=== PATIENT | male | born 1940 | race Hispanic/Latino ===

== ENCOUNTER 2017-07-29 10:58 | Outpatient (CLI) | payer MEDICARE, MEDICAID ==
--- NOTE | 2017-07-29 12:54 | SJPRAD ---
PA AND LATERAL CHEST: History: COPD. FINDINGS: The heart size is enlarged. There are post op sternotomy changes. Right sided Mediport catheter is p resent. Surgical clips in the left hilar region with scarring and volume loss changes of the left duane ng are again noted and appear stable. IMPRESSION: Stable chest. POS: [facility]
== END 2017-07-29 10:59 | disposition home or self-care (01) ==
LOC: MWLC RAD 10:58
PROVIDERS: ATTEND Family Medicine
DX: J44.9 Chronic obstructive pulmonary disease, unspecified (principal)

== ENCOUNTER 2018-01-05 07:22 | Emergency (ER) | payer MEDICARE, MEDICAID ==
[2018-01-05 08:18] LABS: #Eosinphils 0.3 thou/uL (0.0-0.7); #Lymphocytes 1.6 thou/uL (1.20-3.40); #Neutrophils 9.7 thou/uL (1.40-6.50); %Basophils 0.1 % (0.0-1.0); %Eosinophils 2.1 % (0.0-10.0); %Monocytes 7.6 % (0.0-10.0); %Neutrophils 77.2 % (42.0-75.0); Hemoglobin 11.9 g/dL (14.0-18.0); Mean Corpuscular HGB CONC 31.2 g/dL (32.0-36.0); Mean Corpuscular Hemoglobin 28.7 pg (27.0-31.0); Mean Corpuscular Volume 91.9 fl (80.0-94.0); Platelet Count 275 thou/uL (130-400); RBC Distribution Width 14.3 % (11.5-14.5); Red Blood Cell (RBC) Count 4.16 mill/uL (4.70-6.10); White Blood Cell (WBC) Count 12.6 thou/uL (4.8-10.8)
[2018-01-05 08:21] LABS: Bilirubin Negative (Negative); Blood, Urine Large (Negative); Clarity TURBID (Clear); Glucose, Urine (Dipstick) Negative (Negative); Leukocyte Large (Negative); Nitrite Negative (Negative); Protein, Urine (Dipstick) 300 mg/dL (Neg-Trace); Specific Gravity, Urine 1.017 (1.002-1.036)
[2018-01-05 08:23] LABS: Bacteria/HPF 4+ HPF (None Seen)
[2018-01-05 08:29] LABS: Pathc Cast-AUWi Flag 201.41 (0-2.49)
[2018-01-05 08:38] LABS: ALT (SGPT) 11 U/L (8-55); AST (SGOT) 16 U/L (5-34); Albumin 2.9 g/dL (3.4-4.8); Alkaline Phosphatase 100 U/L (40-150); Anion Gap 13 mmol/L (10-20); BUN (Urea Nitrogen) 17 mg/dL (8.4-25.7); Bilirubin, Total 0.3 mg/dL (0.2-1.2); Calc. Creatinine Clearance 0 mL/min (70-130); Calcium 8.5 mg/dL (7.8-10.44); Carbon Dioxide 25 mmol/L (23-31); Chloride 99 mmol/L (98-107); Estimated GFR-MDRD 28; Globulin 4.8 g/dL (2.4-3.5); Glucose 123 mg/dL (83-110); Potassium 3.7 mmol/L (3.5-5.1); Protein, Total 7.7 g/dL (5.8-8.1); Sodium 133 mmol/L (136-145)
[2018-01-05 08:43] LABS: Amphetamine Not Detected (NotDetected); Barbiturates Screen Not Detected (NotDetected); Benzodiazepine Screen Not Detected (NotDetected); Cocaine Metabolite Screen Not Detected (NotDetected); Medtox Reader # READER 1; Methadone Not Detected (NotDetected); Methamphetamine Not Detected (NotDetected); Opiate Screen Not Detected (NotDetected); Phencyclidine (PCP) Not Detected (NotDetected); THC/Cannabinoid Screen Not Detected (NotDetected); Tricyclic Screen Not Detected (NotDetected)
[2018-01-05 08:44] LABS: Medtox Control Line Valid? VALID (VALID); Oxycodone Screen Not Detected (NotDetected)
[2018-01-05 08:46] LABS: Hyaline Casts/LPF 0-3 HYALINE CAST LPF (0-3 Hyaline); Yeast-All Forms None Seen HPF (None Seen)
[2018-01-05 08:47] LABS: Manual Microscopic Reviewed? No Path Casts Seen; Renal Epithelial 0-3 HPF (0-3); Transitional Epithelial 0-3 HPF (0-3)
--- NOTE | 2018-01-05 09:03 | RAD ---
PORTABLE CHEST: Date: 01/05/18 Time: 0822 hours HISTORY: Dyspnea. FINDINGS/IMPRESSION: Comparison made with exam of 07/29/17. Changes of median sternotomy are again seen. Right-sided Port-A-Cath remains in place. Surgical clips in the left hilar region and scarring and volume loss in the left lung are again noted. No lobar con solidation, pneumothoraces, or large effusions are seen. POS: [facility]
[2018-01-05 09:07] LABS: CKMB 3.7 ng/mL (0-6.6); Troponin I 0.014 ng/mL (< 0.028)
[2018-01-05] MEDS ORDERED: traMADol HCl 50 MG TAB ONE (09:51)
== END 2018-01-05 10:41 | disposition home or self-care (01) ==
LOC: ERS 07:22
DX: E11.649 Type 2 diabetes mellitus with hypoglycemia without coma (principal); E86.0 Dehydration; E78.5 Hyperlipidemia, unspecified; I10 Essential (primary) hypertension; Z79.899 Other long term (current) drug therapy
CPT/HCPCS: 36415; 36416; 71045; 80053; 80306; 81003; 81015; 82553; 83880; 84484; 85025; 87077; 87086; 87186; 93005; 96374; J0696

== ENCOUNTER 2018-01-07 22:47 | Emergency (ER) | payer MEDICARE, OTHER ==
[2018-01-07 23:25] LABS: #Basophils 0.1 thou/uL (0.0-0.2); #Eosinphils 0.5 thou/uL (0.0-0.7); #Monocytes 0.6 thou/uL (0.11-0.59); %Basophils 0.8 % (0.0-1.0); %Eosinophils 4.8 % (0.0-10.0); %Lymphocytes 19.8 % (21.0-51.0); %Monocytes 5.9 % (0.0-10.0); %Neutrophils 68.6 % (42.0-75.0); Mean Corpuscular Hemoglobin 29.6 pg (27.0-31.0); Mean Corpuscular Volume 89.6 fl (80.0-94.0); Platelet Count 274 thou/uL (130-400); RBC Distribution Width 13.9 % (11.5-14.5); Red Blood Cell (RBC) Count 4.07 mill/uL (4.70-6.10); White Blood Cell (WBC) Count 10.2 thou/uL (4.8-10.8)
[2018-01-07 23:43] LABS: ALT (SGPT) 20 U/L (8-55); AST (SGOT) 41 U/L (5-34); Alkaline Phosphatase 103 U/L (40-150); Anion Gap 14 mmol/L (10-20); BUN (Urea Nitrogen) 17 mg/dL (8.4-25.7); Bilirubin, Total 0.2 mg/dL (0.2-1.2); Calc. Creatinine Clearance 0 mL/min (70-130); Calcium 8.8 mg/dL (7.8-10.44); Carbon Dioxide 26 mmol/L (23-31); Chloride 99 mmol/L (98-107); Estimated GFR-MDRD 29; Globulin 4.9 g/dL (2.4-3.5); Glucose 105 mg/dL (83-110); Potassium 3.9 mmol/L (3.5-5.1); Protein, Total 7.9 g/dL (5.8-8.1); Sodium 135 mmol/L (136-145)
[2018-01-08 01:25] LABS: Bilirubin Negative (Negative); Blood, Urine Large (Negative); Glucose, Urine (Dipstick) Negative (Negative); Leukocyte Moderate (Negative); Nitrite Negative (Negative); Protein, Urine (Dipstick) 100 mg/dL (Neg-Trace); Urobilinogen 0.2 mg/dL (0.2-1.0)
[2018-01-08 01:27] LABS: Clarity Clear (Clear); RBC/HPF 0-3 HPF (0-3)
[2018-01-08 01:28] LABS: Bacteria/HPF 1+ HPF (None Seen); Hyaline Casts/LPF 0-3 HYALINE CAST LPF (0-3 Hyaline); Other Microscopic Description Less than 2 mL rec'd; Squamous Epithelial 0-3 HPF (0-3)
[2018-01-08] MEDS ORDERED: Simethicone Chewable 80 MG TAB PO SCH (02:15)
== END 2018-01-08 02:19 | disposition home or self-care (01) ==
LOC: ERS 22:47
DX: E11.649 Type 2 diabetes mellitus with hypoglycemia without coma (principal); E78.5 Hyperlipidemia, unspecified; I10 Essential (primary) hypertension; Z85.038 Personal history of other malignant neoplasm of large intestine; Z85.118 Personal history of other malignant neoplasm of bronchus and lung; Z79.84 Long term (current) use of oral hypoglycemic drugs; Z79.899 Other long term (current) drug therapy
CPT/HCPCS: 36415; 36416; 80053; 81003; 81015; 85025; 94640; J7620

== ENCOUNTER 2018-01-14 10:28 | Emergency (ER) | payer MEDICARE, MEDICAID | END 2018-01-14 17:40 | disposition home or self-care (01) | LOC: ERS 10:28 | DX: E11.649 Type 2 diabetes mellitus with hypoglycemia without coma (principal); I11.0 Hypertensive heart disease with heart failure; I50.9 Heart failure, unspecified; E78.5 Hyperlipidemia, unspecified; Z79.899 Other long term (current) drug therapy | CPT/HCPCS: 36416; 99285 ==

== ENCOUNTER 2018-03-03 10:41 | Inpatient (IN) | payer MEDICARE, MEDICAID ==
[2018-03-03] MEDS ORDERED: Lorazepam 2 MG/ML VIAL ONE (11:56)
[2018-03-03] MEDS ORDERED: cefTRIAXone\\ROCEPHIN 2 GM VIAL ONE (12:23)
--- NOTE | 2018-03-03 12:33 | CT ---
CT BRAIN WITHOUT CONTRAST: HISTORY: Nausea, vomiting, weakness. FINDINGS: Comparison is made with the exam of 06/25/15. There are changes of cortical atrophy. 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 The ventricle size is appropriate and the basilar cisterns patent. No evidence of acute infarction, midline shift, or abnormal extraaxial fluid collections is seen. The bony calvarium is i ntact. IMPRESSION: No CT evidence of acute intracranial process. POS: [facility]
[2018-03-03 12:42] LABS: #Eosinphils 0.2 thou/uL (0.0-0.7); #Lymphocytes 1.1 thou/uL (1.20-3.40); #Neutrophils 14.8 thou/uL (1.40-6.50); %Basophils 0.2 % (0.0-1.0); %Eosinophils 1.1 % (0.0-10.0); %Lymphocytes 6.6 % (21.0-51.0); %Monocytes 6.1 % (0.0-10.0); %Neutrophils 86.1 % (42.0-75.0); Hemoglobin 10.5 g/dL (14.0-18.0); Mean Corpuscular HGB CONC 31.9 g/dL (32.0-36.0); Mean Corpuscular Hemoglobin 28.4 pg (27.0-31.0); Mean Corpuscular Volume 89.2 fl (80.0-94.0); Mean Platelet Volume 8.3 fL (7.4-10.4); Platelet Count 242 thou/uL (130-400); RBC Distribution Width 13.8 % (11.5-14.5); White Blood Cell (WBC) Count 17.2 thou/uL (4.8-10.8)
[2018-03-03 13:05] LABS: ALT (SGPT) 61 U/L (8-55); AST (SGOT) 104 U/L (5-34); Albumin 2.6 g/dL (3.4-4.8); Alkaline Phosphatase 207 U/L (40-150); Anion Gap 12 mmol/L (10-20); BUN (Urea Nitrogen) 33 mg/dL (8.4-25.7); Bilirubin, Total 0.9 mg/dL (0.2-1.2); Calc. Creatinine Clearance 0 mL/min (70-130); Calcium 8.4 mg/dL (7.8-10.44); Carbon Dioxide 24 mmol/L (23-31); Chloride 95 mmol/L (98-107); Estimated GFR-MDRD 21; Globulin 5.4 g/dL (2.4-3.5); Glucose 168 mg/dL (83-110); Potassium 4.8 mmol/L (3.5-5.1); Sodium 126 mmol/L (136-145)
[2018-03-03 13:51] LABS: Bacteria/HPF 1+ HPF (None Seen); Bilirubin Moderate (Negative); Blood, Urine Large (Negative); Glucose, Urine (Dipstick) 100 mg/dL (Negative); Leukocyte Large (Negative); Nitrite Positive (Negative); Protein, Urine (Dipstick) > or equal to 300 mg/dL (Neg-Trace); Squamous Epithelial 21-50 HPF (0-3); pH, Urine 6.5 (5.0-9.0)
[2018-03-03 13:53] LABS: Clarity Cloudy (Clear)
[2018-03-03 13:54] LABS: Hyaline Casts/LPF >50 HYALINE CAST LPF (0-3 Hyaline); Pathc Cast-AUWi Flag 793.73 (0-2.49)
[2018-03-03 14:09] LABS: RBC/HPF GREATER THAN 50-TNTC HPF (0-3)
[2018-03-03 14:11] LABS: Crystals/HPF 3+ AMORPH URATES HPF (Negative); Other Casts/LPF None Seen LPF (0-3 Hyaline); Yeast-All Forms None Seen HPF (None Seen)
--- NOTE | 2018-03-03 14:41 | RAD ---
RADIOGRAPH CHEST 1 VIEW: Date: 03/03/18. Time: 1:48 p.m. HISTORY: A 77-year-old male with cough. COMPARISON: 02/03/18. FINDINGS: Sternotomy wires. Right subclavian implantable vascular access port. Indistinctness of entire left cardiac border, and interval worsening of effacement of entire left hemidiaphragmatic shadow. Interv al increase in thickness of apparently moderately large soft tissue density mass at the left upper me diastinum, causing displacement of the trachea. Interstitial markings are prominent throughout the r ight lung, but there is no airspace density there. No pneumothorax. IMPRESSION: 1. Interval worsening of apparently diffuse infiltrative process involving much of the left lung, an d interval enlargement of mass-like process at the left upper mediastinum. 2. Recommend CT of the chest for further evaluation (preferably with IV contrast unless contraindica taya). RADHA [] POS: [facility]
--- NOTE | 2018-03-03 15:32 | RAD ---
ONE VIEW CHEST: Comparison: 03-03-18 History: Status post central line placement. FINDINGS: Stable right sided Mediport catheter. Stable opacification of the left hemithorax. Stable configurati on of the cardiac silhouette. Stable atherosclerosis. Stable sternotomy wires. Interval placement of right sided central venous catheter with the distal tip in the superior vena cava. No pneumothorax. IMPRESSION: 1. Stable opacification of the left hemithorax. 2. Interval placement of a right sided central venous catheter with the distal tip in the superior ve na cava. No pneumothorax. POS: [facility]
[2018-03-03] MEDS ORDERED: Norepinephrine 8 MG in Dextrose 5% in Water 242 ML IVPB PRN (15:43)
[2018-03-03 16:40] LABS: Lactic Acid 1.1 mmol/L (0.5-2.2)
[2018-03-03] MEDS ORDERED: Ondansetron HCl/PF 4 MG/2 ML Vial IVP PRN (19:10)
[2018-03-03] MEDS ORDERED: CCU Electrolyte Replacement 1 EACH FS SCH (19:10)
[2018-03-03] MEDS ORDERED: Dextrose 5% in Water 1,000 ML IV PRN (19:10)
[2018-03-03] MEDS ORDERED: Norepinephrine 8 MG/0.9% NS 250 ML IVPB SCH (19:10)
[2018-03-03] MEDS ORDERED: Dextrose 50% Abboject 50 ML SYRINGE SLOW IVP PRN (19:10)
[2018-03-03] MEDS ORDERED: Potassium Phosphate 9 MMOL in Sodium Chloride 0.9% 100 ML IVPB PRN (19:16)
[2018-03-03] MEDS ORDERED: Potassium Chloride 40 MEQ in Premix Bag 1 BAG IVPB PRN (19:16)
[2018-03-03] MEDS ORDERED: Magnesium Oxide 400 MG TAB PO PRN ×2 (19:16)
[2018-03-03] MEDS ORDERED: Potassium Chloride 40 MEQ in Sodium Chloride 0.9% 250 ML 250 ML IVPB PRN (19:16)
[2018-03-03] MEDS ORDERED: Potassium Phosphate 15 MMOL in Sodium Chloride 0.9% 250 ML 250 ML IV PRN (19:16)
[2018-03-03] MEDS ORDERED: Potassium Chloride 20 MEQ TAB PO PRN (19:16)
[2018-03-03] MEDS ORDERED: CCU ELECTROLYTE REPLACEMENT PROTOCOL FS PRN (19:16)
[2018-03-03] MEDS ORDERED: Magnesium 2 GM/NS 0.9% 100 ML 2 GM in Premix Bag 1 BAG IVPB PRN (19:16)
[2018-03-03] MEDS ORDERED: Potassium Phosphate 12 MMOL in Sodium Chloride 0.9% 250 ML 250 ML IV PRN (19:16)
[2018-03-03] MEDS: Benzonatate 100 MG CAP PO SCH (20:34)
[2018-03-03] MEDS: traMADol HCl 50 MG TAB PO PRN (20:35)
[2018-03-03] MEDS: Cefepime 2 GM, Syringe 2.5 ML in Sterile Water 10 ML SLOW IVP SCH (20:36)
[2018-03-03] MEDS: Sodium Chloride 0.9% 1,000 ML IV SCH (20:39)
[2018-03-03] MEDS: HumaLOG 300 UNITS/3 ML VIAL SC PRN (20:54)
[2018-03-03] MEDS ORDERED: Cefepime 2 GM in Sodium Chloride 0.9% 100 ML IVPB SCH (21:00)
--- NOTE | 2018-03-03 21:30 | CON ---
DATE OF CONSULTATION: 03/03/2018 REASON FOR CONSULTATION: CCU admission for blood pressure support related to hypotension. HISTORY OF PRESENT ILLNESS: This is a patient who has formerly seen my partner , Dr. Dolan. He has a history of colon cancer and has a colostomy and an indwelling suprapubic catheter. He has had poor dietary intake and fluid intake over the last 3 days. He was brought to the ER and found to be hypotensive. He was given 3 liters of fluid and subsequently started on Levophed drip. His suprapubic catheter was changed out. The source of infection seems to be a suprapubic and he has lots of cellulitis around the suprapubic insertion site. PAST MEDICAL HISTORY: 1. Colon cancer. 2. Diabetes mellitus type 2. 3. Status post low anterior resection with subsequent radiation therapy. 4. Colonic vesicular fistula. PAST SURGICAL HISTORY: 1. Suprapubic catheter placement. 2. Coronary artery bypass grafting surgery. 3. Right MediPort placement. SOCIAL HISTORY: Former smoker, does not consume alcohol. Lives at home in [place]. ALLERGIES: ACETAMINOPHEN. FAMILY MEDICAL HISTORY: Unremarkable. MEDICATIONS PRIOR TO ADMISSION: Tramadol, Glucotrol, sertraline, Ditropan, meclizine, losartan, levothyroxine, Levemir, ciprofloxacin, calcitriol, benzonatate, atorvastatin and aspirin. REVIEW OF SYSTEMS: Twelve point review of systems otherwise negative. PHYSICAL EXAMINATION: VITAL SIGNS: Temperature 97.0, pulse 73, blood pressure 97/62 on 2.5 mcg of Levophed per minute, O2 sat 100%, respiratory rate 19. GENERAL: He is awake, pleasant, and in no distress. HEENT: Unremarkable. NECK: Without adenopathy, JVD, or bruits. LUNGS: Coarse breath sounds bilaterally. CARDIOVASCULAR: S1, S2, slightly tachycardic without murmur. ABDOMEN: Suprapubic catheter site showed a denuded skin around the catheter site. He has a colostomy present in the left side. EXTREMITIES: No clubbing, cyanosis, or edema. NEUROLOGIC: Grossly intact throughout. LAB AND X-RAY FINDINGS: Sodium 126, potassium 4.8, chloride 95, CO2 of 24, BUN 33, creatinine 2.8, glucose 168. Initial lactate 2.5, repeat lactate 1.1, AST 104, ALT 61, alkaline phosphatase 207. White blood cell count 17.2, hematocrit 33, platelet count 242 with 86% neutrophils. Brain CT showed no evidence of intracranial process. Chest x-ray reviewed personally by myself demonstrates a right IJ central line that is in good position. He has chronic interstitial changes in the left base. This looks like it was present back in January. ASSESSMENT: 1. Septic shock, likely from urosepsis related suprapubic catheter. 2. Cellulitis around the suprapubic catheter site. 3. History of colon cancer. 4. Prerenal azotemia. PLAN: I have reviewed the orders from the Hospitalist group. I agree with the IV fluid resuscitation, low dose Levophed and broad spectrum IV antibiotics include cefepime and Cipro. I will inform Dr. Dolan the patient's hospitalization. The consultation encompassed 70 minutes time, of that time, greater than 50% was spent with the patient and/or on the patient's unit in the hospital [facility]
[2018-03-04] MEDS: Sodium Chloride 0.9% 1,000 ML IV SCH ×4 (03:10→23:21)
[2018-03-04] MEDS: traMADol HCl 50 MG TAB PO PRN ×2 (03:29→20:08)
[2018-03-04] MEDS: Benzonatate 100 MG CAP PO SCH ×3 (08:54→20:08)
[2018-03-04] MEDS: Aspirin 81 mg Enteric Coated Tablet PO SCH (08:54)
[2018-03-04] MEDS: Levothyroxine 150 MCG TAB PO SCH (08:54)
[2018-03-04] MEDS: HumaLOG 300 UNITS/3 ML VIAL SC PRN ×4 (08:59→21:33)
[2018-03-04] MEDS: Cefepime 2 GM, Syringe 2.5 ML in Sterile Water 10 ML SLOW IVP SCH ×2 (09:03→21:37)
[2018-03-04] MEDS: Oxybutynin 5 MG TAB PO SCH (09:03)
--- NOTE | 2018-03-04 09:10 | PRG ---
DATE OF SERVICE: 03/04/2018 This morning he is awake, alert, responsive. He is off all the pressors. PHYSICAL EXAMINATION: VITAL SIGNS: Blood pressure is 120/68, pulse is 74, sats are 99% on 2 liters, respirations 21. He has pain, nausea or vomiting. He had difficulty breathing. He was hypotensive yesterday, felt secondary to urosepsis. GENERAL: On examination, as noted, no distress. VITAL SIGNS: Blood pressure is 120/66, pulse 76. Respirations 21. CHEST: Chest revealed minimal rhonchi. CARDIAC: Normal S1, S2, no gallops. ABDOMEN: Soft, no masses. His chest x-ray shows pacemaker in place. Some cephalization. Slight haziness in the left base. He had a CT brain done which showed no evidence of any acute process. His lab this morning shows his white count 17,000, H&H 10 and 33, platelet count 242. Sodium is 126. Creatinine is 2.8. IMPRESSION: 1. Urosepsis. 2. Hypotension. 3. Hyponatremia. 4. Severe deconditioning. PLAN: Since his hypotension has improved I suggest PT and supportive care. Continue IV antibiotics as prescribed. Hopefully, when stable, he can be transferred out of the ICU in the next 24-48 hours. I will follow.
--- NOTE | 2018-03-04 17:12 | PDOC.PN ---
- Subjective Encounter Start Date: 03/04/18 Encounter Start Time: 14:40 seeing pt in follow up for UTi, sepsis, and septic shock PT awake and alert, sitting up in bed, feeling much better. weaned off of levophed around 2am, and has remained stable. HR normal. tolerating IV abx. BCx 1/2 sets positive for CoNS - contaminant, UCx pending no f/C, no N/V//D/C, but does have a decreased appetite. no other complaints 10 point ROs performed and neg for all systems except as per HPI - Objective MAR Reviewed: Yes Vital Signs & Weight: Vital Signs (12 hours) Temp Pulse Resp Pulse Ox 03/04/18 16:00 97.9 F 03/04/18 12:00 97.9 F 03/04/18 08:00 98 F 69 18 100 Most Recent Monitor Data Heart Rate from ECG 67 NIBP 143/55 NIBP BP-Mean 72 Respiration from ECG 28 SpO2 100 I&O: 03/03/18 03/04/18 03/05/18 06:59 06:59 06:59 Intake Total 1531 1020 Output Total 1235 1320 Balance 296 -300 Result Diagrams: 03/03/18 11:25 03/03/18 11:25 Additional Labs: Accuchecks 03/04/18 03/04/18 03/04/18 16:31 11:17 06:01 POC Glucose 173 H 202 H 187 H 03/03/18 20:54 POC Glucose 238 H EKG Reviewed by me: Yes Phys Exam - Physical Examination Constitutional: NAD HEENT: PERRLA, moist MMs, sclera anicteric, oral pharynx no lesions Neck: no nodes, no JVD, supple, full ROM Respiratory: no wheezing, no rales, no rhonchi, clear to auscultation bilateral Cardiovascular: RRR, no significant murmur, no rub Gastrointestinal: soft, non-tender, no distention, positive bowel sounds colostomy site intact, SP tube site with decreased erythema Musculoskeletal: pulses present, edema present Neurological: non-focal, normal sensation, moves all 4 limbs Lymphatic: no nodes Psychiatric: normal affect, A&O x 3 Skin: no rash, normal turgor, cap refill <2 seconds Dx/Plan (1) Catheter-associated urinary tract infection Code(s): T83.511A - I/I REACT D/T INDWELLING URETHRAL CATHETER, INIT; N39.0 - URINARY TRACT INFECTION, SITE NOT SPECIFIED Status: Acute Qualifiers: Indwelling urinary catheter type: cystostomy catheter Encounter type: initial encounter Qualified Code(s): T83.510A - Infection and inflammatory reaction due to cystostomy catheter, initial encounter; N39.0 - Urinary tract infection, site not specified; N39.0 - Urinary tract infection, site not specified Comment: suprapubic catheter, infection and sepsis present on admission (2) Septic shock Code(s): A41.9 - SEPSIS, UNSPECIFIED ORGANISM; R65.21 - SEVERE SEPSIS WITH SEPTIC SHOCK Status: Acute Comment: present on admit, resolving. off of pressors, WBC still elevated, knwon infection, HR down, feeling better, N/V resolved (3) History of colon cancer Code(s): Z85.038 - PERSONAL HISTORY OF MALIGNANT NEOPLASM OF LARGE INTESTINE Status: Chronic (4) History of lung cancer Code(s): Z85.118 - PERSONAL HISTORY OF MALIGNANT NEOPLASM OF BRONCHUS AND LUNG Status: Chronic (5) DM2 (diabetes mellitus, type 2) Status: Chronic Qualifiers: Diabetes mellitus long-term insulin use: with marine oil terminal superintendent use Diabetes mellitus complication status: without complication Qualified Code(s): E11.9 - Type 2 diabetes mellitus without complications; Z79.4 - care home (current) use of insulin; Z79.4 - adjunct faculty for medical terminology (current) use of insulin; Z79.4 - adjunct faculty for medical terminology ( current) use of insulin; Z79.4 - care home (current) use of insulin - Plan cont current plan of care, simon catheter, continue antibiotics, PT/OT, respiratory therapy, out of bed/ambulate * .
[2018-03-05] MEDS: Sodium Chloride 0.9% 1,000 ML IV SCH ×2 (01:23→08:26)
[2018-03-05 04:49] LABS: #Eosinphils 0.4 thou/uL (0.0-0.7); #Lymphocytes 1.5 thou/uL (1.20-3.40); #Monocytes 0.9 thou/uL (0.11-0.59); #Neutrophils 7.3 thou/uL (1.40-6.50); %Basophils 0.1 % (0.0-1.0); %Eosinophils 3.6 % (0.0-10.0); %Lymphocytes 14.5 % (21.0-51.0); %Monocytes 8.6 % (0.0-10.0); %Neutrophils 73.3 % (42.0-75.0); Hemoglobin 9.2 g/dL (14.0-18.0); Mean Corpuscular HGB CONC 31.5 g/dL (32.0-36.0); Mean Corpuscular Volume 88.8 fl (80.0-94.0); Mean Platelet Volume 7.7 fL (7.4-10.4); Platelet Count 214 thou/uL (130-400); RBC Distribution Width 13.9 % (11.5-14.5); Red Blood Cell (RBC) Count 3.29 mill/uL (4.70-6.10)
[2018-03-05 04:55] LABS: ALT (SGPT) 45 U/L (8-55); AST (SGOT) 52 U/L (5-34); Albumin 2.1 g/dL (3.4-4.8); Alkaline Phosphatase 183 U/L (40-150); Anion Gap 10 mmol/L (10-20); BUN (Urea Nitrogen) 19 mg/dL (8.4-25.7); Bilirubin, Total 0.4 mg/dL (0.2-1.2); Calc. Creatinine Clearance 43 mL/min (70-130); Calcium 7.5 mg/dL (7.8-10.44); Carbon Dioxide 22 mmol/L (23-31); Chloride 109 mmol/L (98-107); Estimated GFR-MDRD 39; Globulin 4.3 g/dL (2.4-3.5); Glucose 118 mg/dL (83-110); Magnesium 1.5 mg/dL (1.6-2.6); Protein, Total 6.4 g/dL (5.8-8.1); Sodium 137 mmol/L (136-145)
[2018-03-05] MEDS: traMADol HCl 50 MG TAB PO PRN ×3 (05:43→17:41)
[2018-03-05] MEDS: Levothyroxine 150 MCG TAB PO SCH (08:15)
[2018-03-05] MEDS: Aspirin 81 mg Enteric Coated Tablet PO SCH (08:17)
[2018-03-05] MEDS: Oxybutynin 5 MG TAB PO SCH (08:17)
[2018-03-05] MEDS: Benzonatate 100 MG CAP PO SCH ×3 (08:17→21:52)
[2018-03-05] MEDS: Ondansetron ODT 4 MG TAB PO PRN (08:24)
[2018-03-05] MEDS: Cefepime 2 GM, Syringe 2.5 ML in Sterile Water 10 ML SLOW IVP SCH ×2 (08:25→21:52)
--- NOTE | 2018-03-05 11:11 | PRG ---
DATE OF SERVICE: 03/05/2018 A 77-year-old gentleman who this morning is complaining of abdominal pain, but denies any nausea or vomiting. He denies difficulty breathing. PHYSICAL EXAMINATION: VITAL SIGNS: Sats are 95% on room air, temperature 97, blood pressure 130/70. CHEST: Chest revealed minimal rhonchi. CARDIAC: Normal S1-S2. No gallops. ABDOMEN: Soft. LABORATORY: White count 10,000, H&H 9 and 29, platelet count is normal. Creatinine 1.72. Blood cul ture; coagulase negative staph, probably a contamination. IMPRESSION: 1. Urinary tract infection. 2. Abdominal pain. 3. Diabetes. 4. Metastatic cancer. PLAN: Continue antibiotics. We will deescalate once all the cultures are back. I will follow.
--- NOTE | 2018-03-05 14:07 | PDOC.PN ---
- Subjective Encounter Start Date: 03/05/18 Encounter Start Time: 12:05 Patiernt is seen today, alert and oriented. No other Concer nnoted. He wants to go home soon. He is admitted with UTI and septic shock. Doing better. - Objective Vital Signs & Weight: Vital Signs (12 hours) Temp Pulse Resp BP Pulse Ox 03/05/18 12:00 98.2 F 79 18 130/69 97 03/05/18 08:14 97.8 F 90 16 136/70 95 03/05/18 07:53 98.7 F 77 16 95 03/05/18 05:02 97 03/05/18 04:48 98 F 77 16 131/63 97 Weight Weight 179 lb Most Recent Monitor Data Heart Rate from ECG 67 NIBP 143/55 NIBP BP-Mean 72 Respiration from ECG 28 SpO2 100 I&O: 03/04/18 03/05/18 03/06/18 06:59 06:59 06:59 Intake Total 1531 4643 Output Total 1235 3245 Balance 296 1398 Result Diagrams: 03/05/18 03:49 03/05/18 03:49 Additional Labs: Accuchecks 03/05/18 03/05/18 03/05/18 11:55 06:24 06:11 POC Glucose 199 H 118 H 119 H 03/04/18 03/04/18 21:31 16:31 POC Glucose 226 H 173 H Radiology Reviewed by me: Yes EKG Reviewed by me: Yes Phys Exam - Physical Examination HEENT: PERRLA, moist MMs Neck: no nodes, no JVD Respiratory: wheezing present Cardiovascular: RRR, no significant murmur Gastrointestinal: soft, non-tender Musculoskeletal: no edema, pulses present Neurological: non-focal, normal sensation Lymphatic: no nodes Psychiatric: normal affect, A&O x 3 Skin: no rash, normal turgor Dx/Plan (1) Septic shock Code(s): A41.9 - SEPSIS, UNSPECIFIED ORGANISM; R65.21 - SEVERE SEPSIS WITH SEPTIC SHOCK Status: Acute Comment: present on admit, resolving. off of pressors, WBC normal, knwon infection, HR down, feeling better, N/V resolved, Will d/c IV fluids. 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 (3) VINAY (acute kidney injury) Code(s): N17.9 - ACUTE KIDNEY FAILURE, UNSPECIFIED Status: Acute Comment: improving. (4) UTI (urinary tract infection) Status: Acute Qualifiers: Urinary tract infection type: catheter-associated UTI Encounter type: initial encounter Comment: Due to multiple bacteria, Still senetitivities pending. (5) CKD (chronic kidney disease) stage 4, GFR 15-29 ml/min Code(s): N18.4 - CHRONIC KIDNEY DISEASE, STAGE 4 (SEVERE) Status: Chronic (6) Colon cancer Code(s): C18.9 - MALIGNANT NEOPLASM OF COLON, UNSPECIFIED Status: Chronic Comment: Shayan. (7) Hypertension Code(s): I10 - ESSENTIAL (PRIMARY) HYPERTENSION Status: Chronic Comment: Shayan, Now Will restart his home meds. - Plan cont current plan of care, continue antibiotics, PT/OT, addiction social worker, incentive spirometry, out of bed/ambulate Plan to Discharge patient home Soon, likely over the weekend. * . - Discharge Day Encounter end time: 12:40 Review of Systems - Review of Systems Constitutional: negative: fever, chills, sweats, weakness, malaise, other Eyes: negative: Pain, Vision Change, Conjunctivae Inflammation, Eyelid Inflammation, Redness, Other ENT: negative: Ear Pain, Ear Discharge, Nose Pain, Nose Discharge, Nose Congestion, Mouth Pain, Mouth Swelling, Throat Pain, Throat Swelling, Other Respiratory: Shortness of Breath, Wheezing Cardiovascular: negative: chest pain, palpitations, orthopnea, paroxysmal nocturnal dyspnea, edema, light headedness, other Gastrointestinal: negative: Nausea, Vomiting, Abdominal Pain, Diarrhea, Constipation, Melena, Hematochezia, Other Genitourinary: negative: Dysuria, Frequency, Incontinence, Hematuria, Retention , Other Musculoskeletal: negative: Neck Pain, Shoulder Pain, Arm Pain, Back Pain, Hand Pain, Leg Pain, Foot Pain, Other - Medications/Allergies Allergies/Adverse Reactions: Allergies Allergy/AdvReac Type Severity Reaction Status Date / Time acetaminophen [From Tylenol] Allergy Verified 05/29/17 02:09 Medications: Current Medications Aspirin (Ecotrin) 81 mg PO DAILY [facility] Last Admin: 03/05/18 08:17 Dose: 81 mg Benzonatate (Tessalon) 200 mg PO TID [facility] Last Admin: 03/05/18 08:17 Dose: 200 mg Dextrose/Water (Dextrose 50%) 25 gm SLOW IVP PRN PRN PRN Reason: Hypoglycemia Glucagon (Glucagon) 1 mg IM PRN PRN PRN Reason: Hypoglycemia Ciprofloxacin/Dextrose 400 mg/ (Device) 200 mls @ 200 mls/hr IVPB Q12HR [facility] Last Admin: 03/05/18 08:16 Dose: 200 mls Dextrose/Water (D5w) 1,000 mls @ 0 mls/hr IV .Q0M PRN; As Directed PRN Reason: Hypoglycemia Cefepime HCl 2 gm/ Syringe 2.5 (ml/ Sterile Water) 12.5 mls @ 150 mls/hr SLOW IVP Q12HR [facility] Last Admin: 03/05/18 08:25 Dose: 12.5 mls Insulin Human Lispro (Humalog) 0 units SC .MILD SLIDING SCALE PRN PRN Reason: Mild Correctional Scale Last Admin: 03/04/18 21:33 Dose: 3 unit Levothyroxine Sodium (Synthroid) 150 mcg PO DAILY [facility] Last Admin: 03/05/18 08:15 Dose: 150 mcg Ondansetron HCl (Zofran Odt) 4 mg PO Q6H PRN PRN Reason: Nausea/Vomiting Last Admin: 03/05/18 08:24 Dose: 4 mg Ondansetron HCl (Zofran) 4 mg IVP Q6H PRN PRN Reason: Nausea/Vomiting Oxybutynin Chloride (Ditropan) 10 mg PO DAILY [facility] Last Admin: 03/05/18 08:17 Dose: 10 mg Sodium Chloride (Flush - Normal Saline) 10 ml IVF Q12HR [facility] Last Admin: 03/05/18 08:25 Dose: 10 ml Sodium Chloride (Flush - Normal Saline) 10 ml IVF PRN PRN PRN Reason: Saline Flush Tramadol HCl (Ultram) 50 mg PO Q6H PRN PRN Reason: Pain Last Admin: 03/05/18 11:32 Dose: 50 mg
--- NOTE | 2018-03-05 15:04 | RAD ---
PORTABLE CHEST ONE VIEW: 03/05/2018 1:37 p.m. HISTORY: Shortness of breath and cough. COMPARISON: 01/22/2016 FINDINGS: Changes of median sternotomy are again seen. The right-sided Port-A-Cath remains in place. There reynolds s been interval placement of a right internal jugular central line, with the tip in the projection of the SVC. No pneumothoraces are identified. Postop changes and chronic changes in the left lung are again seen. IMPRESSION: No acute process. POS: [facility]
[2018-03-05] MEDS: HumaLOG 300 UNITS/3 ML VIAL SC PRN (17:43)
[2018-03-06] MEDS: Levothyroxine 150 MCG TAB PO SCH (05:24)
[2018-03-06 05:54] LABS: #Eosinphils 0.5 thou/uL (0.0-0.7); #Lymphocytes 1.4 thou/uL (1.20-3.40); #Monocytes 0.8 thou/uL (0.11-0.59); #Neutrophils 7.1 thou/uL (1.40-6.50); %Basophils 0.1 % (0.0-1.0); %Eosinophils 5.5 % (0.0-10.0); %Lymphocytes 14.5 % (21.0-51.0); %Monocytes 7.9 % (0.0-10.0); %Neutrophils 71.9 % (42.0-75.0); Hemoglobin 8.9 g/dL (14.0-18.0); Mean Corpuscular HGB CONC 31.9 g/dL (32.0-36.0); Mean Corpuscular Hemoglobin 28.1 pg (27.0-31.0); Mean Corpuscular Volume 88.2 fl (80.0-94.0); Mean Platelet Volume 7.4 fL (7.4-10.4); Platelet Count 216 thou/uL (130-400); RBC Distribution Width 13.9 % (11.5-14.5); Red Blood Cell (RBC) Count 3.16 mill/uL (4.70-6.10); White Blood Cell (WBC) Count 9.9 thou/uL (4.8-10.8)
[2018-03-06 06:03] LABS: Anion Gap 8 mmol/L (10-20); BUN (Urea Nitrogen) 14 mg/dL (8.4-25.7); Calc. Creatinine Clearance 46 mL/min (70-130); Calcium 7.8 mg/dL (7.8-10.44); Carbon Dioxide 23 mmol/L (23-31); Chloride 108 mmol/L (98-107); Estimated GFR-MDRD 43; Glucose 128 mg/dL (83-110); Potassium 3.8 mmol/L (3.5-5.1); Sodium 135 mmol/L (136-145)
[2018-03-06] MEDS: Aspirin 81 mg Enteric Coated Tablet PO SCH (08:55)
[2018-03-06] MEDS: Benzonatate 100 MG CAP PO SCH ×3 (08:55→20:30)
[2018-03-06] MEDS: Oxybutynin 5 MG TAB PO SCH (08:58)
[2018-03-06] MEDS: Cefepime 2 GM, Syringe 2.5 ML in Sterile Water 10 ML SLOW IVP SCH (08:59)
--- NOTE | 2018-03-06 12:12 | PRG ---
DATE OF SERVICE: 03/06/2018 SUBJECTIVE: He was transferred from the ICU. He is no longer hypertensive. OBJECTIVE: VITAL SIGNS: Blood pressure is 147/64, sats are 97%, temperature 97, respirations 18, pulse 78. CHEST: Chest reveals decreased breath sounds, no wheezing. CARDIAC: Normal S1, S2, no gallops. ABDOMEN: Soft, no masses. LABORATORY DATA: White count 9000, H&H is 9 and 27, platelet count is 216, creatinine 1.5. Electrol ytes are normal. BNP is 595. X-RAY FINDINGS: X-ray shows chronic changes in the left lung. IMPRESSION: 1. Urosepsis. 2. Hypertension. PLAN: 1. Antibiotics as per Infectious Disease. 2. Pulmonary and critical care will follow at a distance. Can probably deescalate the antibiotics and switch him to oral medication.
[2018-03-06] MEDS: HumaLOG 300 UNITS/3 ML VIAL SC PRN (12:45)
[2018-03-06] MEDS: traMADol HCl 50 MG TAB PO PRN ×2 (12:46→18:29)
--- NOTE | 2018-03-06 14:04 | PDOC.PN ---
- Subjective Encounter Start Date: 03/06/18 Encounter Start Time: 09:00 Patient is Seen today, alert and oriented. No other concern snoted. He is able to walk few steps, has indewelling cath. pt admitted with Septic Shock from UTI. - Objective MAR Reviewed: Yes Vital Signs & Weight: Vital Signs (12 hours) Temp Pulse Resp BP Pulse Ox 03/06/18 11:51 98.8 F 74 16 119/59 L 98 03/06/18 08:06 97.9 F 78 16 147/64 H 97 03/06/18 08:00 97.9 F 78 16 97 Weight Weight 179 lb 3.2 oz Most Recent Monitor Data Heart Rate from ECG 67 NIBP 143/55 NIBP BP-Mean 72 Respiration from ECG 28 SpO2 100 I&O: 03/05/18 03/06/18 03/07/18 06:59 06:59 06:59 Intake Total 4643 1640 Output Total 3245 3425 Balance 1398 -1785 Result Diagrams: 03/06/18 05:44 03/06/18 05:44 Additional Labs: Accuchecks 03/06/18 03/06/18 03/05/18 11:52 04:53 20:37 POC Glucose 177 H 120 H 153 H 03/05/18 16:39 POC Glucose 167 H Radiology Reviewed by me: Yes Phys Exam - Physical Examination HEENT: PERRLA, moist MMs Neck: no nodes, no JVD Respiratory: no wheezing, no rales Cardiovascular: RRR, no significant murmur Gastrointestinal: soft, non-tender Musculoskeletal: no edema, pulses present Neurological: non-focal, normal sensation Lymphatic: no nodes Psychiatric: normal affect Dx/Plan (1) Septic shock Code(s): A41.9 - SEPSIS, UNSPECIFIED ORGANISM; R65.21 - SEVERE SEPSIS WITH SEPTIC SHOCK Status: Acute Comment: present on admit, resolving. off of pressors, WBC normal, knwon infection, HR down, feeling better, N/V resolved, Will d/c IV fluids. (2) DM2 (diabetes mellitus, type 2) Status: Chronic Qualifiers: Diabetes mellitus prison insulin use: with electronic instrument trades worker use Diabetes mellitus complication status: without complication Qualified Code(s): E11.9 - Type 2 diabetes mellitus without complications; Z79.4 - farm equipment engine mechanic (current) use of insulin; Z79.4 - farm equipment engine mechanic (current) use of insulin; Z79.4 - farm equipment engine mechanic ( current) use of insulin; Z79.4 - farm equipment engine mechanic (current) use of insulin Comment: Shayan, Continue with SSI. (3) VINAY (acute kidney injury) Code(s): N17.9 - ACUTE KIDNEY FAILURE, UNSPECIFIED Status: Acute Comment: improving. (4) UTI (urinary tract infection) Status: Acute Qualifiers: Urinary tract infection type: catheter-associated UTI Encounter type: initial encounter Comment: Due to multiple bacteria, Still senetitivities pending. Will d/c IV Abx, transition to Po keflex (5) CKD (chronic kidney disease) stage 4, GFR 15-29 ml/min Code(s): N18.4 - CHRONIC KIDNEY DISEASE, STAGE 4 (SEVERE) Status: Chronic (6) Colon cancer Code(s): C18.9 - MALIGNANT NEOPLASM OF COLON, UNSPECIFIED Status: Chronic Comment: Shayan. (7) Hypertension Code(s): I10 - ESSENTIAL (PRIMARY) HYPERTENSION Status: Chronic Comment: Shayan, Now Will restart his home meds. - Plan cont current plan of care, continue antibiotics, PT/OT, social worker palliative care, respiratory therapy, incentive spirometry, DVT proph w/lovenox * .Plan discharge home tomorrow with home health - Discharge Day Encounter end time: 09:35 Review of Systems - Review of Systems Eyes: negative: Pain, Vision Change, Conjunctivae Inflammation, Eyelid Inflammation, Redness, Other ENT: negative: Ear Pain, Ear Discharge, Nose Pain, Nose Discharge, Nose Congestion, Mouth Pain, Mouth Swelling, Throat Pain, Throat Swelling, Other Respiratory: negative: Cough, Dry, Shortness of Breath, Hemoptysis, SOB with Excertion, Pleuritic Pain, Sputum, Wheezing Cardiovascular: negative: chest pain, palpitations, orthopnea, paroxysmal nocturnal dyspnea, edema, light headedness, other Gastrointestinal: negative: Nausea, Vomiting, Abdominal Pain, Diarrhea, Constipation, Melena, Hematochezia, Other Genitourinary: negative: Dysuria, Frequency, Incontinence, Hematuria, Retention , Other Musculoskeletal: negative: Neck Pain, Shoulder Pain, Arm Pain, Back Pain, Hand Pain, Leg Pain, Foot Pain, Other - Medications/Allergies Allergies/Adverse Reactions: Allergies Allergy/AdvReac Type Severity Reaction Status Date / Time acetaminophen [From Tylenol] Allergy Verified 05/29/17 02:09 Medications: Current Medications Aspirin (Ecotrin) 81 mg PO DAILY [facility] Last Admin: 03/06/18 08:55 Dose: 81 mg Benzonatate (Tessalon) 200 mg PO TID [facility] Last Admin: 03/06/18 08:55 Dose: 200 mg Dextrose/Water (Dextrose 50%) 25 gm SLOW IVP PRN PRN PRN Reason: Hypoglycemia Glucagon (Glucagon) 1 mg IM PRN PRN PRN Reason: Hypoglycemia Ciprofloxacin/Dextrose 400 mg/ (Device) 200 mls @ 200 mls/hr IVPB Q12HR [facility] Last Admin: 03/06/18 08:55 Dose: 200 mls Dextrose/Water (D5w) 1,000 mls @ 0 mls/hr IV .Q0M PRN; As Directed PRN Reason: Hypoglycemia Cefepime HCl 2 gm/ Syringe 2.5 (ml/ Sterile Water) 12.5 mls @ 150 mls/hr SLOW IVP Q12HR [facility] Last Admin: 03/06/18 08:59 Dose: 12.5 mls Insulin Human Lispro (Humalog) 0 units SC .MILD SLIDING SCALE PRN PRN Reason: Mild Correctional Scale Last Admin: 03/06/18 12:45 Dose: 2 unit Levothyroxine Sodium (Synthroid) 150 mcg PO 0600 [facility] Last Admin: 03/06/18 05:24 Dose: 150 mcg Ondansetron HCl (Zofran Odt) 4 mg PO Q6H PRN PRN Reason: Nausea/Vomiting Last Admin: 03/05/18 08:24 Dose: 4 mg Ondansetron HCl (Zofran) 4 mg IVP Q6H PRN PRN Reason: Nausea/Vomiting Oxybutynin Chloride (Ditropan) 10 mg PO DAILY [facility] Last Admin: 03/06/18 08:58 Dose: 10 mg Sodium Chloride (Flush - Normal Saline) 10 ml IVF Q12HR [facility] Last Admin: 03/06/18 08:56 Dose: 10 ml Sodium Chloride (Flush - Normal Saline) 10 ml IVF PRN PRN PRN Reason: Saline Flush Tramadol HCl (Ultram) 50 mg PO Q6H PRN PRN Reason: Pain Last Admin: 03/06/18 12:46 Dose: 50 mg
[2018-03-06] MEDS: Cephalexin 250 MG CAP PO SCH ×2 (15:51→20:30)
[2018-03-06] MEDS: Cipro 250 MG TAB PO SCH (20:30)
[2018-03-07] MEDS: Cipro 250 MG TAB PO SCH ×2 (06:05→20:45)
[2018-03-07] MEDS: Levothyroxine 150 MCG TAB PO SCH (06:06)
[2018-03-07] MEDS: HumaLOG 300 UNITS/3 ML VIAL SC PRN ×3 (06:07→16:40)
[2018-03-07] MEDS: Benzonatate 100 MG CAP PO SCH ×3 (08:56→20:45)
[2018-03-07] MEDS: Aspirin 81 mg Enteric Coated Tablet PO SCH (08:56)
[2018-03-07] MEDS: Oxybutynin 5 MG TAB PO SCH (08:56)
[2018-03-07] MEDS: Cephalexin 250 MG CAP PO SCH ×3 (08:57→20:45)
--- NOTE | 2018-03-07 11:43 | PDOC.PN ---
- Subjective Encounter Start Date: 03/07/18 Encounter Start Time: 11:00 Patient is seen today, he is weak and c/o pain in left heel. He is admitted with Septic Shock with UTI. - Objective MAR Reviewed: Yes Vital Signs & Weight: Vital Signs (12 hours) Temp Pulse Resp BP Pulse Ox 03/07/18 08:07 98.2 F 82 18 109/68 97 03/07/18 07:17 98.3 F 83 16 03/07/18 03:59 98.3 F 83 16 124/70 97 03/07/18 00:10 98.7 F 73 16 102/44 L 99 Weight Weight 169 lb 8 oz Most Recent Monitor Data Heart Rate from ECG 67 NIBP 143/55 NIBP BP-Mean 72 Respiration from ECG 28 SpO2 100 I&O: 03/06/18 03/07/18 03/08/18 06:59 06:59 06:59 Intake Total 1640 1370 Output Total 3425 2650 Balance -1785 -1280 Result Diagrams: 03/06/18 05:44 03/06/18 05:44 Additional Labs: Accuchecks 03/07/18 03/07/18 03/06/18 11:09 04:21 20:37 POC Glucose 174 H 160 H 234 H 03/06/18 03/06/18 16:46 11:52 POC Glucose 146 H 177 H Radiology Reviewed by me: Yes Phys Exam - Physical Examination HEENT: PERRLA, moist MMs Neck: no nodes, no JVD Respiratory: no wheezing, no rales Cardiovascular: RRR, no significant murmur Gastrointestinal: soft, non-tender Musculoskeletal: no edema, pulses present Left heel pain. Neurological: non-focal, normal sensation Lymphatic: no nodes Psychiatric: normal affect Skin: no rash, normal turgor Dx/Plan (1) Septic shock Code(s): A41.9 - SEPSIS, UNSPECIFIED ORGANISM; R65.21 - SEVERE SEPSIS WITH SEPTIC SHOCK Status: Acute Comment: present on admit, resolving. off of pressors, WBC normal, knwon infection, HR down, feeling better, N/V resolved, Will d/c IV fluids. 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 (3) VINAY (acute kidney injury) Code(s): N17.9 - ACUTE KIDNEY FAILURE, UNSPECIFIED Status: Acute Comment: improving. (4) UTI (urinary tract infection) Status: Acute Qualifiers: Urinary tract infection type: catheter-associated UTI Encounter type: initial encounter Comment: Due to multiple bacteria, Still senetitivities pending. Will d/c IV Abx, transition to Po keflex and Cipro. Cultures remain negative, no significant bacteruria. (5) CKD (chronic kidney disease) stage 4, GFR 15-29 ml/min Code(s): N18.4 - CHRONIC KIDNEY DISEASE, STAGE 4 (SEVERE) Status: Chronic (6) Colon cancer Code(s): C18.9 - MALIGNANT NEOPLASM OF COLON, UNSPECIFIED Status: Chronic Comment: Sejaldoug. (7) Hypertension Code(s): I10 - ESSENTIAL (PRIMARY) HYPERTENSION Status: Chronic Comment: Shayan, Now Will restart his home meds. - Plan cont current plan of care, plan discussed w/ family, simon catheter, continue antibiotics, PT/OT, social science analyst, respiratory therapy, incentive spirometry, DVT proph w/lovenox Plan for PT/OT to clear patient to go home tomorrow. - Discharge Day Encounter end time: 11:35 Review of Systems - Review of Systems Eyes: negative: Pain, Vision Change, Conjunctivae Inflammation, Eyelid Inflammation, Redness, Other ENT: negative: Ear Pain, Ear Discharge, Nose Pain, Nose Discharge, Nose Congestion, Mouth Pain, Mouth Swelling, Throat Pain, Throat Swelling, Other Respiratory: negative: Cough, Dry, Shortness of Breath, Hemoptysis, SOB with Excertion, Pleuritic Pain, Sputum, Wheezing Gastrointestinal: negative: Nausea, Vomiting, Abdominal Pain, Diarrhea, Constipation, Melena, Hematochezia, Other Musculoskeletal: negative: Neck Pain, Shoulder Pain, Arm Pain, Back Pain, Hand Pain, Leg Pain, Foot Pain, Other - Medications/Allergies Allergies/Adverse Reactions: Allergies Allergy/AdvReac Type Severity Reaction Status Date / Time acetaminophen [From Tylenol] Allergy Verified 05/29/17 02:09 Medications: Current Medications Aspirin (Ecotrin) 81 mg PO DAILY [facility] Last Admin: 03/07/18 08:56 Dose: 81 mg Benzonatate (Tessalon) 200 mg PO TID [facility] Last Admin: 03/07/18 08:56 Dose: 200 mg Cephalexin (Keflex) 500 mg PO TID [facility] Last Admin: 03/07/18 08:57 Dose: 500 mg Ciprofloxacin (Cipro) 250 mg PO BID@0600,1999 [facility] Last Admin: 03/07/18 06:05 Dose: 250 mg Dextrose/Water (Dextrose 50%) 25 gm SLOW IVP PRN PRN PRN Reason: Hypoglycemia Glucagon (Glucagon) 1 mg IM PRN PRN PRN Reason: Hypoglycemia Dextrose/Water (D5w) 1,000 mls @ 0 mls/hr IV .Q0M PRN; As Directed PRN Reason: Hypoglycemia Insulin Human Lispro (Humalog) 0 units SC .MILD SLIDING SCALE PRN PRN Reason: Mild Correctional Scale Last Admin: 03/07/18 06:07 Dose: 2 unit Lactulose (Lactulose) 30 gm PO ONE [facility] Stop: 03/07/18 13:00 Levothyroxine Sodium (Synthroid) 150 mcg PO 0600 [facility] Last Admin: 03/07/18 06:06 Dose: 150 mcg Ondansetron HCl (Zofran Odt) 4 mg PO Q6H PRN PRN Reason: Nausea/Vomiting Last Admin: 03/05/18 08:24 Dose: 4 mg Ondansetron HCl (Zofran) 4 mg IVP Q6H PRN PRN Reason: Nausea/Vomiting Oxybutynin Chloride (Ditropan) 10 mg PO DAILY [facility] Last Admin: 03/07/18 08:56 Dose: 10 mg Sodium Chloride (Flush - Normal Saline) 10 ml IVF Q12HR [facility] Last Admin: 03/07/18 08:57 Dose: 10 ml Sodium Chloride (Flush - Normal Saline) 10 ml IVF PRN PRN PRN Reason: Saline Flush Tramadol HCl (Ultram) 50 mg PO Q6H PRN PRN Reason: Pain Last Admin: 03/06/18 18:29 Dose: 50 mg
[2018-03-07] MEDS: traMADol HCl 50 MG TAB PO PRN (12:02)
--- NOTE | 2018-03-07 13:32 | PRG ---
DATE OF SERVICE: 03/07/2018 OBJECTIVE: GENERAL: Awake, alert, responsive. VITAL SIGNS: Sats are 90% on room air, respiration rate 18, temperature 99, and blood pressure 140/6 5. CHEST: Bilateral rhonchi. CARDIAC: Normal S1 and S2. No gallops. ABDOMEN: No masses. IMPRESSION: Recurrent urinary tract infection, hypertension. Pulmonary-lux, he is stable enough to be discharged home.
[2018-03-07] MEDS: Ondansetron ODT 4 MG TAB PO PRN (17:48)
[2018-03-07] MEDS: Senokot 8.6 MG TAB PO PRN (23:06)
[2018-03-08] MEDS: Levothyroxine 150 MCG TAB PO SCH (05:53)
[2018-03-08] MEDS: Cipro 250 MG TAB PO SCH ×2 (05:53→20:32)
[2018-03-08 06:15] VITALS: BMI 27.8
--- NOTE | 2018-03-08 07:04 | HP ---
PRIMARY CARE PHYSICIAN: Dr. Griffin. DATE OF ADMISSION: 03/03/2018. CHIEF COMPLAINT: Nausea and vomiting. HISTORY OF PRESENT ILLNESS: Mr. Espino is a 77-year-old male with history of colon can cer, status post colostomy, lung cancer, diabetes mellitus type 2 and urinary retention status post s uprapubic tube placement. This was placed in 01/2016, it was replaced on a monthly basis, has not be en changed in almost a month now. The patient also has a history of coronary artery disease, status post 4-vessel CABG in the past. He presents to the emergency department with a 2-day history of increasing nausea, vomiting, and weak ness. The patient was seen and evaluated in the emergency department. He was noted to have torrey purulence coming out of his suprapubic tube. This was subsequently replaced and after replacement urinalysis and urine culture were sent. Blood pressure was noted to be low at outside facility. He was started on Levophed and given 4 liters of fluids. He was given vancomycin and ceftriaxone and we were swanson d for admission. The patient does complain of cough productive of some greenish colored sputum. No fevers or chills. No nausea or vomiting at present. Denies any chest pain or difficulty breathing. Further evaluation in the emergency department did show hyponatremia with a sodium of 126. The remai nder of his labs appeared fairly normal except for creatinine at 2.88, which was about doubled his no rmal. PAST MEDICAL HISTORY: 1. Colon cancer, status post colostomy. 2. Lung cancer. 3. Diabetes mellitus type 2. 4. Coronary artery disease. PAST SURGICAL HISTORY: 1. Suprapubic tube placement in 01/2016. 2. Coronary artery bypass grafting x4 vessels. 3. Colostomy placement. 4. Bilateral cataracts. HOME MEDICATIONS: 1. Oxybutynin 10 mg p.o. daily. 2. Zoloft 50 mg p.o. daily. 3. Atorvastatin 20 mg p.o. at bedtime. 4. Coreg 3.125 mg p.o. b.i.d. 5. KCl 8 mEq daily. 6. ProAir HFA 1-2 puffs q.4 hours p.r.n. 7. Losartan 25 mg p.o. daily. 8. Glipizide 1 mg p.o. q.a.m. and 0.5 mg p.o. q. noon and q.p.m. 9. Calcitriol 0.25 mcg p.o. daily. 10. Aspirin 81 mg daily. 11. Levothyroxine 150 mcg daily. 12. Nexium 40 mg daily. 13. DuoNebs 3 mL nebulizer every 6 hours as needed. 14. Levemir 25 units subcu b.i.d. 15. Tramadol as needed. 16. Zofran 4 mg p.o. q.6 hours p.r.n. ALLERGIES: ACETAMINOPHEN. FAMILY HISTORY: Negative for clotting or bleeding disorder. No immune dysfunction. SOCIAL HISTORY: Negative for habits x3. Lives in an apartment with his daughter. REVIEW OF SYSTEMS: A 10-point review of systems was performed as negative for all systems except sta taya as per HPI. PHYSICAL EXAMINATION: VITAL SIGNS: Temperature 98.5, pulse 70, blood pressure 97/59, respiratory rate 16, satting 100% on room air. GENERAL: He is awake. He is alert. He is oriented x3. He is a well-developed, well-nourished Lati [place] male who is in no acute distress, but does appear like he does not feel well. HEENT: Normocephalic and atraumatic, pupils equal, round, react to light bilaterally, mucous membran es are moist. There is no visible lesion or thrush. He has bilateral pseudophakia. NECK: Supple, without lymphadenopathy, JVD, or thyromegaly. He has Normal carotid upstroke. I do n ot appreciate bruit. LUNGS: Coarse bilateral breath sounds. There is no wheeze, no prolonged expiratory phase. There ar e coarse rales in all lung lockhart. CARDIOVASCULAR: He has normal cardiac and regular. Normal S1 and S2. He has 3/6 systolic ejection murmur in the right upper sternal border and a 2/6 holosystolic murmur at the apex. ABDOMEN: Soft, is nontender, nondistended. Colostomy is functioning with gas and formed stool in hi s bag. EXTREMITIES: No cyanosis, no clubbing. He has got 1+ edema in the bilateral lower extremities. I c annot palpate pulses. Bilateral feet are warm. SKIN: Otherwise, warm and well-perfused. He has no other rashes or lesions. MUSCULOSKELETAL: Normal to inspection. Large joints appear uninflamed. Good range of motion. No p alpable effusions. NEUROLOGIC: Cranial nerves II-XII are grossly intact. He has no focal neurologic deficits, 5/5 stre ngth, and normal speech pattern. LABORATORY DATA: Sodium 126, potassium 4.8, chloride 95, bicarbonate 24, BUN 33, creatinine 2.88, gl ucose 168 and calcium of 8.4. Liver functions showed a total protein is 5.4 which is low, albumin 2.6, alkaline phosphatase 207, T of 104 and ALT of 61. CBC showed a white count of 17.2. He has an 83% granulocyte, but no bands. Hemoglobin is 10.6, hematocrit 33.0, platelet count is 242,000. CT scan of the brain to be negative. Chest x-ray showed increased right upper lobe opacities a media stinal mass. Chest x-ray showed subclavian central venous catheter be in placed in good position. ASSESSMENT AND PLAN: 1. Urinary tract infection. 2. Severe sepsis with hypotension and septic shock. Patient on Levophed despite 4 liters of fluids. He has got acute kidney injury and definite infection. We will place him on cefepime and Cipro for coverage of his urinary tract infection. 3. Complicated urinary tract infection, catheter associated present on admission, as above. 4. Diabetes mellitus type 2, we will hold his glipizide and use sliding scale insulin. We will hold his Levemir until he is eating reliably. 5. Lung cancer. Multiple lung masses present on chest x-ray. 6. Colon cancer, status post colectomy. 7. Hypothyroidism. We will continue his levothyroxine. 8. Depression, on sertraline. 9. Hyperlipidemia on atorvastatin. We will hold at present. 10. Hypertension/coronary artery disease on Coreg. 11. Urinary retention on oxybutynin, we will continue. We will place the patient in the ICU on Levophed drip for now. We will wean as tolerated. Continue antibiotics and Pulmonary Critical Care has been consulted.
--- NOTE | 2018-03-08 09:13 | PRG ---
DATE OF SERVICE: 03/08/2018 This morning he is awake, alert, responsive. He complained of some toe pain. PHYSICAL EXAMINATION: VITAL SIGNS: Sats are 98% on room air, blood pressure 140/92, temperature 98, pulse 96, respirations 20. No respiratory distress. CHEST: Chest reveals decreased breath sounds, no wheezing. CARDIAC: Normal S1, S2, no gallops. ABDOMEN: Soft, no masses. IMPRESSION: 1. Urosepsis pretty much improved. 2. Hypertension, resolved. 2. Colon cancer. PLAN: From a pulmonary standpoint of view, stable enough to be discharged home. Pulmonary will foll ow at a distance.
[2018-03-08] MEDS: Cephalexin 250 MG CAP PO SCH ×3 (09:18→20:32)
[2018-03-08] MEDS: Aspirin 81 mg Enteric Coated Tablet PO SCH (09:18)
[2018-03-08] MEDS: Benzonatate 100 MG CAP PO SCH ×3 (09:18→20:33)
[2018-03-08] MEDS: Oxybutynin 5 MG TAB PO SCH (09:44)
[2018-03-08] MEDS: traMADol HCl 50 MG TAB PO PRN ×2 (09:47→17:59)
--- NOTE | 2018-03-08 16:25 | PDOC.PN ---
- Subjective Encounter Start Date: 03/08/18 Encounter Start Time: 12:00 Patisuzanna is seen today, alert and oriented. He was c/o severe vomiting started last night and not tolerating anything down. He has Bowel movement into his Colostomy bag. - Objective MAR Reviewed: Yes Vital Signs & Weight: Vital Signs (12 hours) Temp Pulse Resp BP Pulse Ox 03/08/18 08:00 98.7 F 96 20 98 03/08/18 07:52 98.7 F 96 20 140/92 H 98 Weight Weight 167 lb 1.6 oz Most Recent Monitor Data Heart Rate from ECG 67 NIBP 143/55 NIBP BP-Mean 72 Respiration from ECG 28 SpO2 100 I&O: 03/07/18 03/08/18 03/09/18 06:59 06:59 06:59 Intake Total 1370 1120 Output Total 2650 1850 Balance -1280 -730 Result Diagrams: 03/06/18 05:44 03/06/18 05:44 Additional Labs: Accuchecks 03/08/18 03/08/18 03/07/18 11:19 05:33 20:24 POC Glucose 169 H 172 H 135 H 03/07/18 15:30 POC Glucose 191 H Radiology Reviewed by me: Yes Phys Exam - Physical Examination HEENT: PERRLA Neck: no nodes, no JVD Respiratory: no wheezing, no rales Cardiovascular: RRR, no significant murmur Gastrointestinal: soft Distetion noted. low BS. Musculoskeletal: no edema, pulses present Neurological: non-focal, normal sensation Dx/Plan (1) Intractable nausea and vomiting Code(s): R11.2 - NAUSEA WITH VOMITING, UNSPECIFIED Status: Acute Comment: Will get Xray Abd, will closley Monitor, pt says he is not able to keep anything down. If obstruction will do NG tube with suction. (2) Septic shock Code(s): A41.9 - SEPSIS, UNSPECIFIED ORGANISM; R65.21 - SEVERE SEPSIS WITH SEPTIC SHOCK Status: Resolved Comment: present on admit, resolving. off of pressors, WBC normal, No Known infection in cultures. (3) DM2 (diabetes mellitus, type 2) Status: Chronic Qualifiers: Diabetes mellitus mcfp insulin use: with mcfp use Diabetes mellitus complication status: without complication Qualified Code(s): E11.9 - Type 2 diabetes mellitus without complications; Z79.4 - technician terminal and repeater (current) use of insulin; Z79.4 - [facility] (current) use of insulin; Z79.4 - [facility] ( current) use of insulin; Z79.4 - [facility] (current) use of insulin Comment: Shayan, Continue with SSI. (4) VINAY (acute kidney injury) Code(s): N17.9 - ACUTE KIDNEY FAILURE, UNSPECIFIED Status: Acute Comment: improving. (5) UTI (urinary tract infection) Status: Resolved Qualifiers: Urinary tract infection type: catheter-associated UTI Encounter type: initial encounter Comment: Due to multiple bacteria, Still senetitivities pending. Will d/c IV Abx, transition to Po keflex and Cipro. Cultures remain negative, no significant bacteruria. (6) CKD (chronic kidney disease) stage 4, GFR 15-29 ml/min Code(s): N18.4 - CHRONIC KIDNEY DISEASE, STAGE 4 (SEVERE) Status: Chronic (7) Colon cancer Code(s): C18.9 - MALIGNANT NEOPLASM OF COLON, UNSPECIFIED Status: Chronic Comment: rosie. (8) Hypertension Code(s): I10 - ESSENTIAL (PRIMARY) HYPERTENSION Status: Chronic Comment: Shayan, Now Will restart his home meds. - Plan cont current plan of care, PT/OT, social media senior associate, respiratory therapy, incentive spirometry, out of bed/ambulate, DVT proph w/SCDs * . - Discharge Day Encounter end time: 12:35 Review of Systems - Review of Systems Respiratory: negative: Cough, Dry, Shortness of Breath, Hemoptysis, SOB with Excertion, Pleuritic Pain, Sputum, Wheezing Cardiovascular: negative: chest pain, palpitations, orthopnea, paroxysmal nocturnal dyspnea, edema, light headedness, other Gastrointestinal: Nausea, Vomiting, Abdominal Pain Musculoskeletal: negative: Neck Pain, Shoulder Pain, Arm Pain, Back Pain, Hand Pain, Leg Pain, Foot Pain, Other Skin: negative: Rash, Lesions, Nicko, Bruising, Other - Medications/Allergies Allergies/Adverse Reactions: Allergies Allergy/AdvReac Type Severity Reaction Status Date / Time acetaminophen [From Tylenol] Allergy Verified 05/29/17 02:09 Medications: Current Medications Aspirin (Ecotrin) 81 mg PO DAILY [facility] Last Admin: 03/08/18 09:18 Dose: 81 mg Benzonatate (Tessalon) 200 mg PO TID [facility] Last Admin: 03/08/18 14:04 Dose: 200 mg Cephalexin (Keflex) 500 mg PO TID [facility] Last Admin: 03/08/18 14:05 Dose: 500 mg Ciprofloxacin (Cipro) 250 mg PO BID@0600,1999 [facility] Last Admin: 03/08/18 05:53 Dose: 250 mg Dextrose/Water (Dextrose 50%) 25 gm SLOW IVP PRN PRN PRN Reason: Hypoglycemia Glucagon (Glucagon) 1 mg IM PRN PRN PRN Reason: Hypoglycemia Dextrose/Water (D5w) 1,000 mls @ 0 mls/hr IV .Q0M PRN; As Directed PRN Reason: Hypoglycemia Insulin Human Lispro (Humalog) 0 units SC .MILD SLIDING SCALE PRN PRN Reason: Mild Correctional Scale Last Admin: 03/07/18 16:40 Dose: 2 unit Levothyroxine Sodium (Synthroid) 150 mcg PO 0600 [facility] Last Admin: 03/08/18 05:53 Dose: 150 mcg Ondansetron HCl (Zofran Odt) 4 mg PO Q6H PRN PRN Reason: Nausea/Vomiting Last Admin: 03/07/18 17:48 Dose: 4 mg Ondansetron HCl (Zofran) 4 mg IVP Q6H PRN PRN Reason: Nausea/Vomiting Last Admin: 03/08/18 09:20 Dose: 4 mg Oxybutynin Chloride (Ditropan) 10 mg PO DAILY [facility] Last Admin: 03/08/18 09:44 Dose: 10 mg Senna (Senokot) 1 tab PO BIDPRN PRN PRN Reason: Constipation Last Admin: 03/07/18 23:06 Dose: 1 tab Sodium Chloride (Flush - Normal Saline) 10 ml IVF Q12HR [facility] Last Admin: 03/08/18 09:19 Dose: 10 ml Sodium Chloride (Flush - Normal Saline) 10 ml IVF PRN PRN PRN Reason: Saline Flush Tramadol HCl (Ultram) 50 mg PO Q6H PRN PRN Reason: Pain Last Admin: 03/08/18 09:47 Dose: 50 mg
--- NOTE | 2018-03-08 16:38 | RAD ---
SINGLE VIEW OF THE ABDOMEN: COMPARISON: 12/05/12. HISTORY: Intractable abdominal pain and intractable vomiting. FINDINGS: A single view of the abdomen shows a nonspecific, nonobstructed bowel gas pattern. No suspicious tatiana cifications are present. Air is seen throughout the colon to the level of the rectum. IMPRESSION: Nonobstructed bowel gas pattern. POS: [facility]
[2018-03-08] MEDS ORDERED: Morphine 4 MG/ML VIAL SLOW IVP SCH (22:45)
[2018-03-09] MEDS: Levothyroxine 150 MCG TAB PO SCH (05:14)
[2018-03-09] MEDS: Cipro 250 MG TAB PO SCH ×2 (05:45→20:15)
[2018-03-09] MEDS: Benzonatate 100 MG CAP PO SCH ×3 (09:59→20:04)
[2018-03-09] MEDS: Cephalexin 250 MG CAP PO SCH ×3 (09:59→20:04)
[2018-03-09] MEDS: Aspirin 81 mg Enteric Coated Tablet PO SCH (09:59)
[2018-03-09] MEDS: Ondansetron ODT 4 MG TAB PO PRN (10:00)
[2018-03-09] MEDS: Oxybutynin 5 MG TAB PO SCH (10:00)
[2018-03-09] MEDS: traMADol HCl 50 MG TAB PO PRN ×2 (12:38→18:09)
[2018-03-09] MEDS: Senokot 8.6 MG TAB PO PRN (12:39)
--- NOTE | 2018-03-09 14:21 | PDOC.PN ---
- Subjective Encounter Start Date: 03/09/18 Encounter Start Time: 10:30 Subjective: awake, follows verbal stimuli -: no sob or pain -: no nausea or vomiting or abd pain - Objective MAR Reviewed: Yes Vital Signs & Weight: Vital Signs (12 hours) Temp Pulse Resp BP Pulse Ox 03/09/18 08:00 98.7 F 92 18 93 L 03/09/18 07:22 98.7 F 92 18 103/62 93 L 03/09/18 04:01 94 L Weight Weight 167 lb 1.6 oz Most Recent Monitor Data Heart Rate from ECG 67 NIBP 143/55 NIBP BP-Mean 72 Respiration from ECG 28 SpO2 100 I&O: 03/08/18 03/09/18 03/10/18 06:59 06:59 06:59 Intake Total 1120 910 Output Total 1850 1190 Balance -730 -280 Result Diagrams: 03/06/18 05:44 03/06/18 05:44 Additional Labs: Accuchecks 03/09/18 03/09/18 03/08/18 11:17 05:18 20:25 POC Glucose 192 H 141 H 187 H 03/08/18 17:00 POC Glucose 134 H Phys Exam - Physical Examination HEENT: PERRLA, moist MMs Neck: no JVD, supple Respiratory: no wheezing, no rales Cardiovascular: RRR, no significant murmur Gastrointestinal: soft, non-tender, positive bowel sounds colostomy has liq stool+ Musculoskeletal: no edema, pulses present Neurological: non-focal, moves all 4 limbs Psychiatric: A&O x 3 Dx/Plan (1) Catheter-associated urinary tract infection Code(s): T83.511A - I/I REACT D/T INDWELLING URETHRAL CATHETER, INIT; N39.0 - URINARY TRACT INFECTION, SITE NOT SPECIFIED Status: Acute Qualifiers: Indwelling urinary catheter type: cystostomy catheter Encounter type: subsequent encounter Qualified Code(s): T83.510D - Infection and inflammatory reaction due to cystostomy catheter, subsequent encounter; N39.0 - Urinary tract infection, site not specified; N39.0 - Urinary tract infection, site not specified Comment: suprapubic catheter, infection and sepsis present on admission (2) DM2 (diabetes mellitus, type 2) Status: Chronic Qualifiers: Diabetes mellitus halfway insulin use: with long term acute care registered nurse use Diabetes mellitus complication status: without complication Qualified Code(s): E11.9 - Type 2 diabetes mellitus without complications; Z79.4 - long term acute care registered nurse (current) use of insulin; Z79.4 - penitentiary (current) use of insulin; Z79.4 - penitentiary ( current) use of insulin; Z79.4 - long term acute care registered nurse (current) use of insulin (3) History of colon cancer Code(s): Z85.038 - PERSONAL HISTORY OF MALIGNANT NEOPLASM OF LARGE INTESTINE Status: Chronic (4) Sepsis Code(s): A41.9 - SEPSIS, UNSPECIFIED ORGANISM Status: Acute (5) Anemia, chronic disease Code(s): D63.8 - ANEMIA IN OTHER CHRONIC DISEASES CLASSIFIED ELSEWHERE Status : Chronic (6) Chronic kidney disease (CKD) Code(s): N18.9 - CHRONIC KIDNEY DISEASE, UNSPECIFIED Status: Chronic Qualifiers: Chronic kidney disease stage: stage 3 (moderate) Qualified Code(s): N18.3 - Chronic kidney disease, stage 3 (moderate) (7) Hypertension Code(s): I10 - ESSENTIAL (PRIMARY) HYPERTENSION Status: Chronic Qualifiers: Hypertension type: essential hypertension Qualified Code(s): I10 - Essential (primary) hypertension (8) Chronic anemia Code(s): D64.9 - ANEMIA, UNSPECIFIED Status: Chronic (9) Moderate protein malnutrition Code(s): E44.0 - MODERATE PROTEIN-CALORIE MALNUTRITION Status: Chronic - Plan is on keflex and cipro -: awaiting swing bed, PT/OT to mobilize as tolerated -: tolerating oral diet -: may dc anytime if swing bed is ready * . Review of Systems - Medications/Allergies Allergies/Adverse Reactions: Allergies Allergy/AdvReac Type Severity Reaction Status Date / Time acetaminophen [From Tylenol] Allergy Verified 05/29/17 02:09 Medications: Current Medications Aspirin (Ecotrin) 81 mg PO DAILY [facility] Last Admin: 03/09/18 09:59 Dose: 81 mg Benzonatate (Tessalon) 200 mg PO TID [facility] Last Admin: 03/09/18 09:59 Dose: 200 mg Cephalexin (Keflex) 500 mg PO TID [facility] Last Admin: 03/09/18 09:59 Dose: 500 mg Ciprofloxacin (Cipro) 250 mg PO BID@0600,2000 [facility] Last Admin: 03/09/18 05:45 Dose: 250 mg Dextrose/Water (Dextrose 50%) 25 gm SLOW IVP PRN PRN PRN Reason: Hypoglycemia Glucagon (Glucagon) 1 mg IM PRN PRN PRN Reason: Hypoglycemia Dextrose/Water (D5w) 1,000 mls @ 0 mls/hr IV .Q0M PRN; As Directed PRN Reason: Hypoglycemia Insulin Human Lispro (Humalog) 0 units SC .MILD SLIDING SCALE PRN PRN Reason: Mild Correctional Scale Last Admin: 03/07/18 16:40 Dose: 2 unit Levothyroxine Sodium (Synthroid) 150 mcg PO 0600 [facility] Last Admin: 03/09/18 05:14 Dose: 150 mcg Ondansetron HCl (Zofran Odt) 4 mg PO Q6H PRN PRN Reason: Nausea/Vomiting Last Admin: 03/09/18 10:00 Dose: 4 mg Ondansetron HCl (Zofran) 4 mg IVP Q6H PRN PRN Reason: Nausea/Vomiting Last Admin: 03/08/18 09:20 Dose: 4 mg Oxybutynin Chloride (Ditropan) 10 mg PO DAILY [facility] Last Admin: 03/09/18 10:00 Dose: 10 mg Senna (Senokot) 1 tab PO BIDPRN PRN PRN Reason: Constipation Last Admin: 03/09/18 12:39 Dose: 1 tab Sodium Chloride (Flush - Normal Saline) 10 ml IVF Q12HR [facility] Last Admin: 03/09/18 10:00 Dose: 10 ml Sodium Chloride (Flush - Normal Saline) 10 ml IVF PRN PRN PRN Reason: Saline Flush Tramadol HCl (Ultram) 50 mg PO Q6H PRN PRN Reason: Pain Last Admin: 03/09/18 12:38 Dose: 50 mg
[2018-03-09] MEDS: HumaLOG 300 UNITS/3 ML VIAL SC PRN (18:10)
[2018-03-10] MEDS: Levothyroxine 150 MCG TAB PO SCH (05:31)
[2018-03-10] MEDS: Cipro 250 MG TAB PO SCH (05:31)
[2018-03-10] MEDS: traMADol HCl 50 MG TAB PO PRN (05:37)
[2018-03-10] MEDS: Benzonatate 100 MG CAP PO SCH (08:11)
[2018-03-10] MEDS: Oxybutynin 5 MG TAB PO SCH (08:11)
[2018-03-10] MEDS: Aspirin 81 mg Enteric Coated Tablet PO SCH (08:12)
[2018-03-10 08:27] VITALS: BP 112/65; TEMP 98.1
--- NOTE | 2018-03-10 11:59 | PDOC.PN ---
- Subjective Encounter Start Date: 03/10/18 Encounter Start Time: 10:30 Subjective: awake, no complaints -: daughter at bedside -: feels good, wants to go home - Objective MAR Reviewed: Yes Vital Signs & Weight: Vital Signs (12 hours) Temp Pulse Resp BP Pulse Ox 03/10/18 08:00 98.1 F 89 18 112/65 95 Weight Weight 167 lb 1.6 oz Most Recent Monitor Data Heart Rate from ECG 67 NIBP 143/55 NIBP BP-Mean 72 Respiration from ECG 28 SpO2 100 I&O: 03/09/18 03/10/18 03/11/18 06:59 06:59 06:59 Intake Total 910 1410 Output Total 1190 1200 Balance -280 210 Result Diagrams: 03/06/18 05:44 03/06/18 05:44 Additional Labs: Accuchecks 03/10/18 03/09/18 03/09/18 04:06 20:10 16:13 POC Glucose 157 H 209 H 245 H Phys Exam - Physical Examination HEENT: PERRLA, moist MMs Neck: no JVD, supple Respiratory: no wheezing, no rales Cardiovascular: RRR, no significant murmur Gastrointestinal: soft, non-tender, positive bowel sounds Musculoskeletal: no edema, pulses present Neurological: non-focal, moves all 4 limbs Psychiatric: normal affect, A&O x 3 Dx/Plan (1) Catheter-associated urinary tract infection Code(s): T83.511A - I/I REACT D/T INDWELLING URETHRAL CATHETER, INIT; N39.0 - URINARY TRACT INFECTION, SITE NOT SPECIFIED Status: Acute Qualifiers: Indwelling urinary catheter type: cystostomy catheter Encounter type: subsequent encounter Qualified Code(s): T83.510D - Infection and inflammatory reaction due to cystostomy catheter, subsequent encounter; N39.0 - Urinary tract infection, site not specified; N39.0 - Urinary tract infection, site not specified Comment: suprapubic catheter, infection and sepsis present on admission (2) DM2 (diabetes mellitus, type 2) Status: Chronic Qualifiers: Diabetes mellitus geoscience laboratory technician insulin use: with geoscience laboratory technician use Diabetes mellitus complication status: without complication Qualified Code(s): E11.9 - Type 2 diabetes mellitus without complications; Z79.4 - auto refinisher (current) use of insulin; Z79.4 - nursing home (current) use of insulin; Z79.4 - auto refinisher ( current) use of insulin; Z79.4 - auto refinisher (current) use of insulin (3) History of colon cancer Code(s): Z85.038 - PERSONAL HISTORY OF MALIGNANT NEOPLASM OF LARGE INTESTINE Status: Chronic (4) Sepsis Code(s): A41.9 - SEPSIS, UNSPECIFIED ORGANISM Status: Acute (5) Anemia, chronic disease Code(s): D63.8 - ANEMIA IN OTHER CHRONIC DISEASES CLASSIFIED ELSEWHERE Status : Chronic (6) Chronic kidney disease (CKD) Code(s): N18.9 - CHRONIC KIDNEY DISEASE, UNSPECIFIED Status: Chronic Qualifiers: Chronic kidney disease stage: stage 3 (moderate) Qualified Code(s): N18.3 - Chronic kidney disease, stage 3 (moderate) (7) Hypertension Code(s): I10 - ESSENTIAL (PRIMARY) HYPERTENSION Status: Chronic Qualifiers: Hypertension type: essential hypertension Qualified Code(s): I10 - Essential (primary) hypertension (8) Chronic anemia Code(s): D64.9 - ANEMIA, UNSPECIFIED Status: Chronic (9) Moderate protein malnutrition Code(s): E44.0 - MODERATE PROTEIN-CALORIE MALNUTRITION Status: Chronic - Plan hemostable -: keflex and cipro for 5 days -: dc pt home with ([facility]) -: has amb 100ft with rw -: d/w daughter * .
--- NOTE | 2018-03-10 17:48 | DIS ---
DATE OF ADMISSION: 03/03/2018 DATE OF DISCHARGE: 03/10/2018 DISCHARGE DISPOSITION: To home with home health ([facility]). PRIMARY DISCHARGE DIAGNOSES: Suprapubic catheter-associated invasive urinary tract infection with se psis; diabetes mellitus, type 2. SECONDARY DISCHARGE DIAGNOSES: History of colon cancer with colostomy and prior surgery; moderate pr otein malnutrition; chronic anemia; hypertension; chronic kidney disease, stage 3. PROCEDURES DONE DURING HOSPITALIZATION: CT brain done without contrast showed no acute intracranial process. The patient has had chest x-ray done on 03/05/2018, which showed no acute process. He has a right-sided Port-A-Cath. Blood cultures grew 1/2 coag-negative Staph, likely contaminant. Urine c ulture grew polymicrobial rhett. He had a white count of 17 on the day of admission with discharge n umbers of 9.9, H and H on the day of discharge is 9 and 28, platelet count 216 with 71% neutrophils. Admitting BUN and creatinine were 33 and 2.8 and sodium of 126 on the day of admission, had albumin of 2.6. Discharge BUN and creatinine is 14 and 1.5. INPATIENT CONSULTS: Dr. Torres/Dr. Dolan for Pulmonology. DISCHARGE MEDICATIONS: Cipro 250 mg p.o. twice daily for another 5 days, Keflex 500 mg p.o. 3 times daily for another 5 days, Coreg 3.125 mg p.o. twice daily, calcitriol 0.25 mcg p.o. daily, atorvastat in 20 mg p.o. daily, aspirin 81 mg p.o. daily, albuterol inhaler q.6 hourly p.r.n., ferrous sulfate 3 25 mg p.o. twice daily, Nexium 40 mg p.o. daily, Levemir 10 units subcutaneously twice daily, Synthro id 150 mcg p.o. daily, losartan 25 mg daily, oxybutynin 10 mg daily, potassium chloride 8 mEq p.o. da jaspal, sertraline 50 mg p.o. at bedtime, Ultram 3 times daily p.r.n. ALLERGIES: ACETAMINOPHEN. DISCHARGE PLAN: Patient to follow up with primary care physician in 1 week. BRIEF COURSE DURING HOSPITALIZATION: Patient initially got admitted on the 2nd after he was brought to emergency room for severe nausea and vomiting. The patient was also hypotensive and had elevated white count of 17, with UA being positive for urinary tract infection. He was essentially admitted t o ICU for severe sepsis with septic shock and urinary tract infection with suprapubic catheter. He w as given a total of 4 liters of IV fluids along with pressors. Martinez cultures were obtained. He has h ad slow weaning of pressors and has done remarkably well. He was later downgraded to medical floor. His urine culture grew polymicrobial rhett. He was on IV antibiotics and has been switched over to Cipro and Keflex. Prior to discharge, he has ambulated nearly 100 feet with a rolling walker. He wa s suggested to go to rehabilitation or swing bed, but patient prefers to go home. He has home health with [facility]. Full updates were given to patient and his daughter at bedside. A total of 35 minutes was spent on discharge plan. Please see a [id number] documentation [facility]
== END 2018-03-10 09:25 | disposition home health service (06) | DRG 698 ==
LOC: ERS 10:41 → CCU 16:41 → T4-B 03-04 17:10
PROVIDERS: ADMIT Internal Medicine Infectious Disease; ATTEND Internal Medicine Infectious Disease
DX: T83.511A Infection and inflammatory reaction due to indwelling urethral catheter, initial encounter (principal); A41.9 Sepsis, unspecified organism; N17.9 Acute kidney failure, unspecified; N18.4 Chronic kidney disease, stage 4 (severe); E87.1 Hypo-osmolality and hyponatremia; E44.0 Moderate protein-calorie malnutrition; L03.311 Cellulitis of abdominal wall; N39.0 Urinary tract infection, site not specified; Y84.6 Urinary catheterization as the cause of abnormal reaction of the patient, or of later complication, without mention of misadventure at the time of the procedure; E11.22 Type 2 diabetes mellitus with diabetic chronic kidney disease; E78.5 Hyperlipidemia, unspecified; I12.9 Hypertensive chronic kidney disease with stage 1 through stage 4 chronic kidney disease, or unspecified chronic kidney disease; I25.10 Atherosclerotic heart disease of native coronary artery without angina pectoris; Z95.1 Presence of aortocoronary bypass graft; Z85.038 Personal history of other malignant neoplasm of large intestine; Z85.118 Personal history of other malignant neoplasm of bronchus and lung; Z79.899 Other long term (current) drug therapy; Z93.3 Colostomy status; Z79.82 Long term (current) use of aspirin; Z88.8 Allergy status to other drugs, medicaments and biological substances; E03.9 Hypothyroidism, unspecified; F32.9 Major depressive disorder, single episode, unspecified; R33.9 Retention of urine, unspecified; D64.9 Anemia, unspecified; Z87.891 Personal history of nicotine dependence
CPT/HCPCS: 36415; 36416; 36556; 51102; 70450; 71045; 74018; 80048; 80053; 81003; 81015; 83605; 83735; 83880; 85025; 87040; 87086; 87149; 93005; 96360; 96365; 96367; A4216; C1751; G8978-GP-CK; G8979-GP-CI; J0692; J0696; J0744; J2060; J2270; J2405; J3370; J7070; Q0162

== ENCOUNTER 2018-09-29 18:23 | Inpatient (IN) | payer MEDICARE, MEDICAID ==
[2018-09-29 19:14] LABS: Actual Bicarbonate (HCO3a) 22.3 mEq/L (22-28); Analyzer IN Cardio ER; Base Excess (BEa) -1.4 mEq/L (-2.0 to +3.0); Calcium, Ionized 1.14 mmol/L (1.12-1.30); Carboxyhemoglobin (COHb) 0.6 gm% (0.0-3.0); Hemoglobin (Hb) 12.5 g/dL (14.0-18.0); O2 Tension (PaO2) 96.2 mmHg (> 70.0); Potassium - ABG Lab 3.42 mmol/L (3.70-5.30); pH, Arterial 7.43 (7.35-7.45)
[2018-09-29 19:47] LABS: #Basophils 0.2 thou/uL (0.0-0.2); #Eosinphils 0.4 thou/uL (0.0-0.7); #Lymphocytes 2.6 thou/uL (1.20-3.40); #Monocytes 0.9 thou/uL (0.11-0.59); %Basophils 1.7 % (0.0-1.0); %Eosinophils 3.3 % (0.0-10.0); %Lymphocytes 23.5 % (21.0-51.0); %Neutrophils 63.5 % (42.0-75.0); Hemoglobin 12.5 g/dL (14.0-18.0); Mean Corpuscular Hemoglobin 29.6 pg (27.0-31.0); Mean Corpuscular Volume 89.7 fL (78.0-98.0); Mean Platelet Volume 7.3 fL (7.4-10.4); Platelet Count 330 thou/uL (130-400); RBC Distribution Width 13.6 % (11.5-14.5); Red Blood Cell (RBC) Count 4.21 mill/uL (4.70-6.10)
--- NOTE | 2018-09-29 20:00 | RAD ---
PORTABLE CHEST: 09/29/18 HISTORY: Respiratory distress. Generalized weakness. COMPARISON: 03/03/18 study. Right sided Mediport catheter is in place. The opacification of the left hemithorax is stable. Postop sternotomy changes are seen. No definite acute process. IMPRESSION: Stable exam. POS: [facility]
[2018-09-29 20:07] LABS: Bilirubin Negative (Negative); Blood, Urine Large (Negative); Clarity TURBID (Clear); Glucose, Urine (Dipstick) Negative (Negative); Leukocyte Large (Negative); Nitrite Positive (Negative); Protein, Urine (Dipstick) 300 mg/dL (Neg-Trace); Specific Gravity, Urine 1.013 (1.002-1.036); Urobilinogen 0.2 mg/dL (0.2-1.0)
[2018-09-29 20:12] LABS: Yeast-AUWi Flag 2997.7 (0-25.0)
[2018-09-29 20:13] LABS: CKMB 2.2 ng/mL (0-6.6); Troponin I 0.032 ng/mL (< 0.028)
[2018-09-29 20:16] LABS: ALT (SGPT) Less than 7 U/L (8-55); AST (SGOT) 14 U/L (5-34); Albumin 2.4 g/dL (3.4-4.8); Alkaline Phosphatase 100 U/L (40-150); Anion Gap 11 mmol/L (10-20); BUN (Urea Nitrogen) 15 mg/dL (8.4-25.7); Bilirubin, Total 0.3 mg/dL (0.2-1.2); CK (CPK) 27 U/L (30-200); Calc. Creatinine Clearance 0 mL/min (70-130); Calcium 8.3 mg/dL (7.8-10.44); Carbon Dioxide 25 mmol/L (23-31); Chloride 105 mmol/L (98-107); Estimated GFR-MDRD 30; Globulin 5.4 g/dL (2.4-3.5); Glucose 63 mg/dL (83-110); Lipase Less than 4 U/L (8-78); Potassium 4.2 mmol/L (3.5-5.1); Protein, Total 7.8 g/dL (5.8-8.1); Sodium 137 mmol/L (136-145)
[2018-09-29 20:17] LABS: RBC/HPF 21-50 HPF (0-3)
[2018-09-29 20:19] LABS: Bacteria/HPF 3+ HPF (None Seen); Hyaline Casts/LPF NONE SEEN LPF (0-3 Hyaline); Other Casts/LPF None Seen LPF (0-3 Hyaline); Yeast-All Forms None Seen HPF (None Seen)
[2018-09-29] MEDS ORDERED: MEROPENEM 1 GM/50 ML 1 GM in Premix Bag 1 BAG IVPB SCH (20:45)
[2018-09-29] MEDS ORDERED: Senokot S 8.6-50 MG TAB PO PRN (23:20)
[2018-09-29] MEDS ORDERED: Ondansetron ODT 4 MG TAB PO PRN (23:20)
[2018-09-29] MEDS ORDERED: Ondansetron PF 4 MG/2 ML Vial IVP PRN ×2 (23:20→23:25)
[2018-09-29] MEDS ORDERED: Bisacodyl 5 MG TAB PO PRN (23:20)
[2018-09-29] MEDS ORDERED: Ondansetron ODT 4 MG TAB SL PRN (23:25)
[2018-09-29] MEDS ORDERED: Sodium Chloride 0.9% 1,000 ML IV SCH (23:25)
[2018-09-29 23:36] VITALS: BMI 27.3
[2018-09-29] MEDS ORDERED: Dextrose 50% Abboject 50 ML SYRINGE SLOW IVP PRN (23:42)
[2018-09-29] MEDS ORDERED: HumaLOG 300 UNITS/3 ML VIAL SC PRN ×2 (23:42)
[2018-09-29] MEDS ORDERED: Dextrose 5% in Water 1,000 ML IV PRN (23:42)
[2018-09-29 23:49] LABS: Lactic Acid 2.5 mmol/L (0.5-2.2)
[2018-09-29] MEDS: traMADol HCl 50 MG TAB PO PRN (23:52)
[2018-09-29] MEDS: Sodium Chloride 0.9% 1,000 ML IV SCH (23:53)
[2018-09-30 05:46] LABS: #Eosinphils 0.4 thou/uL (0.0-0.7); #Lymphocytes 2.9 thou/uL (1.20-3.40); #Monocytes 0.7 thou/uL (0.11-0.59); #Neutrophils 6.3 thou/uL (1.40-6.50); %Basophils 0.1 % (0.0-1.0); %Eosinophils 3.5 % (0.0-10.0); %Monocytes 6.4 % (0.0-10.0); Hemoglobin 10.9 g/dL (14.0-18.0); Mean Corpuscular HGB CONC 32.5 g/dL (32.0-36.0); Mean Corpuscular Volume 89.2 fL (78.0-98.0); Platelet Count 287 thou/uL (130-400); RBC Distribution Width 13.5 % (11.5-14.5); Red Blood Cell (RBC) Count 3.77 mill/uL (4.70-6.10); White Blood Cell (WBC) Count 10.2 thou/uL (4.8-10.8)
[2018-09-30 05:48] LABS: Anion Gap 10 mmol/L (10-20); BUN (Urea Nitrogen) 14 mg/dL (8.4-25.7); Calc. Creatinine Clearance 34 mL/min (70-130); Carbon Dioxide 23 mmol/L (23-31); Chloride 109 mmol/L (98-107); Estimated GFR-MDRD 34; Glucose 79 mg/dL (83-110); Potassium 3.7 mmol/L (3.5-5.1); Sodium 138 mmol/L (136-145)
[2018-09-30] MEDS ORDERED: Levothyroxine 150 MCG TAB PO SCH (06:00)
--- NOTE | 2018-09-30 06:14 | HP ---
CHIEF COMPLAINT: Generalized weakness. HISTORY OF PRESENT ILLNESS: This is a 78-year-old male with past medical history significant for recurrent UTIs, colon cancer, status post chemotherapy and radiation, diabetes mellitus type 2, hyperlipidemia, hypertension, lung CA status post radiation, bilateral kidney cysts, presenting with generalized weakness, which has been ongoing for 2 weeks prior to the day of admission. The patient states that he has been having shortness of breath, cough with exertion, and he has been feeling unwell for the past 2 weeks. The patient states that he has also been having some chills, nausea, and vomiting. The patient is not able to tolerate p.o. At this point, the patient endorses nausea, vomiting, chills, cough, shortness of breath with exertion, otherwise denies any fever, dizziness, headaches, chest pain, palpitations, abdominal pain, diarrhea, constipation, hematuria, dysuria, hematochezia, melena. REVIEW OF SYSTEMS: Positive for generalized weakness, nausea, vomiting, chills, shortness of breath, otherwise as documented in the HPI. All other systems are reviewed and are negative. PAST MEDICAL HISTORY: Colon CA status post chemoradiation, diabetes mellitus type 2, hyperlipidemia, hypertension, lung CA. FAMILY HISTORY: Reviewed and noncontributory to this visit. PAST SURGICAL HISTORY: The patient had suprapubic catheterization placed last in 2015; coronary artery bypass graft surgery with 4 vessels; colostomy; cataracts, bilateral eyes. PSYCH HISTORY: No previous psych history. SOCIAL HISTORY: The patient denies alcohol use, denies illicit drug use, and denies any smoking history. ALLERGIES: THE PATIENT IS ALLERGIC TO TYLENOL, UNCONFIRMED. CURRENT MEDICATIONS: 1. Oxybutynin 10 mg. 2. Sertraline 50 mg. 3. Atorvastatin 20 mg. 4. Carvedilol 3.125 mg. 5. Potassium chloride 8 mEq. 6. ProAir. 7. Losartan 25 mg. 8. Glipizide 10 mg. 9. Calcitriol 0.25 mcg. 10. Aspirin 81 mg. 11. Levothyroxine 150 mcg. 12. Nexium 40 mg. 13. DuoNeb treatments. 14. Levemir 25 units subcu. 15. Tramadol 50 mg. 16. Zofran. PHYSICAL EXAMINATION: VITAL SIGNS: The patient's blood pressure is 126/72, pulse of 66, respiratory rate of 23, temperature of 97.5, oxygen saturation 100% on room air. GENERAL: The patient appears pale, lying in bed, does not appear to be in any acute distress. HEENT: Normocephalic and atraumatic. Pupils are equal, round, and reactive to light. Extraocular movements are intact. No scleral icterus. No conjunctival pallor. Mucous membranes are dry. NECK: Trachea is midline. No meningeal signs. Full range of motion. Supple. RESPIRATORY: Lungs are clear to auscultation bilaterally. No wheezing, no rales, no rhonchi appreciated. CARDIAC: Positive S1 and S2. Regular rate and rhythm. No murmurs, no gallops , no rubs appreciated. ABDOMEN: Soft, nontender, and nondistended. Positive bowel sounds in all quadrants. No peritoneal signs. No palpable masses appreciated. Suprapubic catheter noted EXTREMITIES: The patient has 5/5 upper extremity strength and 5/5 lower extremity strength. Good pulses bilaterally in the upper and lower extremities. No edema noted. NEUROLOGIC: Cranial nerves 2 through 12 grossly intact. No neurologic deficits. SKIN: Warm, dry, and intact. IMAGING DATA: EKG shows sinus rhythm with a rate of 77 with some premature supraventricular complexes. Chest x-ray, negative. ED COURSE: The patient received Levaquin and normal saline. LABORATORY DATA: WBC is 11.0, hemoglobin is 12.5, hematocrit is 37.7, RDW is 13.6, platelet count is 230. ABG; pH is 7.43, pCO2 is 34.0, pO2 is 96.2. Sodium is 137, potassium is 4.2, chloride is 105, carbon dioxide is 25, anion gap of 11, BUN is 15, creatinine is 2.16, GFR is 30, glucose is 63, lactic acid of 2.6, AST is 14, ALT is less than 7, alk phos is 100, creatine kinase is 27, troponin is 0.032. BNP 297.2. Lipase is less than 4. Urinalysis is positive for nitrites, large leuko esterases, squamous epithelial cells are between 11 to 20. ASSESSMENT AND PLAN: This is a 78-year-old male with multiple comorbidities, being admitted for: 1. Generalized weakness, likely due to urinary tract infection. At this point, the patient has been started on antibiotics. We will continue the patient on antibiotics. We will continue on IV hydration. 2. Cough and shortness of breath, likely due to bronchitis. At this point, the patient has been started on Levaquin. We will continue Levaquin. We will continue to treat the patient and we will monitor the patient very closely. 3. Hypertension. We will monitor the patient's blood pressure closely and we will continue the patient on current management. 4. Hypothyroidism. We will continue the patient on his home dose of levothyroxine. 5. Diabetes mellitus type 2. We will continue the patient on insulin sliding scale and we will start the patient on oral diabetes medication when the patient is being discharged. 6. Hyperlipidemia. We will continue the patient on his current home medications. 7. Coronary artery disease, status post coronary artery bypass graft. We will continue the patient on his home cardiac medications. We will continue to monitor the patient closely. 8. Deep venous thrombosis and gastrointestinal prophylaxis. Job ID: [id number] MTDD
[2018-09-30] MEDS ORDERED: Non-Formulary Item 1 EACH (Levemir Flexpen [Levemir Flexpen] 10 UNITS) SQ SCH (08:00)
[2018-09-30] MEDS ORDERED: Non-Formulary Item 1 EACH (Esomeprazole Magnesium [Nexium] 40 MG) PO SCH (08:00)
[2018-09-30] MEDS: Ferrous Sulfate 325 MG TAB PO SCH ×3 (08:21→21:30)
[2018-09-30] MEDS: Insulin Glargine 10 UNITS in Pre-Filled Syringe 1 EACH SC SCH ×2 (08:21→16:28)
[2018-09-30] MEDS: traMADol HCl 50 MG TAB PO PRN ×3 (08:22→21:22)
[2018-09-30] MEDS: Carvedilol 3.125 MG TAB PO SCH ×2 (08:23→21:30)
[2018-09-30] MEDS: Heparin 5,000 UNITS/ML VIAL SC SCH ×3 (08:24→21:29)
[2018-09-30] MEDS ORDERED: Famotidine/PF 20 mg/2ml Vial SLOW IVP SCH (09:00)
[2018-09-30] MEDS ORDERED: Famotidine 20 MG TAB PO SCH (09:00)
[2018-09-30] MEDS ORDERED: Atorvastatin Calcium 40 MG TAB PO SCH (09:00)
[2018-09-30] MEDS ORDERED: Oxybutynin 5 MG TAB PO SCH (09:00)
[2018-09-30] MEDS ORDERED: Aspirin 81 mg Enteric Coated Tablet PO SCH (09:00)
[2018-09-30] MEDS: Sodium Chloride 0.9% 1,000 ML IV SCH ×2 (11:35→21:29)
--- NOTE | 2018-09-30 13:36 | PDOC.PN ---
- Subjective Encounter Start Date: 09/30/18 Encounter Start Time: 13:35 Mr. Tipton was seen today in follow-up of UTI with sepsis. He says he still feels weak, but a little better than yesterday. He also feels the supra- pubic catheter " needs to be replaced". - Objective Resuscitation Status - Order Detail: 09/29/18 23:20 Resuscitation Status Routine Resuscitation Status: FULL: Full Resuscitation MAR Reviewed: Yes Vital Signs & Weight: Vital Signs (12 hours) Temp Pulse Resp BP BP Pulse Ox 09/30/18 10:58 98.0 F 81 18 116/67 100 09/30/18 10:55 84 18 95 09/30/18 08:21 99 09/30/18 07:27 98.5 F 96 16 108/63 99 09/30/18 06:56 78 16 98 09/30/18 04:16 97.6 F 78 18 150/81 H 96 Weight Weight 164 lb 8 oz I&O: 09/29/18 09/30/18 10/01/18 06:59 06:59 06:59 Intake Total 935 350 Output Total 775 200 Balance 160 150 Result Diagrams: 09/30/18 05:24 09/30/18 05:24 Additional Labs: Accuchecks 09/30/18 09/30/18 09/29/18 11:02 05:51 23:56 POC Glucose 164 H 72 111 H Phys Exam - Physical Examination HEENT: PERRLA Respiratory: no rales, wheezing present + occasional wheezing and rhonchi Cardiovascular: RRR, no significant murmur, no rub Gastrointestinal: soft, non-tender, no distention, positive bowel sounds Musculoskeletal: no edema Dx/Plan (1) Sepsis Code(s): A41.9 - SEPSIS, UNSPECIFIED ORGANISM Status: Acute (2) Catheter-associated urinary tract infection Code(s): T83.511A - I/I REACT D/T INDWELLING URETHRAL CATHETER, INIT; N39.0 - URINARY TRACT INFECTION, SITE NOT SPECIFIED Status: Acute Qualifiers: Indwelling urinary catheter type: cystostomy catheter Encounter type: initial encounter Qualified Code(s): T83.510A - Infection and inflammatory reaction due to cystostomy catheter, initial encounter; N39.0 - Urinary tract infection, site not specified Comment: suprapubic catheter, infection and sepsis present on admission (3) Colon cancer Code(s): C18.9 - MALIGNANT NEOPLASM OF COLON, UNSPECIFIED Status: Chronic Comment: Shayan. (4) DM2 (diabetes mellitus, type 2) Status: Chronic Qualifiers: Diabetes mellitus usp insulin use: with rodent exterminator use Diabetes mellitus complication status: without complication Qualified Code(s): E11.9 - Type 2 diabetes mellitus without complications; Z79.4 - long-term (current) use of insulin; Z79.4 - long-term (current) use of insulin; Z79.4 - rodent exterminator ( current) use of insulin; Z79.4 - long-term (current) use of insulin (5) Hypertension Code(s): I10 - ESSENTIAL (PRIMARY) HYPERTENSION Status: Chronic Qualifiers: Hypertension type: essential hypertension Qualified Code(s): I10 - Essential (primary) hypertension (6) Chronic kidney disease, stage 3 Code(s): N18.3 - CHRONIC KIDNEY DISEASE, STAGE 3 (MODERATE) Status: Acute - Plan * UTI with sepsis- continue Levaquin IV pending culture results * Will repeat his lactic acid level * HTN- blood pressure is stable * DM- blood glucose is within an acceptable range * CKD stage 3- stable
[2018-09-30] MEDS ORDERED: Ondansetron PF 4 MG/2 ML Vial IVP PRN (21:03)
[2018-09-30] MEDS ORDERED: Ondansetron ODT 4 MG TAB PO PRN (21:03)
[2018-09-30] MEDS ORDERED: Senokot S 8.6-50 MG TAB PO PRN (21:03)
[2018-09-30] MEDS ORDERED: Bisacodyl 5 MG TAB PO PRN (21:03)
[2018-09-30] MEDS ORDERED: Dextrose 5% in Water 1,000 ML IV PRN (21:04)
[2018-09-30] MEDS ORDERED: Dextrose 50% Abboject 50 ML SYRINGE SLOW IVP PRN (21:04)
[2018-09-30] MEDS ORDERED: HumaLOG 300 UNITS/3 ML VIAL SC PRN ×2 (21:04→21:05)
--- NOTE | 2018-10-01 02:23 | CON ---
DATE OF CONSULTATION: 09/30/2018 REASON FOR CONSULTATION: Urosepsis with suprapubic tube. HISTORY OF PRESENT ILLNESS: Mr. Tipton is a 78-year-old male, who is well-known to me with a history of rectal cancer with permanent end colostomy and colovesical fistula, which has been deemed irrepairable. He has been managed with suprapubic tube, which is chronic. He currently has suprapubic tube changed by home health, which he states has been going well. We did not irrigate his bladder, but just changed his catheter and he just had his catheter changed yesterday. He stated he started having pain and feeling bad about 4 days ago, which progressively got worse to the point where he started feeling extremely ill. He then came into the emergency room having shortness of breath, cough, chills, nausea, and vomiting. He was diagnosed with likely urosepsis and has been started on IV antibiotics. I have been consulted due to the fact that he has a suprapubic catheter and to confirm that everything is working okay. PAST MEDICAL HISTORY: 1. Colon cancer, status post chemoradiation and multiple abdominal surgeries. 2. Colovesical fistula. 3. Diabetes mellitus type 2. 4. Hyperlipidemia. 5. Hypertension. 6. Lung cancer. PAST SURGICAL HISTORY: 1. SP tube placement. 2. CABG. 3. Colostomy. 4. Cataracts. 5. Bilateral eye surgeries. 6. Multiple abdominal surgeries. FAMILY HISTORY: Noncontributory. SOCIAL HISTORY: The patient denies alcohol use, illicit drug use, or smoking history. He lives at home with his family. REVIEW OF SYSTEMS: A 12-point review of systems was significant for weakness, nausea, vomiting, chills, shortness of breath, but no chest pain. These have all resolved at the current time and he is feeling better. Remainder of 12-point review of systems was reviewed and otherwise negative. ALLERGIES: TYLENOL, ALTHOUGH THIS IS UNCONFIRMED. CURRENT MEDICATIONS: 1. Oxybutynin. 2. Sertraline. 3. Atorvastatin. 4. Carvedilol. 5. Potassium chloride. 6. ProAir. 7. Losartan. 8. Glipizide. 9. Calcitriol. 10. Aspirin. 11. Levothyroxine. 12. Nexium. 13. DuoNeb. 14. Levemir. 15. Tramadol. 16. Zofran. PHYSICAL EXAMINATION: VITAL SIGNS: Temperature 98.4, pulse 72, respirations 16, blood pressure 110/70, and saturation 96% on room air. GENERAL: No apparent distress. Communicating and alert. CARDIOVASCULAR: Regular rate and rhythm. Normal S1 and S2. ABDOMEN: Soft, nontender, and nondistended. Positive bowel sounds. Colostomy in place with no stool currently in the bag. SP tube is in good location with purulent cloudy urine. GENITOURINARY: Penis is normal. No lesions. Scrotum demonstrates bilaterally descended testes, without edema. EXTREMITIES: No clubbing, cyanosis, or edema. LABORATORY DATA: On laboratory evaluation, full set of labs in the [facility], which I have reviewed. Of note, the patient's white count is 10.2 with a hemoglobin of 10.9. Creatinine is 1.94. Blood cultures are growing coag-negative staph in one culture only. ASSESSMENT AND PLAN: A 78-year-old male with colovesical fistula with history of urinary tract infections in the past with high likelihood of urinary tract infection currently. Full workup is being done by the Medicine Team to ensure that there are no other health problems. From my standpoint, his SP tube seems to be working well. It is very cloudy, so I have irrigated it today with approximately 200 mL of normal saline via Zeinab syringe on the SP tube, which was irrigated until clear. It seems to be in good position and working well. He is going to be SP tube dependent forever and I told him that due to the cloudiness, I would recommend that he start weekly SP tube irrigations with home health along with the continued q.30 day SP tube changes. I will set this up with home health for it to be done as an outpatient, but at the current time, his SP tube seems to be working fine. I do not think anything further that needs to be done on this admission other than antibiotics and continued medical care. I will sign off and please re-consult if there are any other concerns or questions. The patient has established followup with me as an outpatient already. Job ID: [id number]
[2018-10-01] MEDS: Sodium Chloride 0.9% 1,000 ML IV SCH ×2 (02:47→08:01)
[2018-10-01] MEDS: Levothyroxine 150 MCG TAB PO SCH (05:09)
[2018-10-01] MEDS: Insulin Glargine 10 UNITS in Pre-Filled Syringe 1 EACH SC SCH ×2 (07:57→16:11)
[2018-10-01] MEDS: Atorvastatin Calcium 40 MG TAB PO SCH (07:58)
[2018-10-01] MEDS: Aspirin 81 mg Enteric Coated Tablet PO SCH (07:59)
[2018-10-01] MEDS: Ferrous Sulfate 325 MG TAB PO SCH ×2 (07:59→20:47)
[2018-10-01] MEDS: Famotidine 20 MG TAB PO SCH (07:59)
[2018-10-01] MEDS: Carvedilol 3.125 MG TAB PO SCH ×2 (08:00→21:46)
[2018-10-01] MEDS: Oxybutynin 5 MG TAB PO SCH (08:00)
[2018-10-01] MEDS: Heparin 5,000 UNITS/ML VIAL SC SCH ×2 (08:00→20:47)
[2018-10-01 09:01] LABS: Anion Gap 6 mmol/L (10-20); BUN (Urea Nitrogen) 11 mg/dL (8.4-25.7); Calc. Creatinine Clearance 35 mL/min (70-130); Calcium 7.9 mg/dL (7.8-10.44); Carbon Dioxide 26 mmol/L (23-31); Chloride 107 mmol/L (98-107); Estimated GFR-MDRD 35; Glucose 139 mg/dL (83-110); Potassium 3.9 mmol/L (3.5-5.1); Sodium 135 mmol/L (136-145)
--- NOTE | 2018-10-01 09:40 | CON ---
DATE OF CONSULTATION: 09/30/2018 CONSULTING PHYSICIAN: Dr. Juarez REASON FOR CONSULT: Acute kidney injury on chronic kidney disease, reason for admission, and weakness. HISTORY OF PRESENT ILLNESS: A 78-year-old male with history of type 2 diabetes, colon cancer, hyperlipidemia, hypertension, who came to the hospital with weakness and Nephrology was consulted. The patient was having nausea, vomiting, and no fevers or chills reported to me. No chest pain or palpitations. PAST MEDICAL HISTORY: Positive for colon cancer, type 2 diabetes mellitus, hyperlipidemia, hypertension, lung cancer. PAST SURGICAL HISTORY Suprapubic catheter 2016, coronary artery bypass graft, colostomy, bilateral cataracts. HOME MEDICATIONS: 1. Oxybutynin. 2. Sertraline. 3. Atorvastatin. 4. Carvedilol. 5. Potassium. 6. ProAir. 7. Losartan. 8. Glipizide. 9. Calcitriol. 10. Aspirin. 11. Levothyroxine. 12. Nexium. 13. DuoNeb. 14. Levemir. 15. Tramadol. 16. Zofran. ALLERGIES: TYLENOL. SOCIAL HISTORY: No smoking or alcohol. FAMILY HISTORY Nothing significant PHYSICAL EXAMINATION: GENERAL: Well-developed male, in no apparent distress. VITAL SIGNS: Temperature 98.5, pulse 92, respirations 16, and blood pressure 108/63. HEENT: Atraumatic and normocephalic. Oral mucosa is moist. NECK: Supple. CARDIOVASCULAR: S1 and S2. Heart rate and rhythm are regular. RESPIRATORY: Clear. GASTROINTESTINAL: Abdomen is soft. MUSCULOSKELETAL: DERMATOLOGIC: . NEUROLOGIC: . LABORATORY DATA: Potassium 3.7, BUN is 14, creatinine is 1.9. ASSESSMENT AND PLAN: 1. Acute kidney injury on chronic kidney disease stage 3. 2. . 3. Hypertension, stable. 4. Anemia. Monitor hemoglobin. Renal function is better. Avoid nephrotoxins. IV fluids as tolerated. We will follow. Thank you for the consult. Job ID: [id number]
[2018-10-01] MEDS ORDERED: hydrOXYzine 25 MG TAB PO SCH (11:15)
--- NOTE | 2018-10-01 14:52 | PDOC.PN ---
- Subjective Encounter Start Date: 10/01/18 Encounter Start Time: 08:00 Pt seen for followup re: UTI. Denies chest pain or shortness of breath. c/o generalized weakness. - Objective Resuscitation Status - Order Detail: 09/29/18 23:20 Resuscitation Status Routine Resuscitation Status: FULL: Full Resuscitation MAR Reviewed: Yes Vital Signs & Weight: Vital Signs (12 hours) Temp Pulse Resp BP BP Pulse Ox 10/01/18 11:57 97.7 F 80 20 113/72 96 10/01/18 07:57 96 10/01/18 07:20 97.9 F 87 18 128/80 96 10/01/18 03:59 98.4 F 83 18 121/71 95 Weight Weight 164 lb 8 oz I&O: 09/30/18 10/01/18 10/02/18 06:59 06:59 06:59 Intake Total 935 2690 400 Output Total 775 2380 Balance 160 310 400 Result Diagrams: 09/30/18 05:24 10/01/18 08:22 Additional Labs: Accuchecks 10/01/18 10/01/18 09/30/18 12:01 05:38 20:48 POC Glucose 187 H 130 H 188 H 09/30/18 16:10 POC Glucose 97 Labs reviewed by me Phys Exam - Physical Examination Constitutional: NAD HEENT: moist MMs Neck: supple Respiratory: clear to auscultation bilateral Cardiovascular: RRR Gastrointestinal: soft Neurological: moves all 4 limbs Psychiatric: normal affect Dx/Plan (1) UTI (urinary tract infection) Status: Acute Comment: colonization vs infection, urine cultures not sent (2) Physical deconditioning Code(s): R53.81 - OTHER [facility] Status: Acute Comment: pt may need SNU (3) Chronic kidney disease, stage 3 Code(s): N18.3 - CHRONIC KIDNEY DISEASE, STAGE 3 (MODERATE) Status: Chronic Comment: stable (4) Hypertension Code(s): I10 - ESSENTIAL (PRIMARY) HYPERTENSION Status: Chronic Qualifiers: Hypertension type: essential hypertension Qualified Code(s): I10 - Essential (primary) hypertension Comment: controlled - Plan * . Review of Systems - Review of Systems Respiratory: negative: Cough, Shortness of Breath, SOB with Excertion, Pleuritic Pain, Wheezing Cardiovascular: negative: chest pain, palpitations, orthopnea, paroxysmal nocturnal dyspnea, edema, light headedness - Medications/Allergies Allergies/Adverse Reactions: Allergies Allergy/AdvReac Type Severity Reaction Status Date / Time acetaminophen [From Tylenol] Allergy Verified 05/29/17 02:09 Medications: Current Medications Albuterol/Ipratropium (Duoneb) 3 ml NEB Q4H PRN PRN Reason: SOB &/or Wheezing Aspirin (Ecotrin) 81 mg PO DAILY [facility] Last Admin: 10/01/18 07:59 Dose: 81 mg Atorvastatin Calcium (Lipitor) 20 mg PO DAILY [facility] Last Admin: 10/01/18 07:58 Dose: 20 mg Bisacodyl (Dulcolax) 10 mg PO DAILYPRN PRN PRN Reason: Constipation Carvedilol (Coreg) 3.125 mg PO BID [facility] Last Admin: 10/01/18 08:00 Dose: 3.125 mg Dextrose/Water (Dextrose 50%) 25 gm SLOW IVP PRN PRN PRN Reason: Hypoglycemia Famotidine (Pepcid) 20 mg PO DAILY [facility] Last Admin: 10/01/18 07:59 Dose: 20 mg Ferrous Sulfate (Feosol) 325 mg PO BID [facility] Last Admin: 10/01/18 07:59 Dose: 325 mg Glucagon (Glucagon) 1 mg IM PRN PRN PRN Reason: Hypoglycemia Heparin Sodium (Porcine) (Heparin) 5,000 units SC BID [facility] Last Admin: 10/01/18 08:00 Dose: 5,000 units Insulin Glargine 10 units/ (Miscellaneous Medication) 0.1 mls @ 0 mls/hr SC BID [facility] Last Admin: 10/01/18 07:57 Dose: 0.1 mls Sodium Chloride (Normal Saline 0.9%) 1,000 mls @ 65 mls/hr IV .[id number] [facility] Last Admin: 10/01/18 08:01 Dose: 1,000 mls Dextrose/Water (D5w) 1,000 mls @ 0 mls/hr IV .Q0M PRN PRN Reason: Hypoglycemia Levofloxacin 750 mg/ Device 150 mls @ 100 mls/hr IVPB Q48H [facility] Insulin Human Lispro (Humalog) 0 units SC .MILD SLIDING SCALE PRN PRN Reason: Mild Correctional Scale Last Admin: 10/01/18 13:08 Dose: 2 unit Insulin Human Lispro (Humalog) 0 units SC .BEDTIME SLIDING SC PRN PRN Reason: Bedtime Correctional Scale Levothyroxine Sodium (Synthroid) 150 mcg PO 0600 [facility] Last Admin: 10/01/18 05:09 Dose: 150 mcg Ondansetron HCl (Zofran Odt) 4 mg PO Q6H PRN PRN Reason: Nausea/Vomiting Last Admin: 10/01/18 01:46 Dose: 4 mg Ondansetron HCl (Zofran) 4 mg IVP Q6H PRN PRN Reason: Nausea/Vomiting Last Admin: 10/01/18 08:02 Dose: 4 mg Oxybutynin Chloride (Ditropan) 10 mg PO DAILY [facility] Last Admin: 10/01/18 08:00 Dose: 10 mg Pantoprazole Sodium (Protonix) 40 mg PO DAILY [facility] Last Admin: 10/01/18 07:59 Dose: 40 mg Senna/Docusate Sodium (Senokot S) 2 tab PO BIDPRN PRN PRN Reason: Constipation Sertraline HCl (Zoloft) 50 mg PO HS [facility] Last Admin: 09/30/18 21:23 Dose: 50 mg Sodium Chloride (Flush - Normal Saline) 10 ml IVF Q12HR [facility] Last Admin: 10/01/18 08:01 Dose: 10 ml Sodium Chloride (Flush - Normal Saline) 10 ml IVF PRN PRN PRN Reason: Saline Flush Tramadol HCl (Ultram) 50 mg PO TIDPRN PRN PRN Reason: Pain Last Admin: 09/30/18 21:22 Dose: 50 mg
--- NOTE | 2018-10-01 16:02 | PRG ---
DATE OF SERVICE: 10/01/2018 SUBJECTIVE: Patient was seen and examined at bedside and overnight events noted. Patient denies any shortness of breath or chest pain or palpitation. No history of nausea or vomiting or diarrhea or fever or chills or cramps. OBJECTIVE: GENERAL: This is a well-built male, in no apparent distress. VITAL SIGNS: Temperature 97. Heart rate 80. Respiratory rate . Blood pressure 113/70. HEENT: Atraumatic, normocephalic. Oral mucosa is moist NECK: Supple. CARDIOVASCULAR: S1, S2 heard. Rate and rhythm regular. RESPIRATORY: Clear to auscultation. GASTROINTESTINAL: Abdomen is soft. MUSCULOSKELETAL: No tenderness. No edema. DERMATOLOGIC: No skin rash. NEUROLOGIC: Alert and awake and oriented X3. No focal neurologic deficits. Moving all the extremities. PSYCHIATRIC: Mood and affect normal. LABORATORY DATA: Potassium is 3.9, BUN is 11, creatinine 1.8. ASSESSMENT AND PLAN: 1. Acute kidney injury on chronic kidney disease stage 3, stable. 2. Hypertension, stable. 3. Edema. 4. Anemia, stable. Plan is to continue to monitor. Avoid nephrotoxins. Job ID: [id number]
[2018-10-01] MEDS: traMADol HCl 50 MG TAB PO PRN (20:50)
[2018-10-02] MEDS: Sodium Chloride 0.9% 1,000 ML IV SCH ×2 (05:08→17:11)
[2018-10-02] MEDS: Levothyroxine 150 MCG TAB PO SCH (05:08)
[2018-10-02] MEDS: traMADol HCl 50 MG TAB PO PRN ×2 (08:39→18:36)
[2018-10-02] MEDS: Ferrous Sulfate 325 MG TAB PO SCH ×2 (08:40→21:35)
[2018-10-02] MEDS: Famotidine 20 MG TAB PO SCH (08:40)
[2018-10-02] MEDS: Atorvastatin Calcium 40 MG TAB PO SCH (08:40)
[2018-10-02] MEDS: Aspirin 81 mg Enteric Coated Tablet PO SCH (08:40)
[2018-10-02] MEDS: Heparin 5,000 UNITS/ML VIAL SC SCH ×2 (08:42→21:35)
[2018-10-02] MEDS: Oxybutynin 5 MG TAB PO SCH (08:42)
[2018-10-02] MEDS: Insulin Glargine 10 UNITS in Pre-Filled Syringe 1 EACH SC SCH ×2 (08:42→16:59)
[2018-10-02] MEDS: Carvedilol 3.125 MG TAB PO SCH ×2 (08:42→21:35)
--- NOTE | 2018-10-02 12:51 | PDOC.PN ---
- Subjective Encounter Start Date: 10/02/18 Encounter Start Time: 08:00 Pt seen for followup re: UTI. Denies any complaints. - Objective Resuscitation Status - Order Detail: 09/29/18 23:20 Resuscitation Status Routine Resuscitation Status: FULL: Full Resuscitation Vital Signs & Weight: Vital Signs (12 hours) Temp Pulse Resp BP Pulse Ox 10/02/18 12:00 98.3 F 85 16 131/60 93 L 10/02/18 08:21 98.2 F 69 16 117/72 98 10/02/18 04:00 98.8 F 65 16 97/57 L 96 Weight Weight 164 lb 8 oz I&O: 10/01/18 10/02/18 10/03/18 06:59 06:59 06:59 Intake Total 2690 2880 Output Total 2380 2150 Balance 310 730 Result Diagrams: 09/30/18 05:24 10/01/18 08:22 Additional Labs: Accuchecks 10/02/18 10/02/18 10/01/18 10:35 05:07 21:08 POC Glucose 113 H 79 128 H 10/01/18 15:59 POC Glucose 83 Phys Exam - Physical Examination Constitutional: NAD HEENT: moist MMs Neck: supple Respiratory: no wheezing Cardiovascular: RRR Gastrointestinal: soft suprapubic catheter Neurological: moves all 4 limbs Psychiatric: normal affect Dx/Plan (1) UTI (urinary tract infection) Status: Acute Comment: urine culture growing gram negative nishant, continue levofloxacin (2) Physical deconditioning Code(s): R53.81 - OTHER [facility] Status: Acute Comment: pt likely to go to SNU (3) Chronic kidney disease, stage 3 Code(s): N18.3 - CHRONIC KIDNEY DISEASE, STAGE 3 (MODERATE) Status: Chronic Comment: stable (4) Hypertension Code(s): I10 - ESSENTIAL (PRIMARY) HYPERTENSION Status: Chronic Qualifiers: Hypertension type: essential hypertension Qualified Code(s): I10 - Essential (primary) hypertension Comment: controlled - Plan * . Review of Systems - Review of Systems Cardiovascular: negative: chest pain, palpitations, orthopnea, paroxysmal nocturnal dyspnea, edema, light headedness Gastrointestinal: negative: Nausea, Vomiting, Abdominal Pain, Diarrhea, Constipation, Melena, Hematochezia - Medications/Allergies Allergies/Adverse Reactions: Allergies Allergy/AdvReac Type Severity Reaction Status Date / Time acetaminophen [From Tylenol] Allergy Verified 05/29/17 02:09 Medications: Current Medications Albuterol/Ipratropium (Duoneb) 3 ml NEB Q4H PRN PRN Reason: SOB &/or Wheezing Aspirin (Ecotrin) 81 mg PO DAILY [facility] Last Admin: 10/02/18 08:40 Dose: 81 mg Atorvastatin Calcium (Lipitor) 20 mg PO DAILY [facility] Last Admin: 10/02/18 08:40 Dose: 20 mg Bisacodyl (Dulcolax) 10 mg PO DAILYPRN PRN PRN Reason: Constipation Carvedilol (Coreg) 3.125 mg PO BID [facility] Last Admin: 10/02/18 08:42 Dose: 3.125 mg Dextrose/Water (Dextrose 50%) 25 gm SLOW IVP PRN PRN PRN Reason: Hypoglycemia Famotidine (Pepcid) 20 mg PO DAILY [facility] Last Admin: 10/02/18 08:40 Dose: 20 mg Ferrous Sulfate (Feosol) 325 mg PO BID [facility] Last Admin: 10/02/18 08:40 Dose: 325 mg Glucagon (Glucagon) 1 mg IM PRN PRN PRN Reason: Hypoglycemia Heparin Sodium (Porcine) (Heparin) 5,000 units SC BID [facility] Last Admin: 10/02/18 08:42 Dose: 5,000 units Insulin Glargine 10 units/ (Miscellaneous Medication) 0.1 mls @ 0 mls/hr SC BID [facility] Last Admin: 10/02/18 08:42 Dose: Not Given Sodium Chloride (Normal Saline 0.9%) 1,000 mls @ 65 mls/hr IV .[id number] [facility] Last Admin: 10/02/18 05:08 Dose: 1,000 mls Dextrose/Water (D5w) 1,000 mls @ 0 mls/hr IV .Q0M PRN PRN Reason: Hypoglycemia Levofloxacin 750 mg/ Device 150 mls @ 100 mls/hr IVPB Q48H [facility] Last Admin: 10/01/18 20:46 Dose: 150 mls Insulin Human Lispro (Humalog) 0 units SC .MILD SLIDING SCALE PRN PRN Reason: Mild Correctional Scale Last Admin: 10/01/18 13:08 Dose: 2 unit Insulin Human Lispro (Humalog) 0 units SC .BEDTIME SLIDING SC PRN PRN Reason: Bedtime Correctional Scale Levothyroxine Sodium (Synthroid) 150 mcg PO 0600 [facility] Last Admin: 10/02/18 05:08 Dose: 150 mcg Ondansetron HCl (Zofran Odt) 4 mg PO Q6H PRN PRN Reason: Nausea/Vomiting Last Admin: 10/01/18 01:46 Dose: 4 mg Ondansetron HCl (Zofran) 4 mg IVP Q6H PRN PRN Reason: Nausea/Vomiting Last Admin: 10/01/18 08:02 Dose: 4 mg Oxybutynin Chloride (Ditropan) 10 mg PO DAILY [facility] Last Admin: 10/02/18 08:42 Dose: 10 mg Pantoprazole Sodium (Protonix) 40 mg PO DAILY [facility] Last Admin: 10/02/18 08:41 Dose: 40 mg Senna/Docusate Sodium (Senokot S) 2 tab PO BIDPRN PRN PRN Reason: Constipation Sertraline HCl (Zoloft) 50 mg PO HS [facility] Last Admin: 10/01/18 20:47 Dose: 50 mg Sodium Chloride (Flush - Normal Saline) 10 ml IVF Q12HR [facility] Last Admin: 10/02/18 08:42 Dose: Not Given Sodium Chloride (Flush - Normal Saline) 10 ml IVF PRN PRN PRN Reason: Saline Flush Tramadol HCl (Ultram) 50 mg PO TIDPRN PRN PRN Reason: Pain Last Admin: 10/02/18 08:39 Dose: 50 mg
--- NOTE | 2018-10-02 20:20 | EKG ---
Test Reason : Blood Pressure : / mmHG Vent. Rate : 077 BPM Atrial Rate : 077 BPM P-R Int : 174 ms QRS Dur : 084 ms QT Int : 430 ms P-R-T Axes : 107 019 114 degrees QTc Int : 486 ms Sinus rhythm with Premature supraventricular complexes Inferior infarct , age undetermined Abnormal ECG Confirmed by SVITLANA DELGADO, MARIUM ([id number]), video tape editor ROSA HELLER ([id number]) on 10/02/2018 8:20:09 PM Referred By: Confirmed By:MARIUM SHANE MD
--- NOTE | 2018-10-02 21:06 | PRG ---
DATE OF SERVICE: 10/02/2018 SUBJECTIVE: Patient was seen and examined at bedside and overnight events noted. Patient denies any shortness of breath or chest pain or palpitation. No history of nausea or vomiting or diarrhea or fever or chills or cramps. OBJECTIVE: GENERAL: This is a well-built male, in no apparent distress. VITAL SIGNS: Temperature 98.4, pulse 71, respirations blood pressure 113/71. HEENT: Atraumatic, normocephalic. Oral mucosa is moist NECK: Supple. CARDIOVASCULAR: S1, S2 heard. Rate and rhythm regular. RESPIRATORY: Clear to auscultation. GASTROINTESTINAL: Abdomen is soft. MUSCULOSKELETAL: No tenderness. No edema. DERMATOLOGIC: No skin rash. NEUROLOGIC: Alert and awake and oriented X3. No focal neurologic deficits. Moving all the extremities. PSYCHIATRIC: Mood and affect normal. LABORATORY DATA: Not done today. ASSESSMENT AND PLAN: 1. Acute kidney injury on chronic kidney disease, stage 3. Monitor labs. 2. . 3. Edema. 4. Anemia. We will monitor labs. Job ID: [id number]
[2018-10-03] MEDS: Sodium Chloride 0.9% 1,000 ML IV SCH ×2 (02:32→18:01)
[2018-10-03] MEDS: traMADol HCl 50 MG TAB PO PRN ×3 (02:46→17:58)
[2018-10-03] MEDS: Levothyroxine 150 MCG TAB PO SCH (05:04)
[2018-10-03] MEDS: Insulin Glargine 10 UNITS in Pre-Filled Syringe 1 EACH SC SCH ×2 (08:17→17:57)
[2018-10-03] MEDS: Atorvastatin Calcium 40 MG TAB PO SCH (08:20)
[2018-10-03] MEDS: Aspirin 81 mg Enteric Coated Tablet PO SCH (08:20)
[2018-10-03] MEDS: Oxybutynin 5 MG TAB PO SCH (08:20)
[2018-10-03] MEDS: Heparin 5,000 UNITS/ML VIAL SC SCH ×2 (08:21→21:06)
[2018-10-03] MEDS: Ferrous Sulfate 325 MG TAB PO SCH ×2 (08:21→21:07)
[2018-10-03] MEDS: Carvedilol 3.125 MG TAB PO SCH ×2 (08:21→21:06)
[2018-10-03] MEDS: Famotidine 20 MG TAB PO SCH (08:21)
--- NOTE | 2018-10-03 12:41 | PDOC.PN ---
- Subjective Encounter Start Date: 10/03/18 Encounter Start Time: 07:40 Pt seen for followup re: UTI. No complaints today. - Objective Resuscitation Status - Order Detail: 09/29/18 23:20 Resuscitation Status Routine Resuscitation Status: FULL: Full Resuscitation Vital Signs & Weight: Vital Signs (12 hours) Temp Pulse Resp BP Pulse Ox 10/03/18 11:02 97.9 F 73 22 H 87/58 L 99 10/03/18 07:09 97.8 F 65 22 H 116/70 97 10/03/18 04:00 98.4 F 78 16 132/80 95 Weight Weight 164 lb 8 oz I&O: 10/02/18 10/03/18 10/04/18 06:59 06:59 06:59 Intake Total 2880 3420 Output Total 2150 2900 Balance 730 520 Result Diagrams: 09/30/18 05:24 10/04/18 05:44 Additional Labs: Accuchecks 10/03/18 10/03/18 10/02/18 11:05 05:22 20:44 POC Glucose 138 H 104 192 H 10/02/18 16:45 POC Glucose 152 H Phys Exam - Physical Examination HEENT: moist MMs Neck: supple Respiratory: clear to auscultation bilateral Cardiovascular: RRR Gastrointestinal: soft suprapubic catheter Neurological: moves all 4 limbs Psychiatric: normal affect Dx/Plan (1) UTI (urinary tract infection) Status: Acute Comment: E. coli is resistant to fluoroquinolones, switch to macrobid. (2) Physical deconditioning Code(s): R53.81 - OTHER [facility] Status: Acute Comment: pt likely needs SNU (3) Chronic kidney disease, stage 3 Code(s): N18.3 - CHRONIC KIDNEY DISEASE, STAGE 3 (MODERATE) Status: Chronic Comment: stable (4) Hypertension Code(s): I10 - ESSENTIAL (PRIMARY) HYPERTENSION Status: Chronic Qualifiers: Hypertension type: essential hypertension Qualified Code(s): I10 - Essential (primary) hypertension Comment: controlled - Plan * . Review of Systems - Review of Systems Cardiovascular: negative: chest pain, palpitations, orthopnea, paroxysmal nocturnal dyspnea, edema, light headedness Gastrointestinal: negative: Nausea, Vomiting, Abdominal Pain, Diarrhea, Constipation, Melena, Hematochezia - Medications/Allergies Allergies/Adverse Reactions: Allergies Allergy/AdvReac Type Severity Reaction Status Date / Time acetaminophen [From Tylenol] Allergy Verified 05/29/17 02:09 Medications: Current Medications Albuterol/Ipratropium (Duoneb) 3 ml NEB Q4H PRN PRN Reason: SOB &/or Wheezing Aspirin (Ecotrin) 81 mg PO DAILY [facility] Last Admin: 10/03/18 08:20 Dose: 81 mg Atorvastatin Calcium (Lipitor) 20 mg PO DAILY [facility] Last Admin: 10/03/18 08:20 Dose: 20 mg Bisacodyl (Dulcolax) 10 mg PO DAILYPRN PRN PRN Reason: Constipation Carvedilol (Coreg) 3.125 mg PO BID [facility] Last Admin: 10/03/18 08:21 Dose: 3.125 mg Dextrose/Water (Dextrose 50%) 25 gm SLOW IVP PRN PRN PRN Reason: Hypoglycemia Famotidine (Pepcid) 20 mg PO DAILY [facility] Last Admin: 10/03/18 08:21 Dose: 20 mg Ferrous Sulfate (Feosol) 325 mg PO BID [facility] Last Admin: 10/03/18 08:21 Dose: 325 mg Glucagon (Glucagon) 1 mg IM PRN PRN PRN Reason: Hypoglycemia Heparin Sodium (Porcine) (Heparin) 5,000 units SC BID [facility] Last Admin: 10/03/18 08:21 Dose: 5,000 units Insulin Glargine 10 units/ (Miscellaneous Medication) 0.1 mls @ 0 mls/hr SC BID -[facility] Last Admin: 10/03/18 08:17 Dose: 0.1 mls Sodium Chloride (Normal Saline 0.9%) 1,000 mls @ 65 mls/hr IV .[id number] [facility] Last Admin: 10/03/18 02:32 Dose: 1,000 mls Dextrose/Water (D5w) 1,000 mls @ 0 mls/hr IV .Q0M PRN PRN Reason: Hypoglycemia Insulin Human Lispro (Humalog) 0 units SC .MILD SLIDING SCALE PRN PRN Reason: Mild Correctional Scale Last Admin: 10/01/18 13:08 Dose: 2 unit Insulin Human Lispro (Humalog) 0 units SC .BEDTIME SLIDING SC PRN PRN Reason: Bedtime Correctional Scale Levothyroxine Sodium (Synthroid) 150 mcg PO 0600 [facility] Last Admin: 10/03/18 05:04 Dose: 150 mcg Nitrofurantoin Macrocrystals (Macrobid) 100 mg PO BID [facility] Nitrofurantoin Macrocrystals (Macrobid) 100 mg PO ONE [facility] Ondansetron HCl (Zofran Odt) 4 mg PO Q6H PRN PRN Reason: Nausea/Vomiting Last Admin: 10/01/18 01:46 Dose: 4 mg Ondansetron HCl (Zofran) 4 mg IVP Q6H PRN PRN Reason: Nausea/Vomiting Last Admin: 10/01/18 08:02 Dose: 4 mg Oxybutynin Chloride (Ditropan) 10 mg PO DAILY [facility] Last Admin: 10/03/18 08:20 Dose: 10 mg Pantoprazole Sodium (Protonix) 40 mg PO DAILY [facility] Last Admin: 10/03/18 08:42 Dose: 40 mg Senna/Docusate Sodium (Senokot S) 2 tab PO BIDPRN PRN PRN Reason: Constipation Sertraline HCl (Zoloft) 50 mg PO HS [facility] Last Admin: 10/02/18 21:35 Dose: 50 mg Sodium Chloride (Flush - Normal Saline) 10 ml IVF Q12HR [facility] Last Admin: 10/03/18 08:41 Dose: Not Given Sodium Chloride (Flush - Normal Saline) 10 ml IVF PRN PRN PRN Reason: Saline Flush Tramadol HCl (Ultram) 50 mg PO TIDPRN PRN PRN Reason: Pain Last Admin: 10/03/18 08:17 Dose: 50 mg
[2018-10-03] MEDS ORDERED: Nitrofurantoin Monohyd/M-Cryst 100 MG CAP PO SCH (12:45)
[2018-10-03] MEDS ORDERED: Ibuprofen 600 MG TAB PO PRN (20:58)
[2018-10-03] MEDS: Nitrofurantoin Monohyd/M-Cryst 100 MG CAP PO SCH (21:07)
[2018-10-04] MEDS: Levothyroxine 150 MCG TAB PO SCH (06:05)
[2018-10-04] MEDS: Sodium Chloride 0.9% 1,000 ML IV SCH (06:21)
[2018-10-04 06:52] LABS: Anion Gap 8 mmol/L (10-20); BUN (Urea Nitrogen) 14 mg/dL (8.4-25.7); Calc. Creatinine Clearance 34 mL/min (70-130); Calcium 8.2 mg/dL (7.8-10.44); Carbon Dioxide 26 mmol/L (23-31); Chloride 107 mmol/L (98-107); Estimated GFR-MDRD 34; Glucose 78 mg/dL (83-110); Potassium 4.4 mmol/L (3.5-5.1); Sodium 137 mmol/L (136-145)
--- NOTE | 2018-10-04 07:49 | PRG ---
DATE OF SERVICE: 10/03/2018 SUBJECTIVE: Patient was seen and examined at bedside and overnight events noted. Patient denies any shortness of breath or chest pain or palpitation. No history of nausea or vomiting or diarrhea or fever or chills or cramps. OBJECTIVE: GENERAL: This is a well-built male, in no apparent distress. VITAL SIGNS: Temperature 97.8. Heart rate 65. Respiratory rate 18. Blood pressure 116/60. HEENT: Atraumatic, normocephalic. Oral mucosa is moist NECK: Supple. CARDIOVASCULAR: S1, S2 heard. Rate and rhythm regular. RESPIRATORY: Clear to auscultation. GASTROINTESTINAL: Abdomen is soft. MUSCULOSKELETAL: No tenderness. No edema. DERMATOLOGIC: No skin rash. NEUROLOGIC: Alert and awake and oriented X3. No focal neurologic deficits. Moving all the extremities. PSYCHIATRIC: Mood and affect normal. LABORATORY DATA: Not done today. ASSESSMENT AND PLAN: 1. Acute kidney injury, recheck labs. 2. Chronic kidney disease. 3. Hypertension. 4. Edema. 5. Anemia. We will monitor. We will order labs in the morning. Job ID: [id number]
[2018-10-04] MEDS: traMADol HCl 50 MG TAB PO PRN ×2 (08:28→14:31)
[2018-10-04] MEDS: Famotidine 20 MG TAB PO SCH (08:34)
[2018-10-04] MEDS: Heparin 5,000 UNITS/ML VIAL SC SCH (08:34)
[2018-10-04] MEDS: Aspirin 81 mg Enteric Coated Tablet PO SCH (08:35)
[2018-10-04] MEDS: Atorvastatin Calcium 40 MG TAB PO SCH (08:35)
[2018-10-04] MEDS: Ferrous Sulfate 325 MG TAB PO SCH (08:35)
[2018-10-04] MEDS: Oxybutynin 5 MG TAB PO SCH (08:35)
[2018-10-04] MEDS: Carvedilol 3.125 MG TAB PO SCH (08:35)
[2018-10-04] MEDS: Nitrofurantoin Monohyd/M-Cryst 100 MG CAP PO SCH (08:36)
[2018-10-04] MEDS: Insulin Glargine 10 UNITS in Pre-Filled Syringe 1 EACH SC SCH (09:44)
--- NOTE | 2018-10-04 12:13 | PRG ---
DATE OF SERVICE: 10/04/2018 SUBJECTIVE: Patient was seen and examined at bedside and overnight events noted. Patient denies any shortness of breath or chest pain or palpitation. No history of nausea or vomiting or diarrhea or fever or chills or cramps. OBJECTIVE: GENERAL: This is a well-built male, in no apparent distress. VITAL SIGNS: Temperature 97.3, heart rate respiratory rate 18, blood pressure 106/57. HEENT: Atraumatic, normocephalic. Oral mucosa is moist NECK: Supple. CARDIOVASCULAR: S1, S2 heard. Rate and rhythm regular. RESPIRATORY: Clear to auscultation. GASTROINTESTINAL: Abdomen is soft. MUSCULOSKELETAL: No tenderness. DERMATOLOGIC: No skin rash. NEUROLOGIC: Alert and awake and oriented X3. No focal neurologic deficits. Moving all the extremities. PSYCHIATRIC: Mood and affect normal. LABORATORY DATA: BUN is 14, and creatinine is 1.9. ASSESSMENT AND PLAN: 1. Acute kidney injury on chronic kidney disease, stable. 2. Chronic kidney disease stage 3. 3. Hypertension. 4. Edema. 5. Anemia, stable. Creatinine is stable. I will sign off. Please call back with any questions. Job ID: [id number]
[2018-10-04 13:36] VITALS: BP 133/87; TEMP 97.8
--- NOTE | 2018-10-04 17:09 | DIS ---
DATE OF ADMISSION: 09/29/2018 DATE OF DISCHARGE: 10/04/2018 PRIMARY CARE PROVIDER: Mynor Griffin MD DISCHARGE DIAGNOSES: 1. Sepsis. 2. Urinary tract infection. 3. Catheter-associated urinary tract infection. CONDITION OF PATIENT ON THE DAY OF DISCHARGE: Stable. I assessed Mr. Saeed Jr on the day of discharge. He denies any chest pain or shortness of breath. Vital signs are stable. S1 and S2 are heard, regular. Lungs are clear to auscultation bilaterally. CONSULTATIONS DURING THIS HOSPITALIZATION: Nephrology, Dr. Rowley and Urology, Dr. Brasher. DISCHARGE MEDICATIONS: 1. Macrobid 100 mg 2 times a day for 6 more days. 2. ProAir HFA 2 puffs every 6 hours as needed. 3. Lipitor 20 mg daily. 4. Calcitriol 0.25 mcg daily. 5. Coreg 3.125 mg 2 times a day. 6. Nexium 40 mg daily. 7. Combivent 2 puffs 4 times a day. 8. Ketoconazole cream topically daily. 9. Synthroid 150 mcg daily. 10. Oxybutynin 10 mg daily. 11. Promethazine 25 mg every 12 hours. 12. Sertraline 50 mg at bedtime. 13. Tramadol 50 mg 3 times a day as needed. 14. Ferrous sulfate 325 mg 2 times a day. HOSPITAL COURSE: Mr. Saeed Jr is a pleasant 78-year-old gentleman, who was admitted to [facility] for generalized weakness. Please refer to Dr. Juarez's history and physical note dated September 30, 2018, for further details. He was admitted with a cough. However, chest x-ray did not show any acute process. He was, however, found to have a catheter-associated urinary tract infection. He was initially treated with levofloxacin. Urine cultures grew Escherichia coli that was resistant to ampicillin, ciprofloxacin, levofloxacin, and trimethoprim/sulfamethoxazole, intermediate sensitivity to ampicillin/sulbactam and sensitive to amikacin, cefepime, cefoxitin, ceftazidime, ceftriaxone, gentamicin, meropenem, nitrofurantoin, Zosyn, and tobramycin. The antibiotic was changed to Macrobid. He was clinically improving even prior to the antibiotic change. He is being discharged home in a stable condition. He was seen by Nephrology Service for acute kidney injury on chronic kidney disease stage 3. He was also seen by Urology Service for evaluation of suprapubic catheter. They did not think that he needed the suprapubic catheter changed. On the day of discharge, Mr. Saeed Jr has sodium 137, potassium 4.4, creatinine 1.95, and calcium 8.2. His TSH during this hospitalization was normal at 4.0515. BNP was slightly elevated at 297.2. Many thanks for allowing me to participate in your patient's care. Please feel free to contact me with any questions or concerns. ADDENDUM: Mr. Saeed Miller was also physically deconditioned during this hospitalization. detention was recommended. The patient and his daughter did not wish to have usp and wished to go home without home health. The patient is being discharged home per the patient's and daughter's wishes. DISCHARGE DESTINATION: Home. TOTAL AMOUNT OF TIME SPENT COORDINATING THIS DISCHARGE: 33 minutes. Job ID: [id number]
== END 2018-10-04 15:43 | disposition home or self-care (01) | DRG 698 ==
LOC: ERS 18:23 → SJJU 22:45 → UNDODISIN 09-30 13:48
PROVIDERS: ADMIT Family Medicine; ATTEND Family Medicine
DX: T83.511A Infection and inflammatory reaction due to indwelling urethral catheter, initial encounter (principal); A41.51 Sepsis due to Escherichia coli [E. coli]; N17.9 Acute kidney failure, unspecified; N39.0 Urinary tract infection, site not specified; Z87.440 Personal history of urinary (tract) infections; Z85.038 Personal history of other malignant neoplasm of large intestine; Z92.3 Personal history of irradiation; Z92.21 Personal history of antineoplastic chemotherapy; E11.9 Type 2 diabetes mellitus without complications; I12.9 Hypertensive chronic kidney disease with stage 1 through stage 4 chronic kidney disease, or unspecified chronic kidney disease; N18.3 Chronic kidney disease, stage 3 (moderate); Z85.118 Personal history of other malignant neoplasm of bronchus and lung; E78.5 Hyperlipidemia, unspecified; Z95.1 Presence of aortocoronary bypass graft; Z88.8 Allergy status to other drugs, medicaments and biological substances; Z79.891 Long term (current) use of opiate analgesic; Z79.899 Other long term (current) drug therapy; Z79.82 Long term (current) use of aspirin; I25.10 Atherosclerotic heart disease of native coronary artery without angina pectoris; D64.9 Anemia, unspecified; Z16.24 Resistance to multiple antibiotics; Z93.3 Colostomy status; R53.81 Other malaise; Y84.6 Urinary catheterization as the cause of abnormal reaction of the patient, or of later complication, without mention of misadventure at the time of the procedure
CPT/HCPCS: 36415; 36416; 71045; 80048; 80053; 81003; 81015; 82553; 82805; 83605; 83690; 83880; 84443; 84484; 85025; 87040; 87077; 87086; 87149; 87186; 87804; 93005; 94640; 96361; 96365; 96375; J1644; J1956; J2185; J2405; J7620; Q0162; S0028

== ENCOUNTER 2019-01-13 11:33 | Inpatient (IN) | payer MEDICARE, MEDICAID ==
[2019-01-13 12:08] LABS: #Basophils 0.1 thou/uL (0.0-0.2); #Eosinphils 0.1 thou/uL (0.0-0.7); #Lymphocytes 2.4 thou/uL (1.20-3.40); #Monocytes 0.7 thou/uL (0.11-0.59); #Neutrophils 11.6 thou/uL (1.40-6.50); %Basophils 0.6 % (0.0-1.0); %Lymphocytes 16.2 % (21.0-51.0); %Monocytes 4.6 % (0.0-10.0); %Neutrophils 77.6 % (42.0-75.0); Hemoglobin 12.6 g/dL (14.0-18.0); Mean Corpuscular HGB CONC 31.6 g/dL (32.0-36.0); Mean Corpuscular Hemoglobin 29.1 pg (27.0-31.0); Mean Corpuscular Volume 91.9 fL (78.0-98.0); Platelet Count 374 thou/uL (130-400); Red Blood Cell (RBC) Count 4.33 mill/uL (4.70-6.10); White Blood Cell (WBC) Count 14.9 thou/uL (4.8-10.8)
[2019-01-13 12:13] LABS: Bilirubin Small (Negative); Blood, Urine Large (Negative); Glucose, Urine (Dipstick) Negative (Negative); Leukocyte Large (Negative); Nitrite Negative (Negative); Protein, Urine (Dipstick) 100 mg/dL (Neg-Trace); Specific Gravity, Urine 1.025 (1.005-1.030); Urobilinogen 0.2 mg/dL (0.2-1.0)
[2019-01-13 12:21] LABS: Clarity Turbid (Clear)
[2019-01-13 12:23] LABS: Bacteria/HPF 4+ HPF (None Seen); Hyaline Casts/LPF NONE SEEN LPF (0-3 Hyaline)
[2019-01-13 12:31] LABS: ALT (SGPT) 33 U/L (8-55); AST (SGOT) 34 U/L (5-34); Albumin 2.1 g/dL (3.4-4.8); Alkaline Phosphatase 158 U/L (40-150); Anion Gap 18 mmol/L (10-20); BUN (Urea Nitrogen) 36 mg/dL (8.4-25.7); Bilirubin, Total 0.5 mg/dL (0.2-1.2); Calc. Creatinine Clearance 0 mL/min (70-130); Calcium 8.9 mg/dL (7.8-10.44); Carbon Dioxide 26 mmol/L (23-31); Chloride 93 mmol/L (98-107); Estimated GFR-MDRD 17; Globulin 5.8 g/dL (2.4-3.5); Glucose 202 mg/dL (83-110); Lipase Less than 4 U/L (8-78); Potassium 4.5 mmol/L (3.5-5.1); Protein, Total 7.9 g/dL (5.8-8.1); Sodium 132 mmol/L (136-145)
[2019-01-13] MEDS ORDERED: cefTRIAXone\\ROCEPHIN 1 GM VIAL ONE (13:10)
[2019-01-13] MEDS ORDERED: Ondansetron ODT 4 MG TAB SL PRN (14:00)
[2019-01-13] MEDS ORDERED: Ondansetron PF 4 MG/2 ML Vial IVP PRN (14:00)
[2019-01-13 15:34] VITALS: BMI 23.1
[2019-01-13] MEDS ORDERED: Dextrose 5% in Water 1,000 ML IV PRN (17:22)
[2019-01-13] MEDS ORDERED: Dextrose 50% Abboject 50 ML SYRINGE SLOW IVP PRN (17:22)
[2019-01-13] MEDS ORDERED: HumaLOG 300 UNITS/3 ML VIAL SC PRN ×2 (17:22)
[2019-01-13] MEDS ORDERED: PROVENTIL INHALER 6.7 G (200 INHALATIONS) INH PRN (18:15)
[2019-01-13] MEDS: Sodium Chloride 0.9% 1,000 ML IV SCH (18:23)
[2019-01-13] MEDS: traMADol HCl 50 MG TAB PO PRN (18:28)
[2019-01-13] MEDS: Vancomycin HCl 1 GM in Premix Bag 1 BAG IVPB SCH (20:51)
[2019-01-13] MEDS: Ferrous Gluconate 324 MG TAB PO SCH (20:52)
[2019-01-13] MEDS: Carvedilol 3.125 MG TAB PO SCH (20:52)
[2019-01-13] MEDS: Famotidine 20 MG TAB PO SCH (20:52)
[2019-01-13] MEDS ORDERED: SODIUM CHLORIDE 0.9% IVPB SCH (21:00)
[2019-01-13] MEDS ORDERED: VANCOMYCIN HCL IVPB SCH (21:00)
--- NOTE | 2019-01-14 00:14 | HP ---
PRIMARY CARE PROVIDER: Dr. Griffin. CHIEF COMPLAINT: Nausea and vomiting, and general weakness. HISTORY OF PRESENT ILLNESS: This is a 78-year-old male who presents with approximately a week long history of persistent nausea, vomiting, decreased oral intake, general fatigue and weakness, which began somewhat insidiously approximately a week prior to this evaluation. The patient states he had difficulty maintaining adequate oral intake and fluids and became progressively dehydrated. The patient states his legs felt weak and he had difficulty ambulating even short distances due to severe fatigue. The patient noted loose stool, however, denied any hematemesis or melena. The patient denied any recent travel history, family members with similar symptoms, or change to his chronic medication regimen. The patient's history also significant for chronic indwelling suprapubic catheter with history of recurrent urinary tract infections, most recently in 10/2018. The patient states the catheter was changed in the last 48 hours by a home health nurse. The patient denied any documented specific fever and states he has been consistent with his chronic medication regimen. In the emergency room, the patient underwent general evaluation with urinalysis suspicious for infectious process, receiving IV Rocephin 1 g. The patient also received 2 L of normal saline after creatinine was elevated at 3.5 consistent with acute kidney injury. PAST MEDICAL HISTORY: 1. Chronic indwelling suprapubic catheter. 2. Recurrent urinary tract infection, secondary to #. 3. History of colon cancer, status post chemotherapy and radiation. 4. Diabetes mellitus type 2. 5. Hyperlipidemia. 6. Hypertension. 7. History of lung carcinoma, status post radiation. 8. Chronic bilateral renal cysts. 9. Hypothyroidism. 10. Depression. PAST SURGICAL HISTORY: 1. Status post coronary artery bypass grafting x4 vessels. 2. Status post suprapubic catheter placement in 01/2016 - exchanged 48 hours prior to this evaluation. 3. Status post colostomy. 4. Status post bilateral cataract removal. CURRENT MEDICATIONS: 1. ProAir RespiClick 2 puffs inhaled q.4 hours p.r.n. 2. Lipitor 20 mg p.o. at bedtime. 3. Calcitriol 0.25 mcg p.o. daily. 4. Coreg 3.125 mg p.o. b.i.d. 5. Nexium 40 mg p.o. daily. 6. Levothyroxine 200 mcg p.o. daily. 7. Ditropan 10 mg p.o. daily. 8. Sertraline 50 mg p.o. at bedtime. 9. Tramadol 50 mg p.o. t.i.d. p.r.n. 10. Ferrous sulfate 325 mg p.o. b.i.d. ALLERGIES: TO ACETAMINOPHEN AND CODEINE. FAMILY HISTORY: Positive for diabetes mellitus and hypertension. SOCIAL HISTORY: The patient resides in [place], [place]. Receives home health services including nursing care and medication assistance. Ambulates with a rolling walker. No current alcohol, tobacco, or illicit drug use. Medical power of managing attorney is the patient's daughter. REVIEW OF SYSTEMS: CONSTITUTIONAL: Negative for weight loss or gain, ability to conduct usual activities. SKIN: Negative for rash, itching. EYES: Negative for double vision, pain. ENT/MOUTH: Negative for nose bleeding, neck stiffness, pain, tenderness. CARDIOVASCULAR: Negative for palpitations, dyspnea on exertion, orthopnea. RESPIRATORY: Negative for shortness of breath, wheezing, cough, hemoptysis, fever or night sweats. GASTROINTESTINAL: Negative for poor appetite, abdominal pain, heartburn, nausea, vomiting, constipation, or diarrhea. GENITOURINARY: Negative for urgency, frequency, dysuria, nocturia. MUSCULOSKELETAL: Negative for pain, swelling. NEUROLOGIC/PSYCHIATRIC: Negative for anxiety, depression. ALLERGY/IMMUNOLOGIC: Negative for skin rash, bleeding tendency. Otherwise negative except as stated per HPI. PHYSICAL EXAMINATION: VITAL SIGNS: Currently blood pressure 132/83, pulse 82, respiratory rate 20, temperature 97.3 degrees Fahrenheit, and O2 saturation 100% on room air. GENERAL APPEARANCE: This is a 78-year-old male, pale appearing, dehydrated, alert, and responsive. HEENT: Pupils are equal, round, and reactive to light and accommodation. Extraocular muscles are intact. No scleral icterus. No conjunctival injection. Nares patent. OP is clear. Oral mucosa markedly dry. NECK: Supple. No cervical adenopathy. No thyromegaly. No carotid bruits. No JVD noted. Cervical spine with full active and passive range of motion. No meningeal signs noted. CHEST: Lungs are clear to auscultation bilaterally with occasional scattered coarse sounds in the bases. CARDIOVASCULAR: S1 and S2 without noted murmur, rub, or gallop. ABDOMEN: Rounded with mild tenderness to palpation in the umbilical region. Suprapubic catheter in place without purulent discharge. Bowel sounds are positive in all 4 quadrants. No palpable mass. No rebound or guarding noted. EXTREMITIES: Warm and dry with poor turgor. Cool to touch. Pulses are palpable distally at the dorsalis pedis, posterior tibial, and popliteal arteries bilaterally. Capillary refill less than 2 seconds. NEUROLOGIC: Cranial nerves 2 through 12 are grossly intact. No focal or lateralizing signs appreciated. The patient not observed ambulatory during this exam. PERTINENT LABORATORY AND X-RAY FINDINGS: Sodium 132, potassium 4.5, chloride 93, CO2 of 26, BUN 36, creatinine 3.49, estimated GFR of 17, and glucose 202. Lactic acid level 6.3. Calcium 8.9. LFTs; alkaline phosphatase 158, albumin 2.1. Lipase less than 4. CBC showed a white blood cell count of 14.9, hemoglobin 13, hematocrit is 40, and platelet count 374 with 78% neutrophilia. Urinalysis dated 01/13/2019, positive for large leukocyte esterase and blood with greater than 50 to [id number] wbc's per high-power field, 4+ bacteria. ASSESSMENT AND PLAN: 1. Sepsis secondary to urinary tract infection. The patient will be admitted to the medical floor. The patient received initial IV fluid resuscitation per sepsis protocol in the emergency room. We will continue intravenous normal saline at 100 mL/h. Continue Rocephin 2 g IV q.24 hours with additional vancomycin dosed for current renal dysfunction. Await final urine and blood culture results. 2. Urinary tract infection secondary to chronic indwelling catheter. We will continue IV antibiotic coverage as outlined in #1. Await final urine culture results. Recent exchange of suprapubic catheter within 48 hours of admission. 3. Acute kidney injury on chronic kidney disease, stage 3 to 4. We will continue IV fluids as outlined previously. Avoid nephrotoxic agents and limit contrast exposure. Repeat creatinine in the a.m. 4. Lactic acidosis. Suspect multifactorial including sepsis in addition to acute kidney injury. We will continue IV fluids and treat underlying infectious process. Repeat lactic acid level per sepsis protocol. 5. Deconditioning. We will obtain Physical Therapy consult for functional assessment. General fall risk precautions. Consider home health versus shelter facility options. 6. Diabetes mellitus type 2. Confirm home insulin regimen. Insulin sliding scale for reflexive coverage. Serial Accu-Cheks before meals and at bedtime. ADA diet. 7. Prophylaxis. Sequential compression devices while in bed. Pepcid 20 mg p.o. b.i.d. PT evaluation pending. CODE STATUS: Full. Surrogate medical decision maker is the patient's daughter. Job ID: [id number]
[2019-01-14] MEDS: Sodium Chloride 0.9% 1,000 ML IV SCH ×3 (05:12→21:10)
[2019-01-14] MEDS: Levothyroxine 150 MCG TAB PO SCH (05:12)
[2019-01-14] MEDS: traMADol HCl 50 MG TAB PO PRN ×2 (05:13→18:15)
[2019-01-14 06:50] LABS: Anion Gap 11 mmol/L (10-20); BUN (Urea Nitrogen) 35 mg/dL (8.4-25.7); Calc. Creatinine Clearance 19 mL/min (70-130); Calcium 7.8 mg/dL (7.8-10.44); Carbon Dioxide 25 mmol/L (23-31); Chloride 104 mmol/L (98-107); Estimated GFR-MDRD 21; Glucose 126 mg/dL (83-110); Potassium 4.2 mmol/L (3.5-5.1); Sodium 136 mmol/L (136-145)
[2019-01-14 07:05] LABS: Thyroid Stimulating Hormone 35.4264 uIU/mL (0.35-4.94)
[2019-01-14 07:41] LABS: Hemoglobin 10.8 g/dL (14.0-18.0); Mean Corpuscular HGB CONC 30.7 g/dL (32.0-36.0); Mean Corpuscular Hemoglobin 28.6 pg (27.0-31.0); Mean Corpuscular Volume 93.2 fL (78.0-98.0); Mean Platelet Volume 6.6 fL (7.4-10.4); Platelet Count 302 thou/uL (130-400); RBC Distribution Width 15.2 % (11.5-14.5); White Blood Cell (WBC) Count 10.5 thou/uL (4.8-10.8)
[2019-01-14 07:58] LABS: Band 8 % (5-11); Eosinophils 4 % (0-10); Lymphocytes 23 % (21-51); MDiff Complete? YES; Monocytes 2 % (0-10); Neutrophil 63 % (42-75)
[2019-01-14 08:36] LABS: Free T4 (Free Thyroxine) Less than 0.40 ng/dL (0.70-1.48)
[2019-01-14] MEDS: Calcitriol 0.25 MCG CAP PO SCH (08:58)
[2019-01-14] MEDS: Ferrous Gluconate 324 MG TAB PO SCH ×2 (08:59→21:06)
[2019-01-14] MEDS: Oxybutynin 5 MG TAB PO SCH (08:59)
[2019-01-14] MEDS: Famotidine 20 MG TAB PO SCH ×2 (08:59→21:05)
[2019-01-14] MEDS: Carvedilol 3.125 MG TAB PO SCH ×2 (08:59→21:05)
[2019-01-14] MEDS: Vancomycin HCl 1 GM in Premix Bag 1 BAG IVPB SCH (08:59)
[2019-01-14] MEDS: Ondansetron PF 4 MG/2 ML Vial IVP PRN (09:02)
--- NOTE | 2019-01-14 14:28 | PDOC.PN ---
- Subjective Encounter Start Date: 01/14/19 Encounter Start Time: 10:00 -: old records requested/rev Patient seen and examined. No new complaints. No overnight events - Objective Resuscitation Status - Order Detail: 01/13/19 17:12 Resuscitation Status Routine Resuscitation Status: FULL: Full Resuscitation MAR Reviewed: Yes Vital Signs & Weight: Vital Signs (12 hours) Temp Pulse Resp BP Pulse Ox 01/14/19 11:05 97.2 F L 75 16 101/64 97 01/14/19 09:10 100 01/14/19 08:05 97.5 F L 82 12 116/74 100 01/14/19 05:01 97.5 F L 82 16 119/68 99 Weight Weight 139 lb 6.4 oz I&O: 01/13/19 01/14/19 01/15/19 06:59 06:59 06:59 Intake Total 1200 Output Total 360 Balance 840 Result Diagrams: 01/14/19 06:02 01/14/19 06:02 Additional Labs: Accuchecks 01/14/19 01/14/19 01/13/19 11:08 04:54 19:58 POC Glucose 185 H 131 H 120 H 01/13/19 16:32 POC Glucose 128 H Phys Exam - Physical Examination Constitutional: NAD HEENT: PERRLA, moist MMs, sclera anicteric Neck: no JVD, supple Respiratory: no wheezing, no rales, no rhonchi Cardiovascular: RRR, no significant murmur, no rub Gastrointestinal: soft, non-tender, no distention, positive bowel sounds suprapubic catheter+ Musculoskeletal: no edema, pulses present Neurological: non-focal Lymphatic: no nodes Psychiatric: normal affect Skin: no rash, normal turgor Dx/Plan (1) Acute worsening of stage 3 chronic kidney disease Code(s): N18.3 - CHRONIC KIDNEY DISEASE, STAGE 3 (MODERATE) Status: Acute (2) Catheter-associated urinary tract infection Code(s): T83.511A - I/I REACT D/T INDWELLING URETHRAL CATHETER, INIT; N39.0 - URINARY TRACT INFECTION, SITE NOT SPECIFIED Status: Acute Qualifiers: Comment: suprapubic catheter, infection and sepsis present on admission (3) Lactic acidosis Code(s): E87.2 - ACIDOSIS Status: Acute (4) Physical deconditioning Code(s): R53.81 - OTHER MALAISE Status: Acute Comment: pt likely needs SNU (5) Sepsis with acute organ dysfunction Code(s): A41.9 - SEPSIS, UNSPECIFIED ORGANISM; R65.20 - SEVERE SEPSIS WITHOUT SEPTIC SHOCK Status: Acute (6) Anxiety and depression Code(s): F41.9 - ANXIETY DISORDER, UNSPECIFIED; F32.9 - MAJOR DEPRESSIVE DISORDER, SINGLE EPISODE, UNSPECIFIED Status: Chronic (7) Chronic anemia Code(s): D64.9 - ANEMIA, UNSPECIFIED Status: Chronic (8) DM2 (diabetes mellitus, type 2) Status: Chronic Qualifiers: (9) Dyslipidemia Code(s): E78.5 - HYPERLIPIDEMIA, UNSPECIFIED Status: Chronic (10) History of colon cancer Code(s): Z85.038 - PERSONAL HISTORY OF MALIGNANT NEOPLASM OF LARGE INTESTINE Status: Chronic (11) History of lung cancer Code(s): Z85.118 - PERSONAL HISTORY OF MALIGNANT NEOPLASM OF BRONCHUS AND LUNG Status: Chronic (12) Hypertension Code(s): I10 - ESSENTIAL (PRIMARY) HYPERTENSION Status: Chronic Qualifiers: Comment: controlled (13) Hypothyroidism Code(s): E03.9 - HYPOTHYROIDISM, UNSPECIFIED Status: Chronic - Plan cont current plan of care, plan discussed w/ family, continue antibiotics * medication reviewed as below * symptomatic treatment * continue rocephin * follow culture * discussed with family bedside * repeat labs tomorrow. * home meds reconciled Review of Systems - Review of Systems ENT: negative: Ear Pain, Ear Discharge, Nose Pain, Nose Discharge, Nose Congestion, Mouth Pain, Mouth Swelling, Throat Pain, Throat Swelling, Other Respiratory: negative: Cough, Dry, Shortness of Breath, Hemoptysis, SOB with Excertion, Pleuritic Pain, Sputum, Wheezing Cardiovascular: negative: chest pain, palpitations, orthopnea, paroxysmal nocturnal dyspnea, edema, light headedness, other Gastrointestinal: negative: Nausea, Vomiting, Abdominal Pain, Diarrhea, Constipation, Melena, Hematochezia, Other Genitourinary: negative: Dysuria, Frequency, Incontinence, Hematuria, Retention , Other Musculoskeletal: negative: Neck Pain, Shoulder Pain, Arm Pain, Back Pain, Hand Pain, Leg Pain, Foot Pain, Other Skin: negative: Rash, Lesions, Nicko, Bruising, Other - Medications/Allergies Allergies/Adverse Reactions: Allergies Allergy/AdvReac Type Severity Reaction Status Date / Time acetaminophen [From Tylenol] Allergy Verified 05/29/17 02:09 codeine Allergy Verified 01/13/19 15:17 Medications: Current Medications Albuterol Sulfate (Proventil Hfa) 2 puff INH Q4H PRN PRN Reason: Dyspnea Atorvastatin Calcium (Lipitor) 20 mg PO HS [facility] Calcitriol (Rocaltrol) 0.25 mcg PO DAILY [facility] Last Admin: 01/14/19 08:58 Dose: 0.25 mcg Carvedilol (Coreg) 3.125 mg PO BID [facility] Last Admin: 01/14/19 08:59 Dose: 3.125 mg Dextrose/Water (Dextrose 50%) 25 gm SLOW IVP PRN PRN PRN Reason: Hypoglycemia Famotidine (Pepcid) 20 mg PO BID [facility] Last Admin: 01/14/19 08:59 Dose: 20 mg Ferrous Gluconate (Fergon) 324 mg PO BID [facility] Last Admin: 01/14/19 08:59 Dose: 324 mg Glucagon (Glucagon) 1 mg IM PRN PRN PRN Reason: Hypoglycemia Ceftriaxone Sodium 2 gm/ (Sodium Chloride) 100 mls @ 200 mls/hr IVPB Q24HR [facility] Dextrose/Water (D5w) 1,000 mls @ 0 mls/hr IV .Q0M PRN PRN Reason: Hypoglycemia Sodium Chloride (Normal Saline 0.9%) 1,000 mls @ 100 mls/hr IV .Q10H [facility] Last Admin: 01/14/19 05:12 Dose: 1,000 mls Vancomycin HCl 1 gm/ Device 200 mls @ 200 mls/hr IVPB .PENDING LEVEL [facility] Insulin Human Lispro (Humalog) 0 units SC .MILD SLIDING SCALE PRN PRN Reason: Mild Correctional Scale Insulin Human Lispro (Humalog) 0 units SC .BEDTIME SLIDING SC PRN PRN Reason: Bedtime Correctional Scale Levothyroxine Sodium (Synthroid) 200 mcg PO 0600 [facility] Last Admin: 01/14/19 05:12 Dose: 200 mcg Miscellaneous Medication (Pharmacy To Dose) 1 each IVPB PRN PRN PRN Reason: Pharmacy to dose Ondansetron HCl (Zofran Odt) 4 mg PO Q6H PRN PRN Reason: Nausea/Vomiting Ondansetron HCl (Zofran) 4 mg IVP Q6H PRN PRN Reason: Nausea/Vomiting Last Admin: 01/14/19 09:02 Dose: 4 mg Oxybutynin Chloride (Ditropan) 10 mg PO DAILY [facility] Last Admin: 01/14/19 08:59 Dose: 10 mg Sertraline HCl (Zoloft) 50 mg PO HS [facility] Last Admin: 01/13/19 21:16 Dose: 50 mg Tramadol HCl (Ultram) 50 mg PO TID PRN PRN Reason: Pain Last Admin: 01/14/19 05:13 Dose: 50 mg
[2019-01-14] MEDS: cefTRIAXone\\ROCEPHIN 2 GM in Sodium Chloride 0.9% 100 ML IVPB SCH (14:30)
[2019-01-14] MEDS ORDERED: Vancomycin HCl 1 GM in Premix Bag 1 BAG IVPB SCH (21:00)
[2019-01-14] MEDS: Atorvastatin Calcium 20 MG TAB PO SCH (21:06)
[2019-01-14 21:38] LABS: Vancomycin, Random 27.7 ug/mL (See Comment)
[2019-01-15] MEDS: Levothyroxine 150 MCG TAB PO SCH (05:16)
[2019-01-15] MEDS: Ferrous Gluconate 324 MG TAB PO SCH ×2 (09:00→17:12)
[2019-01-15] MEDS: Oxybutynin 5 MG TAB PO SCH (09:00)
[2019-01-15] MEDS: Sodium Chloride 0.9% 1,000 ML IV SCH ×2 (09:01→19:12)
[2019-01-15] MEDS: Calcitriol 0.25 MCG CAP PO SCH (09:01)
[2019-01-15] MEDS: Carvedilol 3.125 MG TAB PO SCH ×2 (09:01→20:16)
[2019-01-15] MEDS: Famotidine 20 MG TAB PO SCH ×2 (09:01→20:16)
--- NOTE | 2019-01-15 10:21 | PDOC.PN ---
- Subjective Encounter Start Date: 01/15/19 Encounter Start Time: 08:40 Patient seen and examined. No new complaints. No overnight events pt has poor apatite - Objective Resuscitation Status - Order Detail: 01/13/19 17:12 Resuscitation Status Routine Resuscitation Status: FULL: Full Resuscitation MAR Reviewed: Yes Vital Signs & Weight: Vital Signs (12 hours) Temp Pulse Resp BP Pulse Ox 01/15/19 07:24 97.7 F 70 18 102/65 97 01/15/19 05:21 97.9 F 88 18 121/73 98 01/15/19 00:27 97.9 F 73 18 111/70 98 Weight Weight 139 lb 6.4 oz I&O: 01/14/19 01/15/19 01/16/19 06:59 06:59 06:59 Intake Total 1200 2777 Output Total 360 900 Balance 840 1877 Result Diagrams: 01/14/19 06:02 01/14/19 06:02 Additional Labs: Accuchecks 01/15/19 01/14/19 01/14/19 05:05 20:56 15:04 POC Glucose 90 139 H 162 H 01/14/19 11:08 POC Glucose 185 H Phys Exam - Physical Examination Constitutional: NAD HEENT: PERRLA, moist MMs, sclera anicteric Neck: no JVD, supple Respiratory: no wheezing, no rales, no rhonchi Cardiovascular: RRR, no significant murmur, no rub Gastrointestinal: soft, non-tender, no distention, positive bowel sounds suprapubic catheter+ Musculoskeletal: no edema, pulses present Neurological: non-focal, normal sensation Lymphatic: no nodes Psychiatric: normal affect, A&O x 3 Skin: no rash, normal turgor Dx/Plan (1) Acute worsening of stage 3 chronic kidney disease Code(s): N18.3 - CHRONIC KIDNEY DISEASE, STAGE 3 (MODERATE) Status: Acute (2) Catheter-associated urinary tract infection Code(s): T83.511A - I/I REACT D/T INDWELLING URETHRAL CATHETER, INIT; N39.0 - URINARY TRACT INFECTION, SITE NOT SPECIFIED Status: Acute Qualifiers: Comment: suprapubic catheter, infection and sepsis present on admission (3) Lactic acidosis Code(s): E87.2 - ACIDOSIS Status: Acute (4) Physical deconditioning Code(s): R53.81 - OTHER MALAISE Status: Acute Comment: (5) Sepsis with acute organ dysfunction Code(s): A41.9 - SEPSIS, UNSPECIFIED ORGANISM; R65.20 - SEVERE SEPSIS WITHOUT SEPTIC SHOCK Status: Acute (6) Anxiety and depression Code(s): F41.9 - ANXIETY DISORDER, UNSPECIFIED; F32.9 - MAJOR DEPRESSIVE DISORDER, SINGLE EPISODE, UNSPECIFIED Status: Chronic (7) Chronic anemia Code(s): D64.9 - ANEMIA, UNSPECIFIED Status: Chronic (8) DM2 (diabetes mellitus, type 2) Status: Chronic Qualifiers: (9) Dyslipidemia Code(s): E78.5 - HYPERLIPIDEMIA, UNSPECIFIED Status: Chronic (10) History of colon cancer Code(s): Z85.038 - PERSONAL HISTORY OF MALIGNANT NEOPLASM OF LARGE INTESTINE Status: Chronic (11) History of lung cancer Code(s): Z85.118 - PERSONAL HISTORY OF MALIGNANT NEOPLASM OF BRONCHUS AND LUNG Status: Chronic (12) Hypertension Code(s): I10 - ESSENTIAL (PRIMARY) HYPERTENSION Status: Chronic Qualifiers: Comment: controlled (13) Hypothyroidism Code(s): E03.9 - HYPOTHYROIDISM, UNSPECIFIED Status: Chronic - Plan cont current plan of care, continue antibiotics, PT/OT * continue rocephin * dc vancomycin * medication reviewed as below * symptomatic treatment * continue IVF. Review of Systems - Review of Systems ENT: negative: Ear Pain, Ear Discharge, Nose Pain, Nose Discharge, Nose Congestion, Mouth Pain, Mouth Swelling, Throat Pain, Throat Swelling, Other Respiratory: negative: Cough, Dry, Shortness of Breath, Hemoptysis, SOB with Excertion, Pleuritic Pain, Sputum, Wheezing Cardiovascular: negative: chest pain, palpitations, orthopnea, paroxysmal nocturnal dyspnea, edema, light headedness, other Gastrointestinal: negative: Nausea, Vomiting, Abdominal Pain, Diarrhea, Constipation, Melena, Hematochezia, Other Genitourinary: negative: Dysuria, Frequency, Incontinence, Hematuria, Retention , Other Musculoskeletal: negative: Neck Pain, Shoulder Pain, Arm Pain, Back Pain, Hand Pain, Leg Pain, Foot Pain, Other - Medications/Allergies Allergies/Adverse Reactions: Allergies Allergy/AdvReac Type Severity Reaction Status Date / Time acetaminophen [From Tylenol] Allergy Verified 05/29/17 02:09 codeine Allergy Verified 01/13/19 15:17 Medications: Current Medications Albuterol Sulfate (Proventil Hfa) 2 puff INH Q4H PRN PRN Reason: Dyspnea Atorvastatin Calcium (Lipitor) 20 mg PO HS [facility] Last Admin: 01/14/19 21:06 Dose: 20 mg Calcitriol (Rocaltrol) 0.25 mcg PO DAILY [facility] Last Admin: 01/15/19 09:01 Dose: 0.25 mcg Carvedilol (Coreg) 3.125 mg PO BID [facility] Last Admin: 01/15/19 09:01 Dose: 3.125 mg Dextrose/Water (Dextrose 50%) 25 gm SLOW IVP PRN PRN PRN Reason: Hypoglycemia Famotidine (Pepcid) 20 mg PO BID [facility] Last Admin: 01/15/19 09:01 Dose: 20 mg Ferrous Gluconate (Fergon) 324 mg PO BID-[facility] Last Admin: 01/15/19 09:00 Dose: 324 mg Glucagon (Glucagon) 1 mg IM PRN PRN PRN Reason: Hypoglycemia Ceftriaxone Sodium 2 gm/ (Sodium Chloride) 100 mls @ 200 mls/hr IVPB Q24HR [facility] Last Admin: 01/14/19 14:30 Dose: 100 mls Dextrose/Water (D5w) 1,000 mls @ 0 mls/hr IV .Q0M PRN PRN Reason: Hypoglycemia Sodium Chloride (Normal Saline 0.9%) 1,000 mls @ 100 mls/hr IV .Q10H [facility] Last Admin: 01/15/19 09:01 Dose: 1,000 mls Insulin Human Lispro (Humalog) 0 units SC .MILD SLIDING SCALE PRN PRN Reason: Mild Correctional Scale Insulin Human Lispro (Humalog) 0 units SC .BEDTIME SLIDING SC PRN PRN Reason: Bedtime Correctional Scale Levothyroxine Sodium (Synthroid) 200 mcg PO 0600 [facility] Last Admin: 01/15/19 05:16 Dose: 200 mcg Ondansetron HCl (Zofran Odt) 4 mg PO Q6H PRN PRN Reason: Nausea/Vomiting Ondansetron HCl (Zofran) 4 mg IVP Q6H PRN PRN Reason: Nausea/Vomiting Last Admin: 01/14/19 09:02 Dose: 4 mg Oxybutynin Chloride (Ditropan) 10 mg PO DAILY [facility] Last Admin: 01/15/19 09:00 Dose: 10 mg Sertraline HCl (Zoloft) 50 mg PO HS [facility] Last Admin: 01/14/19 21:06 Dose: 50 mg Tramadol HCl (Ultram) 50 mg PO TID PRN PRN Reason: Pain Last Admin: 01/14/19 18:15 Dose: 50 mg
[2019-01-15] MEDS: cefTRIAXone\\ROCEPHIN 2 GM in Sodium Chloride 0.9% 100 ML IVPB SCH (15:25)
[2019-01-15] MEDS: traMADol HCl 50 MG TAB PO PRN (17:12)
[2019-01-15] MEDS: Ondansetron PF 4 MG/2 ML Vial IVP PRN (20:12)
[2019-01-15] MEDS: Atorvastatin Calcium 20 MG TAB PO SCH (20:16)
[2019-01-16] MEDS: Sodium Chloride 0.9% 1,000 ML IV SCH (05:27)
[2019-01-16] MEDS: Levothyroxine 150 MCG TAB PO SCH (05:28)
[2019-01-16] MEDS: traMADol HCl 50 MG TAB PO PRN ×2 (05:32→14:25)
[2019-01-16 07:04] LABS: #Eosinphils 0.2 thou/uL (0.0-0.7); #Lymphocytes 2.4 thou/uL (1.20-3.40); #Monocytes 0.7 thou/uL (0.11-0.59); #Neutrophils 6.3 thou/uL (1.40-6.50); %Basophils 0.4 % (0.0-1.0); %Eosinophils 2.4 % (0.0-10.0); %Lymphocytes 24.5 % (21.0-51.0); %Monocytes 7.2 % (0.0-10.0); %Neutrophils 65.5 % (42.0-75.0); Hemoglobin 10.2 g/dL (14.0-18.0); Mean Corpuscular HGB CONC 31.2 g/dL (32.0-36.0); Mean Corpuscular Hemoglobin 28.8 pg (27.0-31.0); Mean Corpuscular Volume 92.3 fL (78.0-98.0); Mean Platelet Volume 6.5 fL (7.4-10.4); Platelet Count 268 thou/uL (130-400); Red Blood Cell (RBC) Count 3.53 mill/uL (4.70-6.10); White Blood Cell (WBC) Count 9.7 thou/uL (4.8-10.8)
[2019-01-16 07:32] LABS: Anion Gap 11 mmol/L (10-20); BUN (Urea Nitrogen) 24 mg/dL (8.4-25.7); Calc. Creatinine Clearance 21 mL/min (70-130); Calcium 7.6 mg/dL (7.8-10.44); Carbon Dioxide 20 mmol/L (23-31); Chloride 109 mmol/L (98-107); Estimated GFR-MDRD 24; Glucose 83 mg/dL (83-110); Potassium 3.7 mmol/L (3.5-5.1); Sodium 136 mmol/L (136-145)
[2019-01-16] MEDS: Oxybutynin 5 MG TAB PO SCH (08:58)
[2019-01-16] MEDS: Famotidine 20 MG TAB PO SCH ×2 (08:58→20:17)
[2019-01-16] MEDS: Carvedilol 3.125 MG TAB PO SCH ×2 (08:58→20:16)
[2019-01-16] MEDS: Ferrous Gluconate 324 MG TAB PO SCH ×2 (08:58→17:06)
[2019-01-16] MEDS: Calcitriol 0.25 MCG CAP PO SCH (08:58)
--- NOTE | 2019-01-16 09:32 | PDOC.PN ---
- Subjective Encounter Start Date: 01/16/19 Encounter Start Time: 07:20 Patient seen and examined. No new complaints. No overnight events - Objective Resuscitation Status - Order Detail: 01/13/19 17:12 Resuscitation Status Routine Resuscitation Status: FULL: Full Resuscitation MAR Reviewed: Yes Vital Signs & Weight: Vital Signs (12 hours) Temp Pulse Resp BP Pulse Ox 01/16/19 07:46 97.9 F 72 16 149/81 H 97 01/16/19 05:17 98 F 75 16 123/72 96 01/16/19 00:10 98.2 F 75 21 H 109/53 L 96 Weight Weight 139 lb 6.4 oz I&O: 01/15/19 01/16/19 01/17/19 06:59 06:59 06:59 Intake Total 2777 1562 Output Total 900 2075 Balance 1877 -513 Result Diagrams: 01/16/19 06:42 01/16/19 06:42 Additional Labs: Accuchecks 01/16/19 01/15/19 01/15/19 05:16 20:08 16:24 POC Glucose 94 129 H 86 01/15/19 11:45 POC Glucose 180 H Phys Exam - Physical Examination Constitutional: NAD HEENT: PERRLA, moist MMs, sclera anicteric Neck: no JVD, supple Respiratory: no wheezing, no rales, no rhonchi Cardiovascular: RRR, no significant murmur, no rub Gastrointestinal: soft, non-tender, no distention, positive bowel sounds suprapubic catheter Musculoskeletal: no edema, pulses present Neurological: non-focal, normal sensation Lymphatic: no nodes Psychiatric: normal affect, A&O x 3 Skin: no rash, normal turgor Dx/Plan (1) Acute worsening of stage 3 chronic kidney disease Code(s): N18.3 - CHRONIC KIDNEY DISEASE, STAGE 3 (MODERATE) Status: Acute (2) Catheter-associated urinary tract infection Code(s): T83.511A - I/I REACT D/T INDWELLING URETHRAL CATHETER, INIT; N39.0 - URINARY TRACT INFECTION, SITE NOT SPECIFIED Status: Acute Qualifiers: Comment: suprapubic catheter, infection and sepsis present on admission (3) Lactic acidosis Code(s): E87.2 - ACIDOSIS Status: Acute (4) Physical deconditioning Code(s): R53.81 - OTHER MALAISE Status: Acute Comment: (5) Sepsis with acute organ dysfunction Code(s): A41.9 - SEPSIS, UNSPECIFIED ORGANISM; R65.20 - SEVERE SEPSIS WITHOUT SEPTIC SHOCK Status: Acute (6) Anxiety and depression Code(s): F41.9 - ANXIETY DISORDER, UNSPECIFIED; F32.9 - MAJOR DEPRESSIVE DISORDER, SINGLE EPISODE, UNSPECIFIED Status: Chronic (7) Chronic anemia Code(s): D64.9 - ANEMIA, UNSPECIFIED Status: Chronic (8) DM2 (diabetes mellitus, type 2) Status: Chronic Qualifiers: (9) Dyslipidemia Code(s): E78.5 - HYPERLIPIDEMIA, UNSPECIFIED Status: Chronic (10) History of colon cancer Code(s): Z85.038 - PERSONAL HISTORY OF MALIGNANT NEOPLASM OF LARGE INTESTINE Status: Chronic (11) History of lung cancer Code(s): Z85.118 - PERSONAL HISTORY OF MALIGNANT NEOPLASM OF BRONCHUS AND LUNG Status: Chronic (12) Hypertension Code(s): I10 - ESSENTIAL (PRIMARY) HYPERTENSION Status: Chronic Qualifiers: Comment: controlled (13) Hypothyroidism Code(s): E03.9 - HYPOTHYROIDISM, UNSPECIFIED Status: Chronic - Plan cont current plan of care, continue antibiotics * DC IVF * continue rocephin * plan for discharge tomorrow * medication reviewed as below * symptomatic treatment. Review of Systems - Review of Systems ENT: negative: Ear Pain, Ear Discharge, Nose Pain, Nose Discharge, Nose Congestion, Mouth Pain, Mouth Swelling, Throat Pain, Throat Swelling, Other Respiratory: negative: Cough, Dry, Shortness of Breath, Hemoptysis, SOB with Excertion, Pleuritic Pain, Sputum, Wheezing Cardiovascular: negative: chest pain, palpitations, orthopnea, paroxysmal nocturnal dyspnea, edema, light headedness, other Gastrointestinal: negative: Nausea, Vomiting, Abdominal Pain, Diarrhea, Constipation, Melena, Hematochezia, Other Genitourinary: negative: Dysuria, Frequency, Incontinence, Hematuria, Retention , Other Musculoskeletal: negative: Neck Pain, Shoulder Pain, Arm Pain, Back Pain, Hand Pain, Leg Pain, Foot Pain, Other - Medications/Allergies Allergies/Adverse Reactions: Allergies Allergy/AdvReac Type Severity Reaction Status Date / Time acetaminophen [From Tylenol] Allergy Verified 05/29/17 02:09 codeine Allergy Verified 01/13/19 15:17 Medications: Current Medications Albuterol Sulfate (Proventil Hfa) 2 puff INH Q4H PRN PRN Reason: Dyspnea Atorvastatin Calcium (Lipitor) 20 mg PO HS [facility] Last Admin: 01/15/19 20:16 Dose: 20 mg Calcitriol (Rocaltrol) 0.25 mcg PO DAILY [facility] Last Admin: 01/16/19 08:58 Dose: 0.25 mcg Carvedilol (Coreg) 3.125 mg PO BID [facility] Last Admin: 01/16/19 08:58 Dose: 3.125 mg Dextrose/Water (Dextrose 50%) 25 gm SLOW IVP PRN PRN PRN Reason: Hypoglycemia Famotidine (Pepcid) 20 mg PO BID [facility] Last Admin: 01/16/19 08:58 Dose: 20 mg Ferrous Gluconate (Fergon) 324 mg PO BID-[facility] Last Admin: 01/16/19 08:58 Dose: 324 mg Glucagon (Glucagon) 1 mg IM PRN PRN PRN Reason: Hypoglycemia Ceftriaxone Sodium 2 gm/ (Sodium Chloride) 100 mls @ 200 mls/hr IVPB Q24HR [facility] Last Admin: 01/15/19 15:25 Dose: 100 mls Dextrose/Water (D5w) 1,000 mls @ 0 mls/hr IV .Q0M PRN PRN Reason: Hypoglycemia Sodium Chloride (Normal Saline 0.9%) 1,000 mls @ 100 mls/hr IV .Q10H [facility] Last Admin: 01/16/19 05:27 Dose: 1,000 mls Insulin Human Lispro (Humalog) 0 units SC .MILD SLIDING SCALE PRN PRN Reason: Mild Correctional Scale Insulin Human Lispro (Humalog) 0 units SC .BEDTIME SLIDING SC PRN PRN Reason: Bedtime Correctional Scale Levothyroxine Sodium (Synthroid) 200 mcg PO 0600 [facility] Last Admin: 01/16/19 05:28 Dose: 200 mcg Ondansetron HCl (Zofran Odt) 4 mg PO Q6H PRN PRN Reason: Nausea/Vomiting Ondansetron HCl (Zofran) 4 mg IVP Q6H PRN PRN Reason: Nausea/Vomiting Last Admin: 01/15/19 20:12 Dose: 4 mg Oxybutynin Chloride (Ditropan) 10 mg PO DAILY [facility] Last Admin: 01/16/19 08:58 Dose: 10 mg Sertraline HCl (Zoloft) 50 mg PO HS [facility] Last Admin: 01/15/19 20:16 Dose: 50 mg Tramadol HCl (Ultram) 50 mg PO TID PRN PRN Reason: Pain Last Admin: 01/16/19 05:32 Dose: 50 mg
[2019-01-16] MEDS: cefTRIAXone\\ROCEPHIN 2 GM in Sodium Chloride 0.9% 100 ML IVPB SCH (14:25)
[2019-01-16] MEDS: Ondansetron ODT 4 MG TAB PO PRN (17:06)
[2019-01-16] MEDS: Atorvastatin Calcium 20 MG TAB PO SCH (20:17)
[2019-01-17] MEDS: traMADol HCl 50 MG TAB PO PRN (05:36)
[2019-01-17] MEDS: Ondansetron ODT 4 MG TAB PO PRN (05:36)
[2019-01-17] MEDS: Levothyroxine 150 MCG TAB PO SCH (05:37)
[2019-01-17 07:53] LABS: Anion Gap 12 mmol/L (10-20); BUN (Urea Nitrogen) 22 mg/dL (8.4-25.7); Calc. Creatinine Clearance 20 mL/min (70-130); Carbon Dioxide 22 mmol/L (23-31); Chloride 109 mmol/L (98-107); Estimated GFR-MDRD 22; Glucose 98 mg/dL (83-110); Potassium 4.1 mmol/L (3.5-5.1); Sodium 139 mmol/L (136-145)
[2019-01-17] MEDS: Ferrous Gluconate 324 MG TAB PO SCH (09:34)
[2019-01-17] MEDS: Famotidine 20 MG TAB PO SCH (09:35)
[2019-01-17] MEDS: Oxybutynin 5 MG TAB PO SCH (09:35)
[2019-01-17] MEDS: Calcitriol 0.25 MCG CAP PO SCH (09:36)
[2019-01-17] MEDS: Carvedilol 3.125 MG TAB PO SCH (09:36)
--- NOTE | 2019-01-17 10:57 | DIS ---
DATE OF ADMISSION: 01/13/2019 DATE OF DISCHARGE: 01/17/2019 PRIMARY CARE PHYSICIAN: Mynor Griffin MD DISCHARGE DISPOSITION: Home. PRIMARY DISCHARGE DIAGNOSES: Acute on chronic kidney failure; baseline chronic kidney disease, stage 3; catheter associated urinary tract infection; lactic acidosis; chronic physical deconditioning; sepsis with acute organ dysfunction. SECONDARY DISCHARGE DIAGNOSES: Hypothyroidism; hypertension; history of lung cancer; history of colon cancer; dyslipidemia; diabetes type 2; chronic anemia; anxiety and depression; chronic kidney disease, stage 3; physical deconditioning. PRIMARY PROCEDURE/OPERATION: None. RADIOLOGICAL INVESTIGATIONS: None. SIGNIFICANT LABORATORY DATA: WBC 9.7, hemoglobin 10.2, and platelet 268. Sodium 139, creatinine 2.81, and calcium 8.0. Urinalysis suggestive UTI. Urine culture grew E. coli and Enterococcus faecalis. DISCHARGE MEDICATIONS: 1. Omnicef 300 mg p.o. daily. 2. ProAir HFA 2 puffs q.6 hourly p.r.n. 3. Lipitor 20 mg at bedtime. 4. Calcitriol 0.25 mcg p.o. daily. 5. Coreg 3.125 mg b.i.d. 6. Nexium 40 mg daily. 7. Synthroid 200 mcg daily. 8. Ditropan 10 mg daily. 9. Zoloft 50 mg at bedtime. 10. Tramadol 50 mg t.i.d. p.r.n. 11. Ferrous sulfate 325 mg p.o. b.i.d. CONTRAINDICATION: None. CODE STATUS: Full code. INPATIENT ENVIRONMENTAL SERVICE AIDE: None. ALLERGIES: ACETAMINOPHEN AND CODEINE. DISCHARGE PLAN: Posthospital, the patient will follow up with primary care physician in 1 week. Primary care physician requested to repeat thyroid function test. HOSPITAL COURSE: A 78-year-old male with above-mentioned medical problems, who was admitted by Dr. Segovia. Please see his H and P for further details. The patient was admitted for urinary tract infection. This patient has chronic suprapubic catheter. He was having leukocytosis. He was having nausea, vomiting, and generalized weakness. The patient was admitted to medical floor and he was treated with Rocephin while in hospital for a catheter-related urinary tract infection. While in the hospital, he was given IV fluid and his renal function improved to normal. His lactic acidosis also resolved. While in hospital, we noted that his kidney number was slightly up from his baseline and that was also improved to baseline with IV fluid. His hypothyroidism was not well controlled and that is why we provided patient education about taking Synthroid with empty stomach, and necessary patient education about levothyroxine was given. The primary care physician will repeat thyroid function test upon followup visit. At that time, they will decide whether we need to increase levothyroxine dose or not. On discharge, we are changing to Omnicef. The patient is afebrile while in hospital. He is tolerating p.o. well and hemodynamically stable. The patient is seen and examined at bedside today. All review of systems reviewed with him and negative. His physical examination is essentially unremarkable. His lungs and cardiac examinations are normal. His vitals are stable. The patient is medically stable. Job ID: [id number]
[2019-01-17] MEDS: cefTRIAXone\\ROCEPHIN 2 GM in Sodium Chloride 0.9% 100 ML IVPB SCH (12:33)
[2019-01-17 16:23] VITALS: BP 120/81; TEMP 98.2
== END 2019-01-17 16:21 | disposition home or self-care (01) | DRG 698 ==
LOC: ERS 11:33 → T4-B 14:05
PROVIDERS: ADMIT Family Medicine; ATTEND Family Medicine
DX: T83.511A Infection and inflammatory reaction due to indwelling urethral catheter, initial encounter (principal); A41.51 Sepsis due to Escherichia coli [E. coli]; E87.2 Acidosis; N39.0 Urinary tract infection, site not specified; F41.9 Anxiety disorder, unspecified; F32.9 Major depressive disorder, single episode, unspecified; E78.5 Hyperlipidemia, unspecified; Z85.118 Personal history of other malignant neoplasm of bronchus and lung; E03.9 Hypothyroidism, unspecified; N18.3 Chronic kidney disease, stage 3 (moderate); I12.9 Hypertensive chronic kidney disease with stage 1 through stage 4 chronic kidney disease, or unspecified chronic kidney disease; D63.1 Anemia in chronic kidney disease; Z85.038 Personal history of other malignant neoplasm of large intestine
CPT/HCPCS: 36415; 36416; 80048; 80053; 80202; 81003; 81015; 83605; 83690; 84439; 84443; 85007; 85025; 85027; 87040; 87077; 87086; 87186; 96374; J0696; J2405; J3370; J7050; Q0162

== ENCOUNTER 2019-03-07 19:29 | Inpatient (IN) | payer MEDICARE, MEDICAID ==
[2019-03-07 20:22] LABS: Bilirubin Negative (Negative); Blood, Urine Large (Negative); Clarity Turbid (Clear); Glucose, Urine (Dipstick) Negative (Negative); Leukocyte Large (Negative); Nitrite Positive (Negative); Protein, Urine (Dipstick) > or equal to 300 mg/dL (Neg-Trace); Urobilinogen 0.2 mg/dL (0.2-1.0); pH, Urine 6.5 (5.0-9.0)
[2019-03-07 20:25] LABS: Bacteria/HPF 4+ HPF (None Seen); Hyaline Casts/LPF NONE SEEN LPF (0-3 Hyaline); RBC/HPF GREATER THAN 50-TNTC HPF (0-3); Squamous Epithelial 0-3 HPF (0-3)
[2019-03-07 20:56] LABS: Band 2 % (5-11); Hemoglobin 12.1 g/dL (14.0-18.0); Lymphocytes 17 % (21-51); MDiff Complete? YES; Mean Corpuscular HGB CONC 31.8 g/dL (32.0-36.0); Mean Corpuscular Hemoglobin 29.6 pg (27.0-31.0); Mean Corpuscular Volume 93.2 fL (78.0-98.0); Mean Platelet Volume 6.7 fL (7.4-10.4); Monocytes 3 % (0-10); Neutrophil 78 % (42-75); Platelet Count 297 thou/uL (130-400); Platelet Morphology Comment Appears Adequate; RBC Distribution Width 15.4 % (11.5-14.5); Red Blood Cell (RBC) Count 4.07 mill/uL (4.70-6.10); White Blood Cell (WBC) Count 20.9 thou/uL (4.8-10.8)
[2019-03-07 20:59] LABS: ALT (SGPT) 30 U/L (8-55); AST (SGOT) 56 U/L (5-34); Albumin 2.2 g/dL (3.4-4.8); Alkaline Phosphatase 220 U/L (40-150); Anion Gap 15 mmol/L (10-20); BUN (Urea Nitrogen) 50 mg/dL (8.4-25.7); Bilirubin, Total 0.4 mg/dL (0.2-1.2); Calc. Creatinine Clearance 0 mL/min (70-130); Calcium 8.7 mg/dL (7.8-10.44); Carbon Dioxide 25 mmol/L (23-31); Chloride 98 mmol/L (98-107); Estimated GFR-MDRD 15; Globulin 6.6 g/dL (2.4-3.5); Glucose 131 mg/dL (83-110); Potassium 3.7 mmol/L (3.5-5.1); Protein, Total 8.8 g/dL (5.8-8.1); Sodium 134 mmol/L (136-145)
[2019-03-07 21:21] LABS: CKMB 1.8 ng/mL (0-6.6)
[2019-03-07] MEDS ORDERED: cefTRIAXone\\ROCEPHIN 2 GM VIAL ONE (22:30)
[2019-03-07] MEDS ORDERED: Acetaminophen 325 MG TAB ONE ×2 (22:30→23:37)
[2019-03-07] MEDS ORDERED: Sodium Chloride 0.9% 100 ML ONE (22:30)
[2019-03-07] MEDS ORDERED: Aspirin Chewable 81 MG TAB ONE (23:37)
[2019-03-08] MEDS ORDERED: Bisacodyl 5 MG TAB PO PRN (00:13)
[2019-03-08] MEDS ORDERED: HumaLOG 300 UNITS/3 ML VIAL SC PRN (00:30)
[2019-03-08] MEDS ORDERED: Dextrose 50% Abboject 50 ML SYRINGE SLOW IVP PRN (00:30)
[2019-03-08] MEDS ORDERED: Dextrose 5% in Water 1,000 ML IV PRN (00:30)
[2019-03-08 00:46] LABS: Troponin I 0.092 ng/mL (< 0.028)
[2019-03-08 00:53] LABS: Lactic Acid 1.6 mmol/L (0.5-2.2)
--- NOTE | 2019-03-08 01:09 | HP ---
PRIMARY CARE PROVIDER: Mynor Griffin MD CHIEF COMPLAINT: Cloudy urine. HISTORY OF PRESENT ILLNESS: Mr. Saeed freire is a pleasant 78-year-old gentleman who was seen at [facility] on March 07, 2019. The patient is able to provide history. Collateral history was also obtained from review of medical records and discussion with the patient's family members in the room. Mr. Saeed freire was hospitalized at this facility from March 15 to of this year for acute on chronic kidney failure and catheter-associated urinary tract infection. He has a history of chronic suprapubic catheter, which is changed every month. It was last changed 3 days ago. The patient's family noticed that the urine in the catheter, which is usually clear, started getting cloudy. The patient has also been weak since then and dizzy with getting up. There are no history of fevers. The patient has not been eating well for the last 3 days due to poor appetite. He denies any nausea, vomiting, or diarrhea. He denies any abdominal pain. He was brought to the emergency room because of cloudy urine in the suprapubic catheter. REVIEW OF SYSTEMS: All other systems reviewed and found to be negative. PAST MEDICAL HISTORY: Chronic indwelling suprapubic catheter; recurrent urinary tract infection; history of colon cancer, status post chemotherapy and radiation; diabetes mellitus, type 2; dyslipidemia; hypertension; lung carcinoma, status post radiation; chronic bilateral renal cysts; hypothyroidism; depression; and colovesical fistula. PAST SURGICAL HISTORY: Suprapubic catheter placement, coronary artery bypass graft, colostomy, back surgery, and multiple abdominal surgeries. FAMILY HISTORY: No family history of premature coronary artery disease. SOCIAL HISTORY: The patient denies tobacco use, alcohol use, or recreational drug use. ALLERGIES: ACETAMINOPHEN. CURRENT MEDICATIONS: 1. Nexium 40 mg daily. 2. Oxybutynin 15 mg daily. 3. Sertraline 50 mg daily. 4. Atorvastatin 20 mg daily. 5. Coreg 3.125 mg 2 times a day. 6. ProAir HFA p.r.n. 7. Calcitriol 0.25 mcg daily. 8. Levothyroxine 200 mcg daily. 9. Glipizide 10 mg 2 times a day. 10. Aspirin 81 mg daily. 11. Levemir insulin. 12. Ferrous sulfate 325 mg 2 times a day. PHYSICAL EXAMINATION: GENERAL: On examination, Mr. Saeed freire is awake and alert, not in acute distress. VITAL SIGNS: Blood pressure is 100/55, pulse 90, respiratory rate 23, and oxygen saturation 100% on room air. He is afebrile. EYES: No scleral icterus, no conjunctival pallor. ENT: Moist mucosal membranes. No oropharyngeal erythema or exudates. NECK: Supple, nontender. Trachea is midline. RESPIRATORY: Accessory muscles of breathing are not active. Chest wall movements are symmetric bilaterally. Lungs are clear to auscultation without wheeze, rhonchi, or crepitations. CARDIOVASCULAR: S1 and S2 are heard, regular. Peripheral pulses palpable. No carotid bruit. No pericardial rub. ABDOMEN: Soft, nontender. Left-sided colostomy present, suprapubic catheter present, cloudy urine in suprapubic catheter. NEUROLOGIC: Cranial nerves 2 through 12 intact, deep tendon reflexes 2+. MUSCULOSKELETAL: Power is 5/5 in all 4 extremities. SKIN: No rashes or subcutaneous nodules. LYMPHATIC: No cervical lymphadenopathy. PSYCHIATRIC: Normal mood, normal affect, the patient is oriented to person, place, and time. LABORATORY DATA: Mr. Saeed freire's labs and investigations were reviewed. A 12-lead electrocardiogram showed sinus tachycardia, no ST changes to suggest an acute coronary syndrome. He has leukocytosis with 20,900 white cells, of which 78% are neutrophils. He has normocytic anemia with hemoglobin 12.1. Platelet count is normal. Sodium is mildly decreased at 134. Potassium is normal. Blood urea nitrogen is elevated at 50. Creatinine is elevated at 3.90, last known creatinine was 2.81 on January 17, 2019. Lactic acid is elevated at 2.7. AST is elevated at 56, ALT is normal at 30, and alkaline phosphatase is elevated at 220. Alkaline phosphatase was 158 on January 13, 2019. Albumin is decreased at 2.2. Troponin I is in the indeterminate range at 0.075. Urinalysis is positive for nitrite and leukocyte esterase. ASSESSMENT AND PLAN: Mr. Saeed freire is a pleasant 78-year-old gentleman who was seen at [facility] on March 08, 2019. His problem list includes: 1. Sepsis: Mr. Saeed freire is presenting with sepsis, suspected source of infection in the urine. He will be admitted to the hospital for further management. 2. Urinary tract infection: The patient has catheter-associated urinary tract infection, secondary to chronic suprapubic catheter. Given his recurrent urinary tract infections, we will start the patient on meropenem and deescalate when cultures are available. 3. Acute on chronic stage IV renal failure: Most likely prerenal, given the patient's poor appetite. We will provide intravenous hydration and recheck creatinine. 4. Hyponatremia: Mild, likely asymptomatic. 5. Elevated troponin I: The patient denies any chest pain. Elevated troponin I is most likely secondary to chronic kidney disease. We will recheck troponin I. 6. Elevated AST and alkaline phosphatase: The patient has had elevations of LFTs in the past. We will monitor. 7. Diabetes mellitus, type 2: We will start Accu-Cheks and insulin sliding scale. 8. Dyslipidemia: Continue atorvastatin. 9. Hypertension: Monitor vital signs and titrate antihypertensives as needed. Many thanks for allowing me to participate in your patient's care. Please feel free to contact me with any questions or concerns. LEVEL OF RISK: Moderate. LEVEL OF COMPLEXITY: Moderate. Job ID: [id number]
[2019-03-08] MEDS: Sodium Chloride 0.9% 1,000 ML IV SCH ×2 (01:39→12:58)
[2019-03-08] MEDS: MEROPENEM 1 GM/50 ML 1 GM in Premix Bag 1 BAG IVPB SCH ×3 (01:54→16:07)
[2019-03-08] MEDS: Meropenem 1 GM in Sodium Chloride 0.9% 100 ML IVPB SCH ×2 (02:00→07:11)
[2019-03-08 03:20] LABS: #Eosinphils 0.1 thou/uL (0.0-0.7); #Lymphocytes 1.8 thou/uL (1.20-3.40); #Monocytes 0.4 thou/uL (0.11-0.59); #Neutrophils 16.5 thou/uL (1.40-6.50); %Eosinophils 0.5 % (0.0-10.0); %Lymphocytes 9.8 % (21.0-51.0); %Monocytes 2.3 % (0.0-10.0); %Neutrophils 87.5 % (42.0-75.0); Hemoglobin 10.2 g/dL (14.0-18.0); Mean Corpuscular HGB CONC 32.3 g/dL (32.0-36.0); Mean Corpuscular Hemoglobin 30.3 pg (27.0-31.0); Mean Corpuscular Volume 93.6 fL (78.0-98.0); Mean Platelet Volume 6.6 fL (7.4-10.4); Platelet Count 197 thou/uL (130-400); RBC Distribution Width 15.1 % (11.5-14.5); Red Blood Cell (RBC) Count 3.36 mill/uL (4.70-6.10); White Blood Cell (WBC) Count 18.8 thou/uL (4.8-10.8)
[2019-03-08 03:39] LABS: Anion Gap 15 mmol/L (10-20); BUN (Urea Nitrogen) 46 mg/dL (8.4-25.7); Calc. Creatinine Clearance 0 mL/min (70-130); Calcium 7.8 mg/dL (7.8-10.44); Carbon Dioxide 21 mmol/L (23-31); Chloride 106 mmol/L (98-107); Estimated GFR-MDRD 17; Glucose 100 mg/dL (83-110); Potassium 3.5 mmol/L (3.5-5.1); Sodium 138 mmol/L (136-145)
[2019-03-08] MEDS ORDERED: Prevnar 13-Val Conj/PF 0.5 ML SYRINGE IM ONE (09:00)
[2019-03-08] MEDS ORDERED: Morphine 2 MG/ML SYRINGE SLOW IVP SCH (10:45)
[2019-03-08] MEDS ORDERED: Morphine 2 MG/ML SYRINGE ONE (10:58)
[2019-03-08] MEDS: Heparin 5,000 UNITS/ML VIAL SC SCH ×3 (11:11→19:35)
[2019-03-08 14:39] VITALS: BMI 21.2
[2019-03-08] MEDS ORDERED: PROVENTIL INHALER 6.7 G (200 INHALATIONS) INH PRN (18:24)
--- NOTE | 2019-03-08 18:42 | PDOC.PN ---
- Subjective Encounter Start Date: 03/08/19 Encounter Start Time: 14:30 Subjective: feels better, no sob - Objective Resuscitation Status - Order Detail: 03/08/19 00:13 Resuscitation Status Routine Resuscitation Status: FULL: Full Resuscitation Discussed with: patient and family MAR Reviewed: Yes Vital Signs & Weight: Vital Signs (12 hours) Temp Pulse Resp BP Pulse Ox 03/08/19 16:00 97.7 F 65 18 117/64 90 L 03/08/19 12:00 97.9 F 16 131/74 03/08/19 08:00 94 L Weight Weight 127 lb 13.89 oz I&O: 03/07/19 03/08/19 03/09/19 06:59 06:59 06:59 Intake Total 391 Output Total 250 Balance 141 Result Diagrams: 03/08/19 02:54 03/08/19 02:54 Additional Labs: Accuchecks 03/08/19 03/08/19 16:26 10:37 POC Glucose 92 151 H Phys Exam - Physical Examination HEENT: PERRLA, moist MMs Neck: no JVD, supple Respiratory: no wheezing, no rales Cardiovascular: RRR, no significant murmur Gastrointestinal: soft, non-tender, positive bowel sounds colostomy+ Musculoskeletal: no edema, pulses present Neurological: non-focal, moves all 4 limbs Psychiatric: A&O x 3 Dx/Plan (1) UTI (urinary tract infection) Status: Acute Qualifiers: Urinary tract infection type: catheter-associated UTI Indwelling urinary catheter type: cystostomy catheter Encounter type: subsequent encounter Qualified Code(s): T83.510D - Infection and inflammatory reaction due to cystostomy catheter, subsequent encounter; N39.0 - Urinary tract infection, site not specified (2) Sepsis with acute organ dysfunction Code(s): A41.9 - SEPSIS, UNSPECIFIED ORGANISM; R65.20 - SEVERE SEPSIS WITHOUT SEPTIC SHOCK Status: Acute (3) Acute worsening of stage 3 chronic kidney disease Code(s): N18.3 - CHRONIC KIDNEY DISEASE, STAGE 3 (MODERATE) Status: Acute (4) Anxiety and depression Code(s): F41.9 - ANXIETY DISORDER, UNSPECIFIED; F32.9 - MAJOR DEPRESSIVE DISORDER, SINGLE EPISODE, UNSPECIFIED Status: Chronic (5) Chronic anemia Code(s): D64.9 - ANEMIA, UNSPECIFIED Status: Chronic (6) DM2 (diabetes mellitus, type 2) Status: Chronic Qualifiers: Diabetes mellitus retirement insulin use: without extermination inspector use Diabetes mellitus complication status: with unspecified complications Qualified Code(s) : E11.8 - Type 2 diabetes mellitus with unspecified complications (7) Dyslipidemia Code(s): E78.5 - HYPERLIPIDEMIA, UNSPECIFIED Status: Chronic (8) History of colon cancer Code(s): Z85.038 - PERSONAL HISTORY OF MALIGNANT NEOPLASM OF LARGE INTESTINE Status: Chronic (9) Hypertension Code(s): I10 - ESSENTIAL (PRIMARY) HYPERTENSION Status: Chronic Qualifiers: Comment: controlled (10) Hypothyroidism Code(s): E03.9 - HYPOTHYROIDISM, UNSPECIFIED Status: Chronic Qualifiers: Hypothyroidism type: unspecified Qualified Code(s): E03.9 - Hypothyroidism , unspecified - Plan hemostable now -: gentle iv hydration, nephrology consultation -: is on meropenem, await cultures -: likely has invasive uti with spc+ -: continue coreg, lipitor, synthroid, calcitriol and sertraline * . Review of Systems - Medications/Allergies Allergies/Adverse Reactions: Allergies Allergy/AdvReac Type Severity Reaction Status Date / Time codeine Allergy Verified 03/08/19 01:57 Medications: Current Medications Atorvastatin Calcium (Lipitor) 20 mg PO HS [facility] Bisacodyl (Dulcolax) 10 mg PO DAILYPRN PRN PRN Reason: Constipation Calcitriol (Rocaltrol) 0.25 mcg PO DAILY [facility] Carvedilol (Coreg) 3.125 mg PO BID [facility] Dextrose/Water (Dextrose 50%) 25 gm SLOW IVP PRN PRN PRN Reason: Hypoglycemia Glucagon (Glucagon) 1 mg IM PRN PRN PRN Reason: Hypoglycemia Heparin Sodium (Porcine) (Heparin) 5,000 units SC TID [facility] Last Admin: 03/08/19 16:09 Dose: 5,000 units Sodium Chloride (Normal Saline 0.9%) 1,000 mls @ 75 mls/hr IV .[id number] [facility] Last Admin: 03/08/19 12:58 Dose: 1,000 mls Dextrose/Water (D5w) 1,000 mls @ 0 mls/hr IV .Q0M PRN PRN Reason: Hypoglycemia Meropenem 1 gm/ Device 50 mls @ 100 mls/hr IVPB Q8H [facility] Last Admin: 03/08/19 16:07 Dose: 50 mls Insulin Human Lispro (Humalog) 0 units SC .MILD SLIDING SCALE PRN PRN Reason: Mild Correctional Scale Levothyroxine Sodium (Synthroid) 200 mcg PO DAILY-AC [facility] Non-Formulary Medication (Albuterol Sulfate [Proair Respiclick]) 2 puff .ROUTE Q4HR PRN PRN Reason: SOB &/or Wheezing Non-Formulary Medication (Esomeprazole Magnesium [Nexium]) 40 mg PO DAILY [facility] Non-Formulary Medication (Ferrous Sulfate [Ferrous Sulfate]) 325 mg PO BID [facility] Non-Formulary Medication (Sertraline Hcl [Sertraline Hcl]) 50 mg PO HS [facility] Oxybutynin Chloride (Ditropan) 10 mg PO DAILY [facility] Sodium Chloride (Flush - Normal Saline) 10 ml IVF Q12HR [facility] Last Admin: 03/08/19 10:03 Dose: 10 ml Sodium Chloride (Flush - Normal Saline) 10 ml IVF PRN PRN PRN Reason: Saline Flush
[2019-03-08] MEDS: Atorvastatin Calcium 20 MG TAB PO SCH (19:34)
[2019-03-08] MEDS: Carvedilol 3.125 MG TAB PO SCH (19:35)
[2019-03-09] MEDS: MEROPENEM 1 GM/50 ML 1 GM in Premix Bag 1 BAG IVPB SCH ×3 (01:36→18:02)
[2019-03-09] MEDS: Sodium Chloride 0.9% 1,000 ML IV SCH ×3 (01:39→15:16)
[2019-03-09 06:17] LABS: #Eosinphils 0.3 thou/uL (0.0-0.7); #Lymphocytes 2.1 thou/uL (1.20-3.40); #Monocytes 0.4 thou/uL (0.11-0.59); #Neutrophils 8.1 thou/uL (1.40-6.50); %Basophils 0.1 % (0.0-1.0); %Eosinophils 2.6 % (0.0-10.0); %Lymphocytes 19.5 % (21.0-51.0); %Monocytes 3.8 % (0.0-10.0); %Neutrophils 74.1 % (42.0-75.0); Hemoglobin 8.7 g/dL (14.0-18.0); Mean Corpuscular HGB CONC 31.4 g/dL (32.0-36.0); Mean Corpuscular Hemoglobin 29.7 pg (27.0-31.0); Mean Corpuscular Volume 94.7 fL (78.0-98.0); Mean Platelet Volume 6.4 fL (7.4-10.4); Platelet Count 180 thou/uL (130-400); RBC Distribution Width 15.4 % (11.5-14.5); Red Blood Cell (RBC) Count 2.92 mill/uL (4.70-6.10); White Blood Cell (WBC) Count 10.9 thou/uL (4.8-10.8)
[2019-03-09 06:42] LABS: Albumin 1.5 g/dL (3.4-4.8); Anion Gap 11 mmol/L (10-20); BUN (Urea Nitrogen) 40 mg/dL (8.4-25.7); BUN/Creatinine Ratio 12.54; Calc. Creatinine Clearance 16 mL/min (70-130); Calcium 7.5 mg/dL (7.8-10.44); Carbon Dioxide 21 mmol/L (23-31); Chloride 111 mmol/L (98-107); Estimated GFR-MDRD 19; Glucose 101 mg/dL (83-110); Phosphorus 3.2 mg/dL (2.3-4.7); Sodium 140 mmol/L (136-145)
[2019-03-09 06:45] LABS: Potassium 2.9 mmol/L (3.5-5.1)
[2019-03-09] MEDS: Calcitriol 0.25 MCG CAP PO SCH (07:41)
[2019-03-09] MEDS: Ferrous Sulfate 325 MG TAB PO SCH ×2 (07:42→18:02)
[2019-03-09] MEDS: Carvedilol 3.125 MG TAB PO SCH ×2 (07:42→19:53)
[2019-03-09] MEDS: Heparin 5,000 UNITS/ML VIAL SC SCH ×3 (07:42→19:54)
[2019-03-09] MEDS: Oxybutynin 5 MG TAB PO SCH (07:42)
[2019-03-09] MEDS: Levothyroxine Sodium 100 MCG TAB PO SCH (07:42)
[2019-03-09] MEDS: Potassium Chloride 20 MEQ TAB PO SCH ×2 (08:20→12:05)
[2019-03-09] MEDS ORDERED: Ondansetron PF 4 MG/2 ML Vial IVP PRN (08:43)
[2019-03-09] MEDS ORDERED: traMADol HCl 50 MG TAB PO SCH (14:45)
--- NOTE | 2019-03-09 16:32 | PDOC.PN ---
- Subjective Encounter Start Date: 03/09/19 Encounter Start Time: 16:30 Subjective: feels better.poor appetite -: daughter cares at home .discussed with her - Objective Resuscitation Status - Order Detail: 03/08/19 00:13 Resuscitation Status Routine Resuscitation Status: FULL: Full Resuscitation Discussed with: patient and family MAR Reviewed: Yes Vital Signs & Weight: Vital Signs (12 hours) Temp Pulse Resp BP BP Pulse Ox 03/09/19 12:07 97.7 F 65 16 107/70 100 03/09/19 11:00 97.7 F 65 18 93/57 L 100 03/09/19 07:40 99 03/09/19 07:35 97.6 F 69 18 113/68 99 Weight Admit Weight 127 lb 13.89 oz Weight 127 lb 13.89 oz I&O: 03/08/19 03/09/19 03/10/19 06:59 06:59 06:59 Intake Total 391 1034 Output Total 250 750 Balance 141 284 Result Diagrams: 03/09/19 05:35 03/09/19 05:35 Additional Labs: Accuchecks 03/09/19 03/09/19 03/08/19 11:24 04:57 19:10 POC Glucose 188 H 108 169 H 03/08/19 16:26 POC Glucose 92 Microbiology 03/07/19 20:17 Venous blood - Right Arm Blood Culture - Preliminary Specimen has been received and culture in progress. No Growth to date. 03/07/19 20:17 Venous blood - Left Arm Blood Culture - Preliminary Specimen has been received and culture in progress. No Growth to date. Laboratory Tests 01/17/19 03/07/19 03/08/19 06:52 20:17 02:54 Creatinine 2.81 H 3.90 H 3.56 H Magnesium 03/09/19 03/09/19 05:35 05:35 Creatinine 3.19 H Magnesium 1.6 Phys Exam - Physical Examination Constitutional: NAD HEENT: PERRLA, moist MMs, sclera anicteric, oral pharynx no lesions Neck: no nodes, no JVD, supple, full ROM Respiratory: no wheezing, no rales, no rhonchi, clear to auscultation bilateral Cardiovascular: RRR, no significant murmur, no rub Gastrointestinal: soft, non-tender, no distention, positive bowel sounds colostomy present Musculoskeletal: no edema, pulses present Neurological: non-focal, normal sensation, moves all 4 limbs Psychiatric: normal affect, A&O x 3 Skin: no rash, normal turgor, cap refill <2 seconds Dx/Plan (1) Catheter-associated urinary tract infection Code(s): T83.511A - I/I REACT D/T INDWELLING URETHRAL CATHETER, INIT; N39.0 - URINARY TRACT INFECTION, SITE NOT SPECIFIED Status: Acute Qualifiers: Comment: suprapubic catheter, infection and sepsis present on admission (2) Sepsis with acute organ dysfunction Code(s): A41.9 - SEPSIS, UNSPECIFIED ORGANISM; R65.20 - SEVERE SEPSIS WITHOUT SEPTIC SHOCK Status: Acute Comment: E.coli UTI.improving.monitor.IV meropenam (3) Acute worsening of stage 3 chronic kidney disease Code(s): N18.3 - CHRONIC KIDNEY DISEASE, STAGE 3 (MODERATE) Status: Acute Comment: improving. monitor. 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 use Diabetes mellitus complication status: with unspecified complications Qualified Code(s) : E11.8 - Type 2 diabetes mellitus with unspecified complications (7) Dyslipidemia Code(s): E78.5 - HYPERLIPIDEMIA, UNSPECIFIED Status: Chronic (8) History of colon cancer Code(s): Z85.038 - PERSONAL HISTORY OF MALIGNANT NEOPLASM OF LARGE INTESTINE Status: Chronic (9) History of lung cancer Code(s): Z85.118 - PERSONAL HISTORY OF MALIGNANT NEOPLASM OF BRONCHUS AND LUNG Status: Chronic (10) Hypertension Code(s): I10 - ESSENTIAL (PRIMARY) HYPERTENSION Status: Chronic Qualifiers: Comment: controlled (11) Hypothyroidism Code(s): E03.9 - HYPOTHYROIDISM, UNSPECIFIED Status: Chronic Qualifiers: Hypothyroidism type: unspecified Qualified Code(s): E03.9 - Hypothyroidism , unspecified - Plan continue antibiotics, PT/OT, respiratory therapy, incentive spirometry, out of bed/ambulate, DVT proph w/SCDs clinically better.monitor renal function -: DC when Cr better -: DC Abx per ID -: am labs -: add OT/PT. pt high risk for fall due to weakness. * . Review of Systems - Review of Systems Constitutional: weakness, malaise. negative: fever, chills, sweats, other ENT: negative: Ear Pain, Ear Discharge, Nose Pain, Nose Discharge, Nose Congestion, Mouth Pain, Mouth Swelling, Throat Pain, Throat Swelling, Other Respiratory: negative: Cough, Dry, Shortness of Breath, Hemoptysis, SOB with Excertion, Pleuritic Pain, Sputum, Wheezing Cardiovascular: negative: chest pain, palpitations, orthopnea, paroxysmal nocturnal dyspnea, edema, light headedness, other Gastrointestinal: Nausea Genitourinary: negative: Dysuria, Frequency, Incontinence, Hematuria, Retention , Other Musculoskeletal: negative: Neck Pain, Shoulder Pain, Arm Pain, Back Pain, Hand Pain, Leg Pain, Foot Pain, Other Neurological: negative: Weakness, Numbness, Incoordination, Change in Speech, Confusion, Seizures, Other - Medications/Allergies Allergies/Adverse Reactions: Allergies Allergy/AdvReac Type Severity Reaction Status Date / Time acetaminophen [From Tylenol] Allergy Mild Verified 03/09/19 14:54 codeine Allergy Verified 03/09/19 14:54 Medications: Current Medications Albuterol Sulfate (Proventil Hfa) 2 puff INH Q4H PRN PRN Reason: SOB &/or Wheezing Atorvastatin Calcium (Lipitor) 20 mg PO HS [facility] Last Admin: 03/08/19 19:34 Dose: 20 mg Bisacodyl (Dulcolax) 10 mg PO DAILYPRN PRN PRN Reason: Constipation Calcitriol (Rocaltrol) 0.25 mcg PO DAILY [facility] Last Admin: 03/09/19 07:41 Dose: 0.25 mcg Carvedilol (Coreg) 3.125 mg PO BID [facility] Last Admin: 03/09/19 07:42 Dose: 3.125 mg Dextrose/Water (Dextrose 50%) 25 gm SLOW IVP PRN PRN PRN Reason: Hypoglycemia Ferrous Sulfate (Feosol) 325 mg PO BID[facility] Last Admin: 03/09/19 07:42 Dose: 325 mg Glucagon (Glucagon) 1 mg IM PRN PRN PRN Reason: Hypoglycemia Heparin Sodium (Porcine) (Heparin) 5,000 units SC TID [facility] Last Admin: 03/09/19 14:26 Dose: 5,000 units Sodium Chloride (Normal Saline 0.9%) 1,000 mls @ 75 mls/hr IV .[id number] [facility] Last Admin: 03/09/19 15:16 Dose: Not Given Dextrose/Water (D5w) 1,000 mls @ 0 mls/hr IV .Q0M PRN PRN Reason: Hypoglycemia Meropenem 1 gm/ Device 50 mls @ 100 mls/hr IVPB Q8H [facility] Last Admin: 03/09/19 08:22 Dose: 50 mls Insulin Human Lispro (Humalog) 0 units SC .MILD SLIDING SCALE PRN PRN Reason: Mild Correctional Scale Levothyroxine Sodium (Synthroid) 200 mcg PO DAILY-AC [facility] Last Admin: 03/09/19 07:42 Dose: 200 mcg Ondansetron HCl (Zofran) 4 mg IVP Q4H PRN PRN Reason: Nausea/Vomiting Last Admin: 03/09/19 08:47 Dose: 4 mg Oxybutynin Chloride (Ditropan) 10 mg PO DAILY [facility] Last Admin: 03/09/19 07:42 Dose: 10 mg Pantoprazole Sodium (Protonix) 40 mg PO DAILY [facility] Last Admin: 03/09/19 07:42 Dose: 40 mg Sertraline HCl (Zoloft) 50 mg PO HS [facility] Last Admin: 03/08/19 19:35 Dose: 50 mg Sodium Chloride (Flush - Normal Saline) 10 ml IVF Q12HR [facility] Last Admin: 03/09/19 07:43 Dose: Not Given Sodium Chloride (Flush - Normal Saline) 10 ml IVF PRN PRN PRN Reason: Saline Flush
[2019-03-09] MEDS: Atorvastatin Calcium 20 MG TAB PO SCH (19:53)
[2019-03-09] MEDS: traMADol HCl 50 MG TAB PO PRN (21:25)
[2019-03-10] MEDS: MEROPENEM 1 GM/50 ML 1 GM in Premix Bag 1 BAG IVPB SCH ×3 (01:27→17:08)
[2019-03-10] MEDS: Sodium Chloride 0.9% 1,000 ML IV SCH ×3 (03:24→18:00)
[2019-03-10 06:02] LABS: #Eosinphils 0.3 thou/uL (0.0-0.7); #Lymphocytes 2.8 thou/uL (1.20-3.40); #Monocytes 0.4 thou/uL (0.11-0.59); #Neutrophils 5.5 thou/uL (1.40-6.50); %Basophils 0.2 % (0.0-1.0); %Eosinophils 3.2 % (0.0-10.0); %Monocytes 4.6 % (0.0-10.0); Hemoglobin 8.8 g/dL (14.0-18.0); Mean Corpuscular HGB CONC 31.5 g/dL (32.0-36.0); Mean Corpuscular Hemoglobin 30.1 pg (27.0-31.0); Mean Corpuscular Volume 95.6 fL (78.0-98.0); Mean Platelet Volume 6.6 fL (7.4-10.4); Platelet Count 148 thou/uL (130-400); RBC Distribution Width 15.5 % (11.5-14.5); Red Blood Cell (RBC) Count 2.93 mill/uL (4.70-6.10)
[2019-03-10 06:26] LABS: Anion Gap 11 mmol/L (10-20); BUN (Urea Nitrogen) 34 mg/dL (8.4-25.7); Calc. Creatinine Clearance 19 mL/min (70-130); Calcium 7.5 mg/dL (7.8-10.44); Carbon Dioxide 17 mmol/L (23-31); Chloride 113 mmol/L (98-107); Estimated GFR-MDRD 23; Glucose 134 mg/dL (83-110); Potassium 4.3 mmol/L (3.5-5.1); Sodium 135 mmol/L (136-145)
[2019-03-10] MEDS: Carvedilol 3.125 MG TAB PO SCH ×2 (08:28→20:10)
[2019-03-10] MEDS: Heparin 5,000 UNITS/ML VIAL SC SCH ×3 (08:28→20:32)
[2019-03-10] MEDS: Ferrous Sulfate 325 MG TAB PO SCH ×2 (08:28→16:12)
[2019-03-10] MEDS: Oxybutynin 5 MG TAB PO SCH (08:28)
[2019-03-10] MEDS: Calcitriol 0.25 MCG CAP PO SCH (08:28)
[2019-03-10] MEDS: Levothyroxine Sodium 100 MCG TAB PO SCH (08:28)
[2019-03-10] MEDS: traMADol HCl 50 MG TAB PO PRN ×3 (08:33→20:10)
[2019-03-10] MEDS ORDERED: Epoetin (ESRD) 20,000 UNITS/ML SC SCH (09:15)
[2019-03-10] MEDS ORDERED: EPOETIN ALFA-EPBX (ESRD) 10,000 UNIT/ML VIAL SC SCH (09:30)
--- NOTE | 2019-03-10 13:38 | CON ---
DATE OF CONSULTATION: REASON FOR CONSULTATION: Elevated creatinine. HISTORY OF PRESENT ILLNESS: This is a very pleasant 78-year-old gentleman, who was admitted to the hospital for cloudy urine. The patient was admitted for sepsis. His creatinine has currently improved from a peak of 3.9 to 2.7. The patient denies headache, numbness, tingling. Denies any nausea, vomiting, or chest pain. PAST MEDICAL HISTORY: Significant for suprapubic catheter, recurrent UTIs, history of colon cancer received chemotherapy and radiation, chronic bilateral renal cysts, hypothyroidism, depression, history of CABG, colostomy, multiple surgeries. FAMILY HISTORY: Negative for ESRD. ALLERGIES: REVIEWED. HOME MEDICATIONS: List reviewed. SOCIAL HISTORY: No alcohol or drug use. REVIEW OF SYSTEMS: A 15-point review of systems was performed and was negative except for positives noted above. GENERAL: HEAD: NECK: No swelling or lumps. NOSE: No epistaxis or discharge. EYES: No diplopia or pain. 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 NEUROPSYCHIATRIC SYSTEMS: No suicidal ideation. No ideation. SKIN: Denies any rash or ulcer. CONSTITUTIONAL: No fever or chills. PHYSICAL EXAMINATION: See above. CONSTITUTIONAL: Awake, alert, in no acute distress. VITAL SIGNS: Afebrile. Pulse 75, breathing 16, blood pressure 123/66. GENERAL APPEARANCE AND MENTAL STATUS: Fair. HEAD/NECK: Normocephalic. Atraumatic. EYES: EOMI. No deformity. EARS: Clear. No ulcers. NOSE: Intact. No lesions. MOUTH: Clear. No discharge. THROAT: Clear. No exudate. LUNGS: Clear. No crackles. CARDIAC: S1, S2. No rub. ABDOMEN: Benign. Bowel sounds positive. GENITALIA/RECTUM: Mccullough absent. BACK/EXTREMITIES: Edema 0+. NEUROLOGICAL: Alert and motor intact. SKIN: LYMPHATICS: LABORATORY DATA: Reviewed. ASSESSMENT AND PLAN: 1. Chronic kidney disease stage 4, stable. 2. Acute tubular necrosis, improved. 3. Hypertension, stable. 4. Anemia, stable. 5. Medication based on GFR appropriate. Job ID: [id number]
--- NOTE | 2019-03-10 14:15 | PDOC.PN ---
- Subjective Encounter Start Date: 03/10/19 Encounter Start Time: 14:13 Subjective: feels well but very weak -: discussed Rehab/SNIF again but pt unsure.discussed w daughter and she wants -: him to go to snif - Objective Resuscitation Status - Order Detail: 03/08/19 00:13 Resuscitation Status Routine Resuscitation Status: FULL: Full Resuscitation Discussed with: patient and family MAR Reviewed: Yes Vital Signs & Weight: Vital Signs (12 hours) Temp Pulse Resp BP Pulse Ox 03/10/19 08:30 100 03/10/19 07:36 97.8 F 73 18 123/66 100 03/10/19 05:19 97.8 F 71 18 91/54 L 100 Weight Admit Weight 127 lb 13.89 oz Weight 127 lb 13.89 oz I&O: 03/09/19 03/10/19 03/11/19 06:59 06:59 06:59 Intake Total 1034 2745 Output Total 750 910 Balance 284 1835 Result Diagrams: 03/10/19 05:46 03/10/19 05:46 Additional Labs: Accuchecks 03/10/19 03/10/19 03/09/19 11:36 05:16 19:44 POC Glucose 173 H 133 H 149 H 03/09/19 16:32 POC Glucose 132 H Microbiology 03/07/19 20:17 Venous blood - Right Arm Blood Culture - Preliminary NO GROWTH AT 48 HOURS 03/07/19 20:17 Venous blood - Left Arm Blood Culture - Preliminary NO GROWTH AT 48 HOURS 03/07/19 19:49 Urine Suprapubic catheter Urine Culture - Preliminary Escherichia coli Presumptive Pseudomonas Laboratory Tests 03/07/19 03/08/19 03/09/19 20:17 02:54 05:35 Creatinine 3.90 H 3.56 H 3.19 H 03/10/19 05:46 Creatinine 2.76 H Phys Exam - Physical Examination Constitutional: NAD HEENT: PERRLA, moist MMs, sclera anicteric, oral pharynx no lesions Neck: no nodes, no JVD, supple, full ROM Respiratory: no wheezing, no rales, no rhonchi, clear to auscultation bilateral Cardiovascular: RRR, no significant murmur Gastrointestinal: soft, non-tender, no distention, positive bowel sounds colostomy in place Musculoskeletal: no edema, pulses present Neurological: non-focal, normal sensation, moves all 4 limbs Psychiatric: normal affect, A&O x 3 Skin: no rash Dx/Plan (1) Catheter-associated urinary tract infection Code(s): T83.511A - I/I REACT D/T INDWELLING URETHRAL CATHETER, INIT; N39.0 - URINARY TRACT INFECTION, SITE NOT SPECIFIED Status: Acute Qualifiers: Comment: suprapubic catheter, infection and sepsis present on admission.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 monitor. Nephrology also following (4) Physical deconditioning Code(s): R53.81 - OTHER MALAISE Status: Chronic Comment: (5) Chronic anemia Code(s): D64.9 - ANEMIA, UNSPECIFIED Status: Chronic (6) DM2 (diabetes mellitus, type 2) Status: Chronic Qualifiers: Diabetes mellitus chcf insulin use: without chcf use Diabetes mellitus complication status: with unspecified complications Qualified Code(s) : E11.8 - Type 2 diabetes mellitus with unspecified complications (7) Dyslipidemia Code(s): E78.5 - HYPERLIPIDEMIA, UNSPECIFIED Status: Chronic (8) History of colon cancer Code(s): Z85.038 - PERSONAL HISTORY OF MALIGNANT NEOPLASM OF LARGE INTESTINE Status: Chronic (9) History of lung cancer Code(s): Z85.118 - PERSONAL HISTORY OF MALIGNANT NEOPLASM OF BRONCHUS AND LUNG Status: Chronic (10) Hypertension Code(s): I10 - ESSENTIAL (PRIMARY) HYPERTENSION Status: Chronic Qualifiers: Comment: controlled (11) Hypothyroidism Code(s): E03.9 - HYPOTHYROIDISM, UNSPECIFIED Status: Chronic Qualifiers: Hypothyroidism type: unspecified Qualified Code(s): E03.9 - Hypothyroidism , unspecified - Plan continue antibiotics, PT/OT, respiratory therapy, incentive spirometry, DVT proph w/SCDs Renal Fx improving. cont to monitor. on IVF -: Pt high risk for re admission if goes home d/t severe deconditioning -: encouraged to choose SNIF .reports will think about it -: will DC home tomorrow if keeps refusing SNIF. -: HD stable.cont ABx IV till in house * . Review of Systems - Review of Systems Constitutional: weakness, malaise. negative: fever, chills, sweats, other Eyes: negative: Pain, Vision Change, Conjunctivae Inflammation, Eyelid Inflammation, Redness, Other ENT: negative: Ear Pain, Ear Discharge, Nose Pain, Nose Discharge, Nose Congestion, Mouth Pain, Mouth Swelling, Throat Pain, Throat Swelling, Other Respiratory: negative: Cough, Dry, Shortness of Breath, Hemoptysis, SOB with Excertion, Pleuritic Pain, Sputum, Wheezing Cardiovascular: negative: chest pain, palpitations, orthopnea, paroxysmal nocturnal dyspnea, edema, light headedness, other Gastrointestinal: negative: Nausea, Vomiting, Abdominal Pain, Diarrhea, Constipation, Melena, Hematochezia, Other Genitourinary: negative: Dysuria, Frequency, Incontinence, Hematuria, Retention , Other Musculoskeletal: negative: Neck Pain, Shoulder Pain, Arm Pain, Back Pain, Hand Pain, Leg Pain, Foot Pain, Other Skin: negative: Rash, Lesions, Nicko, Bruising, Other Neurological: negative: Weakness, Numbness, Incoordination, Change in Speech, Confusion, Seizures, Other - Medications/Allergies Allergies/Adverse Reactions: Allergies Allergy/AdvReac Type Severity Reaction Status Date / Time acetaminophen [From Tylenol] Allergy Mild Verified 03/09/19 14:54 codeine Allergy Verified 03/09/19 14:54 Medications: Current Medications Albuterol Sulfate (Proventil Hfa) 2 puff INH Q4H PRN PRN Reason: SOB &/or Wheezing Atorvastatin Calcium (Lipitor) 20 mg PO HS [facility] Last Admin: 03/09/19 19:53 Dose: 20 mg Bisacodyl (Dulcolax) 10 mg PO DAILYPRN PRN PRN Reason: Constipation Calcitriol (Rocaltrol) 0.25 mcg PO DAILY [facility] Last Admin: 03/10/19 08:28 Dose: 0.25 mcg Carvedilol (Coreg) 3.125 mg PO BID [facility] Last Admin: 03/10/19 08:28 Dose: 3.125 mg Dextrose/Water (Dextrose 50%) 25 gm SLOW IVP PRN PRN PRN Reason: Hypoglycemia Ferrous Sulfate (Feosol) 325 mg PO BID-WM [facility] Last Admin: 03/10/19 08:28 Dose: 325 mg Glucagon (Glucagon) 1 mg IM PRN PRN PRN Reason: Hypoglycemia Heparin Sodium (Porcine) (Heparin) 5,000 units SC TID [facility] Last Admin: 03/10/19 08:28 Dose: 5,000 units Sodium Chloride (Normal Saline 0.9%) 1,000 mls @ 75 mls/hr IV .[id number] [facility] Last Admin: 03/10/19 03:24 Dose: 1,000 mls Dextrose/Water (D5w) 1,000 mls @ 0 mls/hr IV .Q0M PRN PRN Reason: Hypoglycemia Meropenem 1 gm/ Device 50 mls @ 100 mls/hr IVPB Q8H [facility] Last Admin: 03/10/19 08:29 Dose: 50 mls Insulin Human Lispro (Humalog) 0 units SC .MILD SLIDING SCALE PRN PRN Reason: Mild Correctional Scale Levothyroxine Sodium (Synthroid) 200 mcg PO DAILY-AC [facility] Last Admin: 03/10/19 08:28 Dose: 200 mcg Ondansetron HCl (Zofran) 4 mg IVP Q4H PRN PRN Reason: Nausea/Vomiting Last Admin: 03/09/19 08:47 Dose: 4 mg Oxybutynin Chloride (Ditropan) 10 mg PO DAILY [facility] Last Admin: 03/10/19 08:28 Dose: 10 mg Pantoprazole Sodium (Protonix) 40 mg PO DAILY [facility] Last Admin: 03/10/19 08:28 Dose: 40 mg Sertraline HCl (Zoloft) 50 mg PO HS [facility] Last Admin: 03/09/19 19:53 Dose: 50 mg Sodium Chloride (Flush - Normal Saline) 10 ml IVF Q12HR [facility] Last Admin: 03/10/19 08:28 Dose: 10 ml Sodium Chloride (Flush - Normal Saline) 10 ml IVF PRN PRN PRN Reason: Saline Flush Tramadol HCl (Ultram) 50 mg PO Q4H PRN PRN Reason: Pain Last Admin: 03/10/19 08:33 Dose: 50 mg
[2019-03-10] MEDS: Atorvastatin Calcium 20 MG TAB PO SCH (20:10)
[2019-03-11] MEDS: MEROPENEM 1 GM/50 ML 1 GM in Premix Bag 1 BAG IVPB SCH ×3 (01:23→17:05)
[2019-03-11] MEDS: traMADol HCl 50 MG TAB PO PRN ×3 (01:57→20:36)
[2019-03-11] MEDS: Sodium Chloride 0.9% 1,000 ML IV SCH ×2 (05:37→22:42)
[2019-03-11 07:40] LABS: Anion Gap 11 mmol/L (10-20); BUN (Urea Nitrogen) 31 mg/dL (8.4-25.7); Calc. Creatinine Clearance 20 mL/min (70-130); Calcium 7.9 mg/dL (7.8-10.44); Carbon Dioxide 17 mmol/L (23-31); Chloride 113 mmol/L (98-107); Estimated GFR-MDRD 25; Glucose 144 mg/dL (83-110); Potassium 4.7 mmol/L (3.5-5.1); Sodium 136 mmol/L (136-145)
[2019-03-11] MEDS: Oxybutynin 5 MG TAB PO SCH (08:20)
[2019-03-11] MEDS: Carvedilol 3.125 MG TAB PO SCH ×2 (08:20→20:36)
[2019-03-11] MEDS: Calcitriol 0.25 MCG CAP PO SCH (08:20)
[2019-03-11] MEDS: Levothyroxine Sodium 100 MCG TAB PO SCH (08:20)
[2019-03-11] MEDS: Ferrous Sulfate 325 MG TAB PO SCH ×2 (08:20→17:05)
[2019-03-11] MEDS: Heparin 5,000 UNITS/ML VIAL SC SCH ×3 (08:21→20:40)
[2019-03-11 09:14] LABS: #Eosinphils 0.4 thou/uL (0.0-0.7); #Lymphocytes 2.7 thou/uL (1.20-3.40); #Monocytes 0.4 thou/uL (0.11-0.59); #Neutrophils 4.1 thou/uL (1.40-6.50); %Basophils 0.5 % (0.0-1.0); %Eosinophils 5.3 % (0.0-10.0); %Lymphocytes 35.2 % (21.0-51.0); %Monocytes 4.7 % (0.0-10.0); %Neutrophils 54.3 % (42.0-75.0); Hemoglobin 9.1 g/dL (14.0-18.0); Mean Corpuscular HGB CONC 30.6 g/dL (32.0-36.0); Mean Corpuscular Hemoglobin 28.8 pg (27.0-31.0); Mean Platelet Volume 7.3 fL (7.4-10.4); Platelet Count 132 thou/uL (130-400); RBC Distribution Width 15.5 % (11.5-14.5); Red Blood Cell (RBC) Count 3.16 mill/uL (4.70-6.10); White Blood Cell (WBC) Count 7.6 thou/uL (4.8-10.8)
--- NOTE | 2019-03-11 10:06 | PRG ---
DATE OF SERVICE: 03/11/2019 SUBJECTIVE: A 78-year-old gentleman being seen for acute kidney injury. The patient denied any nausea, vomiting, or chest pain. OBJECTIVE: See above. CONSTITUTIONAL: Awake, alert, in no acute distress. VITAL SIGNS: Afebrile. Pulse 69, breathing 16, and blood pressure 104/65. GENERAL APPEARANCE AND MENTAL STATUS: Fair. HEAD/NECK: Normocephalic. Atraumatic. EYES: EOMI. No deformity. EARS: Clear. No ulcers. NOSE: Intact. No lesions. MOUTH: Clear. No discharge. THROAT: Clear. No exudate. LUNGS: Clear. No crackles. CARDIAC: S1, S2. No rub. ABDOMEN: Benign. Bowel sounds positive. GENITALIA/RECTUM: Mccullough absent. BACK/EXTREMITIES: Edema 0+. NEUROLOGICAL: Alert and motor intact. SKIN: LYMPHATICS: LABORATORY DATA: Reviewed. ASSESSMENT: 1. Chronic kidney disease, stage 4, stable. Acute kidney injury . 2. Hypertension, stable. 3. Anemia, stable. 4. Metabolic acidosis, stable. PLAN: No indication for dialysis. Job ID: [id number]
--- NOTE | 2019-03-11 14:29 | PDOC.PN ---
- Subjective Encounter Start Date: 03/11/19 Encounter Start Time: 14:27 Subjective: feels about the same.no more N/V/D -: urine still looks cloudy - Objective Resuscitation Status - Order Detail: 03/08/19 00:13 Resuscitation Status Routine Resuscitation Status: FULL: Full Resuscitation Discussed with: patient and family MAR Reviewed: Yes Vital Signs & Weight: Vital Signs (12 hours) Temp Pulse Resp BP Pulse Ox 03/11/19 08:38 97.6 F 69 18 104/65 100 03/11/19 08:00 100 Weight Admit Weight 127 lb 13.89 oz Weight 127 lb 13.89 oz I&O: 03/10/19 03/11/19 03/12/19 06:59 06:59 06:59 Intake Total 2745 2528 Output Total 910 1120 Balance 1835 1408 Result Diagrams: 03/11/19 07:58 03/11/19 07:04 Additional Labs: Accuchecks 03/11/19 03/11/19 03/10/19 11:32 05:18 20:11 POC Glucose 165 H 145 H 120 H 03/10/19 16:53 POC Glucose 149 H Microbiology 03/07/19 20:17 Venous blood - Right Arm Blood Culture - Preliminary NO GROWTH AT 48 HOURS 03/07/19 20:17 Venous blood - Left Arm Blood Culture - Preliminary NO GROWTH AT 48 HOURS 03/07/19 19:49 Urine Suprapubic catheter Urine Culture - Preliminary Escherichia coli Pseudomonas aeruginosa Phys Exam - Physical Examination Constitutional: NAD HEENT: PERRLA, moist MMs, sclera anicteric, oral pharynx no lesions Neck: no nodes, no JVD, supple, full ROM Respiratory: no wheezing, no rales, no rhonchi, clear to auscultation bilateral Cardiovascular: RRR, no significant murmur Gastrointestinal: soft, non-tender, no distention, positive bowel sounds ostomy in place Musculoskeletal: no edema, pulses present Neurological: non-focal, normal sensation, moves all 4 limbs Psychiatric: normal affect, A&O x 3 Skin: no rash Dx/Plan (1) Catheter-associated urinary tract infection Code(s): T83.511A - I/I REACT D/T INDWELLING URETHRAL CATHETER, INIT; N39.0 - URINARY TRACT INFECTION, SITE NOT SPECIFIED Status: Acute Qualifiers: Comment: suprapubic catheter, infection and sepsis present on admission.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 monitor. Nephrology also following (4) Physical deconditioning Code(s): R53.81 - OTHER MALAISE Status: Chronic Comment: (5) Chronic anemia Code(s): D64.9 - ANEMIA, UNSPECIFIED Status: Chronic (6) DM2 (diabetes mellitus, type 2) Status: Chronic Qualifiers: Diabetes mellitus assisted insulin use: without assisted use Diabetes mellitus complication status: with unspecified complications Qualified Code(s) : E11.8 - Type 2 diabetes mellitus with unspecified complications (7) Dyslipidemia Code(s): E78.5 - HYPERLIPIDEMIA, UNSPECIFIED Status: Chronic (8) History of colon cancer Code(s): Z85.038 - PERSONAL HISTORY OF MALIGNANT NEOPLASM OF LARGE INTESTINE Status: Chronic Comment: colostomy in place (9) History of lung cancer Code(s): Z85.118 - PERSONAL HISTORY OF MALIGNANT NEOPLASM OF BRONCHUS AND LUNG Status: Chronic (10) Hypertension Code(s): I10 - ESSENTIAL (PRIMARY) HYPERTENSION Status: Chronic Qualifiers: Comment: controlled (11) Hypothyroidism Code(s): E03.9 - HYPOTHYROIDISM, UNSPECIFIED Status: Chronic Qualifiers: Hypothyroidism type: unspecified Qualified Code(s): E03.9 - Hypothyroidism , unspecified - Plan continue antibiotics, PT/OT, respiratory therapy, incentive spirometry, out of bed/ambulate, DVT proph w/SCDs SNIF eval. -: cont care as above -: still on saline as PO intake very poor. encouraged.ensure TID -: will have SP cathter irrigated * . Review of Systems - Review of Systems Constitutional: weakness, malaise. negative: fever, chills, sweats, other Respiratory: negative: Cough, Dry, Shortness of Breath, Hemoptysis, SOB with Excertion, Pleuritic Pain, Sputum, Wheezing Cardiovascular: negative: chest pain, palpitations, orthopnea, paroxysmal nocturnal dyspnea, edema, light headedness, other Gastrointestinal: negative: Nausea, Vomiting, Abdominal Pain, Diarrhea, Constipation, Melena, Hematochezia, Other Genitourinary: negative: Dysuria, Frequency, Incontinence, Hematuria, Retention , Other Musculoskeletal: negative: Neck Pain, Shoulder Pain, Arm Pain, Back Pain, Hand Pain, Leg Pain, Foot Pain, Other Neurological: negative: Weakness, Numbness, Incoordination, Change in Speech, Confusion, Seizures, Other - Medications/Allergies Allergies/Adverse Reactions: Allergies Allergy/AdvReac Type Severity Reaction Status Date / Time acetaminophen [From Tylenol] Allergy Mild Verified 03/09/19 14:54 codeine Allergy Verified 03/09/19 14:54 Medications: Current Medications Albuterol Sulfate (Proventil Hfa) 2 puff INH Q4H PRN PRN Reason: SOB &/or Wheezing Atorvastatin Calcium (Lipitor) 20 mg PO HS [facility] Last Admin: 03/10/19 20:10 Dose: 20 mg Bisacodyl (Dulcolax) 10 mg PO DAILYPRN PRN PRN Reason: Constipation Calcitriol (Rocaltrol) 0.25 mcg PO DAILY [facility] Last Admin: 03/11/19 08:20 Dose: 0.25 mcg Carvedilol (Coreg) 3.125 mg PO BID [facility] Last Admin: 03/11/19 08:20 Dose: 3.125 mg Dextrose/Water (Dextrose 50%) 25 gm SLOW IVP PRN PRN PRN Reason: Hypoglycemia Ferrous Sulfate (Feosol) 325 mg PO BID-[facility] Last Admin: 03/11/19 08:20 Dose: 325 mg Glucagon (Glucagon) 1 mg IM PRN PRN PRN Reason: Hypoglycemia Heparin Sodium (Porcine) (Heparin) 5,000 units SC TID [facility] Last Admin: 03/11/19 08:21 Dose: 5,000 units Sodium Chloride (Normal Saline 0.9%) 1,000 mls @ 75 mls/hr IV .[id number] [facility] Last Admin: 03/11/19 05:37 Dose: 1,000 mls Dextrose/Water (D5w) 1,000 mls @ 0 mls/hr IV .Q0M PRN PRN Reason: Hypoglycemia Meropenem 1 gm/ Device 50 mls @ 100 mls/hr IVPB Q8H [facility] Last Admin: 03/11/19 08:21 Dose: 50 mls Insulin Human Lispro (Humalog) 0 units SC .MILD SLIDING SCALE PRN PRN Reason: Mild Correctional Scale Levothyroxine Sodium (Synthroid) 200 mcg PO DAILY-[facility] Last Admin: 03/11/19 08:20 Dose: 200 mcg Ondansetron HCl (Zofran) 4 mg IVP Q4H PRN PRN Reason: Nausea/Vomiting Last Admin: 03/09/19 08:47 Dose: 4 mg Oxybutynin Chloride (Ditropan) 10 mg PO DAILY [facility] Last Admin: 03/11/19 08:20 Dose: 10 mg Pantoprazole Sodium (Protonix) 40 mg PO DAILY [facility] Last Admin: 03/11/19 08:20 Dose: 40 mg Sertraline HCl (Zoloft) 50 mg PO HS [facility] Last Admin: 03/10/19 20:10 Dose: 50 mg Sodium Chloride (Flush - Normal Saline) 10 ml IVF Q12HR [facility] Last Admin: 03/11/19 08:21 Dose: Not Given Sodium Chloride (Flush - Normal Saline) 10 ml IVF PRN PRN PRN Reason: Saline Flush Tramadol HCl (Ultram) 50 mg PO Q4H PRN PRN Reason: Pain Last Admin: 03/11/19 08:24 Dose: 50 mg
[2019-03-11] MEDS: Atorvastatin Calcium 20 MG TAB PO SCH (20:35)
[2019-03-12] MEDS: MEROPENEM 1 GM/50 ML 1 GM in Premix Bag 1 BAG IVPB SCH ×3 (01:03→16:18)
[2019-03-12 06:55] LABS: #Eosinphils 0.4 thou/uL (0.0-0.7); #Lymphocytes 2.6 thou/uL (1.20-3.40); #Monocytes 0.5 thou/uL (0.11-0.59); #Neutrophils 4.8 thou/uL (1.40-6.50); %Basophils 0.1 % (0.0-1.0); %Eosinophils 5.2 % (0.0-10.0); %Lymphocytes 30.9 % (21.0-51.0); %Monocytes 5.4 % (0.0-10.0); %Neutrophils 58.4 % (42.0-75.0); Hemoglobin 8.7 g/dL (14.0-18.0); Mean Corpuscular Hemoglobin 29.4 pg (27.0-31.0); Mean Corpuscular Volume 95.1 fL (78.0-98.0); Mean Platelet Volume 6.7 fL (7.4-10.4); Platelet Count 158 thou/uL (130-400); RBC Distribution Width 15.3 % (11.5-14.5); Red Blood Cell (RBC) Count 2.95 mill/uL (4.70-6.10); White Blood Cell (WBC) Count 8.3 thou/uL (4.8-10.8)
[2019-03-12 07:12] LABS: Anion Gap 10 mmol/L (10-20); BUN (Urea Nitrogen) 26 mg/dL (8.4-25.7); Calc. Creatinine Clearance 22 mL/min (70-130); Calcium 7.9 mg/dL (7.8-10.44); Carbon Dioxide 19 mmol/L (23-31); Chloride 112 mmol/L (98-107); Estimated GFR-MDRD 27; Glucose 112 mg/dL (83-110); Potassium 4.2 mmol/L (3.5-5.1); Sodium 137 mmol/L (136-145)
[2019-03-12] MEDS: Carvedilol 3.125 MG TAB PO SCH ×2 (07:57→21:19)
[2019-03-12] MEDS: Oxybutynin 5 MG TAB PO SCH (07:57)
[2019-03-12] MEDS: Calcitriol 0.25 MCG CAP PO SCH (07:57)
[2019-03-12] MEDS: Ferrous Sulfate 325 MG TAB PO SCH ×2 (07:57→16:18)
[2019-03-12] MEDS: Heparin 5,000 UNITS/ML VIAL SC SCH ×3 (07:58→21:19)
[2019-03-12] MEDS: Levothyroxine Sodium 100 MCG TAB PO SCH (07:58)
--- NOTE | 2019-03-12 11:35 | PRG ---
DATE OF SERVICE: 03/12/2019 SUBJECTIVE: Patient was seen and examined at bedside and overnight events noted. Patient denies any shortness of breath or chest pain or palpitation. No history of nausea or vomiting or diarrhea or fever or chills or cramps. OBJECTIVE: GENERAL: This is a well-built male, in no apparent distress. VITAL SIGNS: Temperature 97.5. Heart rate 75. Respiratory rate 18. Blood pressure 127/70. HEENT: Atraumatic, normocephalic. Oral mucosa is moist NECK: Supple. CARDIOVASCULAR: S1, S2 heard. Rate and rhythm regular. RESPIRATORY: Clear to auscultation. GASTROINTESTINAL: Abdomen is soft. MUSCULOSKELETAL: No tenderness. No edema. DERMATOLOGIC: No skin rash. NEUROLOGIC: Alert and awake and oriented X3. No focal neurologic deficits. Moving all the extremities. PSYCHIATRIC: Mood and affect normal. LABORATORY DATA: Potassium is 4.2, BUN is 76, creatinine is 2.3. ASSESSMENT AND PLAN: 1. Acute kidney injury on chronic kidney disease, stage 4, better. Follow up labs. We will monitor. 2. Hypertension. 3. Anemia. 4. Metabolic acidosis. Overall, labs are better. Avoid nephrotoxins. We will follow. Job ID: [id number]
[2019-03-12] MEDS: Sodium Chloride 0.9% 1,000 ML IV SCH (12:07)
[2019-03-12] MEDS: traMADol HCl 50 MG TAB PO PRN (13:20)
--- NOTE | 2019-03-12 13:47 | PDOC.PN ---
- Subjective Encounter Start Date: 03/12/19 Encounter Start Time: 13:44 Subjective: feels better. no new complains - Objective Resuscitation Status - Order Detail: 03/08/19 00:13 Resuscitation Status Routine Resuscitation Status: FULL: Full Resuscitation Discussed with: patient and family MAR Reviewed: Yes Vital Signs & Weight: Vital Signs (12 hours) Temp Pulse Resp BP Pulse Ox 03/12/19 07:58 98 03/12/19 07:42 97.5 F L 74 18 127/70 98 Weight Admit Weight 127 lb 13.89 oz Weight 127 lb 13.89 oz I&O: 03/11/19 03/12/19 03/13/19 06:59 06:59 06:59 Intake Total 2528 1920 Output Total 1120 2550 Balance 1408 -630 Result Diagrams: 03/12/19 06:33 03/12/19 06:33 Additional Labs: Accuchecks 03/12/19 03/12/19 03/11/19 12:11 06:01 19:31 POC Glucose 87 129 H 99 03/11/19 16:32 POC Glucose 102 Microbiology 03/07/19 19:49 Urine Suprapubic catheter Urine Culture - Final Escherichia coli Pseudomonas aeruginosa 03/07/19 20:17 Venous blood - Right Arm Blood Culture - Preliminary NO GROWTH AT 48 HOURS 03/07/19 20:17 Venous blood - Left Arm Blood Culture - Preliminary NO GROWTH AT 48 HOURS Phys Exam - Physical Examination Constitutional: NAD HEENT: PERRLA, moist MMs, sclera anicteric, oral pharynx no lesions Neck: no nodes, no JVD, supple, full ROM Respiratory: no wheezing, no rales, no rhonchi, clear to auscultation bilateral Cardiovascular: RRR systolic murmur Gastrointestinal: soft, non-tender, no distention, positive bowel sounds ostomy w soft stools.Urine assembly cleaner than yesterday in bag Musculoskeletal: no edema, pulses present Neurological: non-focal, normal sensation, moves all 4 limbs Psychiatric: normal affect, A&O x 3 Skin: no rash Dx/Plan (1) Catheter-associated urinary tract infection Code(s): T83.511A - I/I REACT D/T INDWELLING URETHRAL CATHETER, INIT; N39.0 - URINARY TRACT INFECTION, SITE NOT SPECIFIED Status: Acute Qualifiers: Comment: suprapubic catheter, infection and sepsis present on admission.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 monitor. 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 Diabetes mellitus complication status: with unspecified complications Qualified Code(s) : E11.8 - Type 2 diabetes mellitus with unspecified complications (7) Dyslipidemia Code(s): E78.5 - HYPERLIPIDEMIA, UNSPECIFIED Status: Chronic (8) History of colon cancer Code(s): Z85.038 - PERSONAL HISTORY OF MALIGNANT NEOPLASM OF LARGE INTESTINE Status: Chronic Comment: colostomy in place (9) History of lung cancer Code(s): Z85.118 - PERSONAL HISTORY OF MALIGNANT NEOPLASM OF BRONCHUS AND LUNG Status: Chronic (10) Hypertension Code(s): I10 - ESSENTIAL (PRIMARY) HYPERTENSION Status: Chronic Qualifiers: Comment: controlled (11) Hypothyroidism Code(s): E03.9 - HYPOTHYROIDISM, UNSPECIFIED Status: Chronic Qualifiers: Hypothyroidism type: unspecified Qualified Code(s): E03.9 - Hypothyroidism , unspecified - Plan continue antibiotics, PT/OT, respiratory therapy, incentive spirometry, out of bed/ambulate, DVT proph w/SCDs encouraged to ambulate.cont ABx -: awaiting rehab placement -: Hd stabel * . Review of Systems - Review of Systems Constitutional: weakness, malaise. negative: fever, chills, sweats, other ENT: negative: Ear Pain, Ear Discharge, Nose Pain, Nose Discharge, Nose Congestion, Mouth Pain, Mouth Swelling, Throat Pain, Throat Swelling, Other Respiratory: negative: Cough, Dry, Shortness of Breath, Hemoptysis, SOB with Excertion, Pleuritic Pain, Sputum, Wheezing Cardiovascular: negative: chest pain, palpitations, orthopnea, paroxysmal nocturnal dyspnea, edema, light headedness, other Gastrointestinal: negative: Nausea, Vomiting, Abdominal Pain, Diarrhea, Constipation, Melena, Hematochezia, Other Genitourinary: negative: Dysuria, Frequency, Incontinence, Hematuria, Retention , Other Musculoskeletal: negative: Neck Pain, Shoulder Pain, Arm Pain, Back Pain, Hand Pain, Leg Pain, Foot Pain, Other - Medications/Allergies Allergies/Adverse Reactions: Allergies Allergy/AdvReac Type Severity Reaction Status Date / Time acetaminophen [From Tylenol] Allergy Mild Verified 03/09/19 14:54 codeine Allergy Verified 03/09/19 14:54 Medications: Current Medications Albuterol Sulfate (Proventil Hfa) 2 puff INH Q4H PRN PRN Reason: SOB &/or Wheezing Atorvastatin Calcium (Lipitor) 20 mg PO HS [facility] Last Admin: 03/11/19 20:35 Dose: 20 mg Bisacodyl (Dulcolax) 10 mg PO DAILYPRN PRN PRN Reason: Constipation Calcitriol (Rocaltrol) 0.25 mcg PO DAILY [facility] Last Admin: 03/12/19 07:57 Dose: 0.25 mcg Carvedilol (Coreg) 3.125 mg PO BID [facility] Last Admin: 03/12/19 07:57 Dose: 3.125 mg Dextrose/Water (Dextrose 50%) 25 gm SLOW IVP PRN PRN PRN Reason: Hypoglycemia Ferrous Sulfate (Feosol) 325 mg PO BID-[facility] Last Admin: 03/12/19 07:57 Dose: 325 mg Glucagon (Glucagon) 1 mg IM PRN PRN PRN Reason: Hypoglycemia Heparin Sodium (Porcine) (Heparin) 5,000 units SC TID [facility] Last Admin: 03/12/19 07:58 Dose: 5,000 units Sodium Chloride (Normal Saline 0.9%) 1,000 mls @ 75 mls/hr IV .[id number] [facility] Last Admin: 03/12/19 12:07 Dose: 1,000 mls Dextrose/Water (D5w) 1,000 mls @ 0 mls/hr IV .Q0M PRN PRN Reason: Hypoglycemia Meropenem 1 gm/ Device 50 mls @ 100 mls/hr IVPB Q8H [facility] Last Admin: 03/12/19 07:58 Dose: 50 mls Insulin Human Lispro (Humalog) 0 units SC .MILD SLIDING SCALE PRN PRN Reason: Mild Correctional Scale Levothyroxine Sodium (Synthroid) 200 mcg PO DAILY-AC [facility] Last Admin: 03/12/19 07:58 Dose: 200 mcg Ondansetron HCl (Zofran) 4 mg IVP Q4H PRN PRN Reason: Nausea/Vomiting Last Admin: 03/09/19 08:47 Dose: 4 mg Oxybutynin Chloride (Ditropan) 10 mg PO DAILY [facility] Last Admin: 03/12/19 07:57 Dose: 10 mg Pantoprazole Sodium (Protonix) 40 mg PO DAILY [facility] Last Admin: 03/12/19 07:57 Dose: 40 mg Sertraline HCl (Zoloft) 50 mg PO HS [facility] Last Admin: 03/11/19 20:36 Dose: 50 mg Sodium Chloride (Flush - Normal Saline) 10 ml IVF Q12HR [facility] Last Admin: 03/12/19 07:58 Dose: Not Given Sodium Chloride (Flush - Normal Saline) 10 ml IVF PRN PRN PRN Reason: Saline Flush Tramadol HCl (Ultram) 50 mg PO Q4H PRN PRN Reason: Pain Last Admin: 03/12/19 13:20 Dose: 50 mg
--- NOTE | 2019-03-12 15:53 | EKG ---
Test Reason : Blood Pressure : / mmHG Vent. Rate : 102 BPM Atrial Rate : 102 BPM P-R Int : 156 ms QRS Dur : 080 ms QT Int : 358 ms P-R-T Axes : 000 024 125 degrees QTc Int : 466 ms Sinus tachycardia with Premature supraventricular complexes with occasional Premature ventricular com plexes RSR' or QR pattern in V1 suggests right ventricular conduction delay Confirmed by ONEIL YO ([id number]), electronic news gathering editor ROSA HELLER ([id number]) on 03/12/2019 3:53:32 PM Referred By: Confirmed By:ONEIL YO
[2019-03-12] MEDS: Atorvastatin Calcium 20 MG TAB PO SCH (21:19)
[2019-03-13] MEDS: MEROPENEM 1 GM/50 ML 1 GM in Premix Bag 1 BAG IVPB SCH ×3 (01:29→16:21)
[2019-03-13] MEDS: Sodium Chloride 0.9% 1,000 ML IV SCH ×2 (01:30→11:04)
[2019-03-13 06:20] LABS: Anion Gap 11 mmol/L (10-20); BUN (Urea Nitrogen) 23 mg/dL (8.4-25.7); Calc. Creatinine Clearance 23 mL/min (70-130); Calcium 8.1 mg/dL (7.8-10.44); Carbon Dioxide 19 mmol/L (23-31); Chloride 111 mmol/L (98-107); Estimated GFR-MDRD 28; Glucose 89 mg/dL (83-110); Potassium 4.5 mmol/L (3.5-5.1); Sodium 136 mmol/L (136-145)
[2019-03-13 06:29] LABS: #Eosinphils 0.6 thou/uL (0.0-0.7); #Lymphocytes 3.5 thou/uL (1.20-3.40); #Monocytes 0.8 thou/uL (0.11-0.59); #Neutrophils 6.2 thou/uL (1.40-6.50); %Basophils 0.4 % (0.0-1.0); %Eosinophils 5.6 % (0.0-10.0); %Monocytes 6.9 % (0.0-10.0); Hemoglobin 8.9 g/dL (14.0-18.0); Mean Corpuscular HGB CONC 31.6 g/dL (32.0-36.0); Mean Corpuscular Hemoglobin 29.7 pg (27.0-31.0); Mean Corpuscular Volume 93.9 fL (78.0-98.0); Mean Platelet Volume 6.8 fL (7.4-10.4); Platelet Count 173 thou/uL (130-400); RBC Distribution Width 15.1 % (11.5-14.5); Red Blood Cell (RBC) Count 3.01 mill/uL (4.70-6.10); White Blood Cell (WBC) Count 11.1 thou/uL (4.8-10.8)
[2019-03-13] MEDS: Levothyroxine Sodium 100 MCG TAB PO SCH (08:26)
[2019-03-13] MEDS: Ferrous Sulfate 325 MG TAB PO SCH ×2 (08:26→16:18)
[2019-03-13] MEDS: Oxybutynin 5 MG TAB PO SCH (08:27)
[2019-03-13] MEDS: Heparin 5,000 UNITS/ML VIAL SC SCH ×3 (08:27→21:08)
[2019-03-13] MEDS: Carvedilol 3.125 MG TAB PO SCH ×2 (08:27→21:08)
[2019-03-13] MEDS: Calcitriol 0.25 MCG CAP PO SCH (08:27)
[2019-03-13] MEDS: traMADol HCl 50 MG TAB PO PRN ×2 (08:31→17:25)
--- NOTE | 2019-03-13 14:09 | PDOC.PN ---
- Subjective Encounter Start Date: 03/13/19 Encounter Start Time: 14:06 Subjective: feels OK.no new complaints - Objective Resuscitation Status - Order Detail: 03/08/19 00:13 Resuscitation Status Routine Resuscitation Status: FULL: Full Resuscitation Discussed with: patient and family MAR Reviewed: Yes Vital Signs & Weight: Vital Signs (12 hours) Temp Pulse Resp BP Pulse Ox 03/13/19 12:42 97.6 F 77 16 136/82 95 03/13/19 08:38 97.4 F L 85 20 142/80 H 92 L 03/13/19 05:32 97.5 F L 74 14 119/67 98 Weight Admit Weight 127 lb 13.89 oz Weight 127 lb 13.89 oz I&O: 03/12/19 03/13/19 03/14/19 06:59 06:59 06:59 Intake Total 1920 2633 Output Total 2550 1750 Balance -630 883 Result Diagrams: 03/13/19 04:21 03/13/19 04:21 Additional Labs: Accuchecks 03/13/19 03/13/19 03/12/19 11:39 04:48 20:26 POC Glucose 154 H 103 127 H 03/12/19 16:24 POC Glucose 116 H Microbiology 03/07/19 20:17 Venous blood - Right Arm Blood Culture - Final NO GROWTH IN 5 DAYS 03/07/19 20:17 Venous blood - Left Arm Blood Culture - Final NO GROWTH IN 5 DAYS 03/07/19 19:49 Urine Suprapubic catheter Urine Culture - Final Escherichia coli Pseudomonas aeruginosa Phys Exam - Physical Examination Constitutional: NAD HEENT: PERRLA, moist MMs, sclera anicteric, oral pharynx no lesions Neck: no nodes, no JVD, supple, full ROM Respiratory: no wheezing, no rales, no rhonchi, clear to auscultation bilateral Cardiovascular: RRR, no significant murmur Gastrointestinal: soft, non-tender, no distention, positive bowel sounds ostomy w soft liquid stools. 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 monitor. Nephrology also following (4) Physical deconditioning Code(s): R53.81 - OTHER MALAISE Status: Chronic Comment: (5) Chronic anemia Code(s): D64.9 - ANEMIA, UNSPECIFIED Status: Chronic (6) DM2 (diabetes mellitus, type 2) Status: Chronic Qualifiers: Diabetes mellitus shelter insulin use: without shelter use Diabetes mellitus complication status: with unspecified complications Qualified Code(s) : E11.8 - Type 2 diabetes mellitus with unspecified complications (7) Dyslipidemia Code(s): E78.5 - HYPERLIPIDEMIA, UNSPECIFIED Status: Chronic (8) History of colon cancer Code(s): Z85.038 - PERSONAL HISTORY OF MALIGNANT NEOPLASM OF LARGE INTESTINE Status: Chronic Comment: colostomy in place (9) History of lung cancer Code(s): Z85.118 - PERSONAL HISTORY OF MALIGNANT NEOPLASM OF BRONCHUS AND LUNG Status: Chronic (10) Hypertension Code(s): I10 - ESSENTIAL (PRIMARY) HYPERTENSION Status: Chronic Qualifiers: Comment: controlled (11) Hypothyroidism Code(s): E03.9 - HYPOTHYROIDISM, UNSPECIFIED Status: Chronic Qualifiers: Hypothyroidism type: unspecified Qualified Code(s): E03.9 - Hypothyroidism , unspecified - Plan PT/OT, respiratory therapy, incentive spirometry, DVT proph w/SCDs awaiting rehab eval.Otherwise Ok to DC -: cont meropenam while inpatient. -: HD stable, -: supportive care -: encouraged ambulation,OOB * . Review of Systems - Review of Systems Constitutional: weakness, malaise. negative: fever, chills, sweats, other ENT: negative: Ear Pain, Ear Discharge, Nose Pain, Nose Discharge, Nose Congestion, Mouth Pain, Mouth Swelling, Throat Pain, Throat Swelling, Other Respiratory: negative: Cough, Dry, Shortness of Breath, Hemoptysis, SOB with Excertion, Pleuritic Pain, Sputum, Wheezing Cardiovascular: negative: chest pain, palpitations, orthopnea, paroxysmal nocturnal dyspnea, edema, light headedness, other Gastrointestinal: negative: Nausea, Vomiting, Abdominal Pain, Diarrhea, Constipation, Melena, Hematochezia, Other Genitourinary: negative: Dysuria, Frequency, Incontinence, Hematuria, Retention , Other Musculoskeletal: negative: Neck Pain, Shoulder Pain, Arm Pain, Back Pain, Hand Pain, Leg Pain, Foot Pain, Other Skin: negative: Rash, Lesions, Nicko, Bruising, Other Neurological: negative: Weakness, Numbness, Incoordination, Change in Speech, Confusion, Seizures, Other - Medications/Allergies Allergies/Adverse Reactions: Allergies Allergy/AdvReac Type Severity Reaction Status Date / Time acetaminophen [From Tylenol] Allergy Mild Verified 03/09/19 14:54 codeine Allergy Verified 03/09/19 14:54 Medications: Current Medications Albuterol Sulfate (Proventil Hfa) 2 puff INH Q4H PRN PRN Reason: SOB &/or Wheezing Atorvastatin Calcium (Lipitor) 20 mg PO HS [facility] Last Admin: 03/12/19 21:19 Dose: 20 mg Bisacodyl (Dulcolax) 10 mg PO DAILYPRN PRN PRN Reason: Constipation Calcitriol (Rocaltrol) 0.25 mcg PO DAILY [facility] Last Admin: 03/13/19 08:27 Dose: 0.25 mcg Carvedilol (Coreg) 3.125 mg PO BID [facility] Last Admin: 03/13/19 08:27 Dose: 3.125 mg Dextrose/Water (Dextrose 50%) 25 gm SLOW IVP PRN PRN PRN Reason: Hypoglycemia Ferrous Sulfate (Feosol) 325 mg PO BID-[facility] Last Admin: 03/13/19 08:26 Dose: 325 mg Glucagon (Glucagon) 1 mg IM PRN PRN PRN Reason: Hypoglycemia Heparin Sodium (Porcine) (Heparin) 5,000 units SC TID [facility] Last Admin: 03/13/19 13:54 Dose: 5,000 units Sodium Chloride (Normal Saline 0.9%) 1,000 mls @ 75 mls/hr IV .[id number] [facility] Last Admin: 03/13/19 11:04 Dose: 1,000 mls Dextrose/Water (D5w) 1,000 mls @ 0 mls/hr IV .Q0M PRN PRN Reason: Hypoglycemia Meropenem 1 gm/ Device 50 mls @ 100 mls/hr IVPB Q8H [facility] Last Admin: 03/13/19 08:26 Dose: 50 mls Insulin Human Lispro (Humalog) 0 units SC .MILD SLIDING SCALE PRN PRN Reason: Mild Correctional Scale Levothyroxine Sodium (Synthroid) 200 mcg PO DAILY-AC [facility] Last Admin: 03/13/19 08:26 Dose: 200 mcg Ondansetron HCl (Zofran) 4 mg IVP Q4H PRN PRN Reason: Nausea/Vomiting Last Admin: 03/09/19 08:47 Dose: 4 mg Oxybutynin Chloride (Ditropan) 10 mg PO DAILY [facility] Last Admin: 03/13/19 08:27 Dose: 10 mg Pantoprazole Sodium (Protonix) 40 mg PO DAILY [facility] Last Admin: 03/13/19 08:27 Dose: 40 mg Sertraline HCl (Zoloft) 50 mg PO HS [facility] Last Admin: 03/12/19 21:19 Dose: 50 mg Sodium Chloride (Flush - Normal Saline) 10 ml IVF Q12HR [facility] Last Admin: 03/13/19 08:28 Dose: Not Given Sodium Chloride (Flush - Normal Saline) 10 ml IVF PRN PRN PRN Reason: Saline Flush Tramadol HCl (Ultram) 50 mg PO Q4H PRN PRN Reason: Pain Last Admin: 03/13/19 08:31 Dose: 50 mg
[2019-03-13] MEDS: Atorvastatin Calcium 20 MG TAB PO SCH (21:08)
[2019-03-14] MEDS: MEROPENEM 1 GM/50 ML 1 GM in Premix Bag 1 BAG IVPB SCH ×2 (01:43→09:48)
[2019-03-14] MEDS: Sodium Chloride 0.9% 1,000 ML IV SCH (01:43)
[2019-03-14] MEDS: Ferrous Sulfate 325 MG TAB PO SCH ×2 (07:50→16:44)
[2019-03-14] MEDS: Calcitriol 0.25 MCG CAP PO SCH (07:50)
[2019-03-14] MEDS: Oxybutynin 5 MG TAB PO SCH (07:51)
[2019-03-14] MEDS: Levothyroxine Sodium 100 MCG TAB PO SCH (07:51)
[2019-03-14] MEDS: Heparin 5,000 UNITS/ML VIAL SC SCH ×3 (07:51→20:44)
[2019-03-14] MEDS: Carvedilol 3.125 MG TAB PO SCH ×2 (07:51→20:44)
[2019-03-14 08:17] LABS: #Basophils 0.1 thou/uL (0.0-0.2); #Eosinphils 0.4 thou/uL (0.0-0.7); #Lymphocytes 2.4 thou/uL (1.20-3.40); #Monocytes 0.6 thou/uL (0.11-0.59); #Neutrophils 7.1 thou/uL (1.40-6.50); %Basophils 0.7 % (0.0-1.0); %Eosinophils 4.1 % (0.0-10.0); %Lymphocytes 22.8 % (21.0-51.0); %Monocytes 5.8 % (0.0-10.0); %Neutrophils 66.7 % (42.0-75.0); Hemoglobin 8.5 g/dL (14.0-18.0); Mean Corpuscular HGB CONC 32.8 g/dL (32.0-36.0); Mean Corpuscular Volume 91.4 fL (78.0-98.0); Platelet Count 161 thou/uL (130-400); Red Blood Cell (RBC) Count 2.84 mill/uL (4.70-6.10); White Blood Cell (WBC) Count 10.6 thou/uL (4.8-10.8)
--- NOTE | 2019-03-14 08:31 | PRG ---
DATE OF SERVICE: 03/13/2019 SUBJECTIVE: Patient was seen and examined at bedside and overnight events noted. Patient denies any shortness of breath or chest pain or palpitation. No history of nausea or vomiting or diarrhea or fever or chills or cramps. OBJECTIVE: GENERAL: This is a well-built male, in no acute distress. VITAL SIGNS: Temperature 97.4. Pulse 85. Respiratory rate 20. Blood pressure 142/80. HEENT: Atraumatic, normocephalic. Oral mucosa is moist NECK: Supple. CARDIOVASCULAR: S1, S2 heard. Rate and rhythm regular. RESPIRATORY: Clear to auscultation. GASTROINTESTINAL: Abdomen is soft. MUSCULOSKELETAL: No tenderness. No edema. DERMATOLOGIC: No skin rash. NEUROLOGIC: Alert and awake and oriented X3. No focal neurologic deficits. Moving all the extremities. PSYCHIATRIC: Mood and affect normal. LABORATORY DATA: Potassium is 4.5, BUN is 23, creatinine is 2.2. ASSESSMENT AND PLAN: 1. Acute kidney injury on chronic kidney disease, stage 4, stable. 2. Hypertension. 3. Anemia. 4. Metabolic acidosis, stable. 5. Labs are getting better. Avoid nephrotoxins. Job ID: [id number]
[2019-03-14 08:39] LABS: Anion Gap 8 mmol/L (10-20); BUN (Urea Nitrogen) 19 mg/dL (8.4-25.7); Calc. Creatinine Clearance 24 mL/min (70-130); Calcium 7.8 mg/dL (7.8-10.44); Carbon Dioxide 21 mmol/L (23-31); Chloride 110 mmol/L (98-107); Estimated GFR-MDRD 31; Glucose 74 mg/dL (83-110); Potassium 3.6 mmol/L (3.5-5.1); Sodium 135 mmol/L (136-145)
[2019-03-14] MEDS: traMADol HCl 50 MG TAB PO PRN ×2 (09:47→17:25)
--- NOTE | 2019-03-14 10:49 | PRG ---
DATE OF SERVICE: 03/14/2019 SUBJECTIVE: Patient was seen and examined at bedside and overnight events noted. Patient denies any shortness of breath or chest pain or palpitation. No history of nausea or vomiting or diarrhea or fever or chills or cramps. OBJECTIVE: GENERAL: This is a well-built male, in no apparent distress. VITAL SIGNS: Temperature 97.5, heart rate 71, respiratory rate blood pressure . HEENT: Atraumatic, normocephalic. Oral mucosa is moist NECK: Supple. CARDIOVASCULAR: S1, S2 heard. Rate and rhythm regular. RESPIRATORY: Clear to auscultation. GASTROINTESTINAL: Abdomen is soft. MUSCULOSKELETAL: No tenderness. No edema. DERMATOLOGIC: No skin rash. NEUROLOGIC: Alert and awake and oriented X3. No focal neurologic deficits. Moving all the extremities. PSYCHIATRIC: Mood and affect normal. LABORATORY DATA: Hemoglobin is 8.5, potassium is 3.6, BUN is 19, creatinine is 2.1. ASSESSMENT AND PLAN: 1. Acute kidney injury on chronic kidney disease, stage 4 with improvement in renal function. 2. Hypertension. 3. Anemia. 4. Metabolic acidosis, stable. Renal function with improvement. Avoid nephrotoxins. We will follow. Job ID: [id number]
--- NOTE | 2019-03-14 13:45 | PDOC.PN ---
- Subjective Encounter Start Date: 03/14/19 Encounter Start Time: 13:42 Subjective: sat up in chair today and feels better -: no new complaints - Objective Resuscitation Status - Order Detail: 03/08/19 00:13 Resuscitation Status Routine Resuscitation Status: FULL: Full Resuscitation Discussed with: patient and family MAR Reviewed: Yes Vital Signs & Weight: Vital Signs (12 hours) Temp Pulse Resp BP Pulse Ox 03/14/19 12:20 98.2 F 75 18 112/67 92 L 03/14/19 08:06 97.5 F L 78 20 144/82 H 96 Weight Admit Weight 127 lb 13.89 oz Weight 127 lb 13.89 oz I&O: 03/13/19 03/14/19 03/15/19 06:59 06:59 06:59 Intake Total 2633 1300 Output Total 1750 1050 Balance 883 250 Result Diagrams: 03/14/19 07:41 03/14/19 07:41 Additional Labs: Accuchecks 03/14/19 03/14/19 03/13/19 11:51 06:04 19:37 POC Glucose 79 97 99 03/13/19 16:13 POC Glucose 85 Laboratory Tests 03/07/19 03/08/19 03/09/19 20:17 02:54 05:35 Creatinine 3.90 H 3.56 H 3.19 H 03/10/19 03/11/19 03/12/19 05:46 07:04 06:33 Creatinine 2.76 H 2.56 H 2.36 H 03/13/19 03/14/19 04:21 07:41 Creatinine 2.25 H 2.11 H Phys Exam - Physical Examination Constitutional: NAD HEENT: PERRLA, moist MMs, sclera anicteric, oral pharynx no lesions Neck: no nodes, no JVD, supple, full ROM Respiratory: no wheezing, no rales, no rhonchi, clear to auscultation bilateral Cardiovascular: RRR, no significant murmur Gastrointestinal: soft, non-tender, no distention, positive bowel sounds ostomy and SP cathter in place Musculoskeletal: no edema, pulses present Neurological: non-focal, normal sensation, moves all 4 limbs Psychiatric: normal affect, A&O x 3 Skin: no rash Dx/Plan (1) Catheter-associated urinary tract infection Code(s): T83.511A - I/I REACT D/T INDWELLING URETHRAL CATHETER, INIT; N39.0 - URINARY TRACT INFECTION, SITE NOT SPECIFIED Status: Acute Qualifiers: Comment: suprapubic catheter, infection and sepsis present on admission.Catheter changed 3 days [facility] by [facility] E.coli and Pseudomonas on Urine CX. 7 days meropenam finished.E.Coli resistant to most excpet Bactrim which can not be used d/t VINAY/CKD. will add PO Levaquin for Pseudomonas for 5v more days. clinically improved (2) Sepsis with acute organ dysfunction Code(s): A41.9 - SEPSIS, UNSPECIFIED ORGANISM; R65.20 - SEVERE SEPSIS WITHOUT SEPTIC SHOCK Status: Acute Comment: #1. improved clinically.renal Fx improving (3) Acute worsening of stage 3 chronic kidney disease Code(s): N18.3 - CHRONIC KIDNEY DISEASE, STAGE 3 (MODERATE) Status: Acute Comment: improving. monitor. Nephrology also following (4) Physical deconditioning Code(s): R53.81 - OTHER MALAISE Status: Chronic Comment: (5) Chronic anemia Code(s): D64.9 - ANEMIA, UNSPECIFIED Status: Chronic (6) DM2 (diabetes mellitus, type 2) Status: Chronic Qualifiers: Diabetes mellitus alf insulin use: without joint terminal attack controller use Diabetes mellitus complication status: with unspecified complications Qualified Code(s) : E11.8 - Type 2 diabetes mellitus with unspecified complications (7) Dyslipidemia Code(s): E78.5 - HYPERLIPIDEMIA, UNSPECIFIED Status: Chronic (8) History of colon cancer Code(s): Z85.038 - PERSONAL HISTORY OF MALIGNANT NEOPLASM OF LARGE INTESTINE Status: Chronic Comment: colostomy in place (9) History of lung cancer Code(s): Z85.118 - PERSONAL HISTORY OF MALIGNANT NEOPLASM OF BRONCHUS AND LUNG Status: Chronic (10) Hypertension Code(s): I10 - ESSENTIAL (PRIMARY) HYPERTENSION Status: Chronic Qualifiers: Comment: controlled (11) Hypothyroidism Code(s): E03.9 - HYPOTHYROIDISM, UNSPECIFIED Status: Chronic Qualifiers: Hypothyroidism type: unspecified Qualified Code(s): E03.9 - Hypothyroidism , unspecified - Plan continue antibiotics, PT/OT, out of bed/ambulate, DVT proph w/SCDs OK to DC when accpeted by Rehab.Avoidable day #1 -: HD stable -: Encourage ambulation/PT/OT * . Review of Systems - Review of Systems Constitutional: weakness. negative: fever, chills, sweats, malaise, other ENT: negative: Ear Pain, Ear Discharge, Nose Pain, Nose Discharge, Nose Congestion, Mouth Pain, Mouth Swelling, Throat Pain, Throat Swelling, Other Respiratory: negative: Cough, Dry, Shortness of Breath, Hemoptysis, SOB with Excertion, Pleuritic Pain, Sputum, Wheezing Cardiovascular: negative: chest pain, palpitations, orthopnea, paroxysmal nocturnal dyspnea, edema, light headedness, other Gastrointestinal: negative: Nausea, Vomiting, Abdominal Pain, Diarrhea, Constipation, Melena, Hematochezia, Other Genitourinary: negative: Dysuria, Frequency, Incontinence, Hematuria, Retention , Other Musculoskeletal: negative: Neck Pain, Shoulder Pain, Arm Pain, Back Pain, Hand Pain, Leg Pain, Foot Pain, Other Neurological: negative: Weakness, Numbness, Incoordination, Change in Speech, Confusion, Seizures, Other - Medications/Allergies Allergies/Adverse Reactions: Allergies Allergy/AdvReac Type Severity Reaction Status Date / Time acetaminophen [From Tylenol] Allergy Mild Verified 03/09/19 14:54 codeine Allergy Verified 03/09/19 14:54 Medications: Current Medications Albuterol Sulfate (Proventil Hfa) 2 puff INH Q4H PRN PRN Reason: SOB &/or Wheezing Atorvastatin Calcium (Lipitor) 20 mg PO HS [facility] Last Admin: 03/13/19 21:08 Dose: 20 mg Bisacodyl (Dulcolax) 10 mg PO DAILYPRN PRN PRN Reason: Constipation Calcitriol (Rocaltrol) 0.25 mcg PO DAILY [facility] Last Admin: 03/14/19 07:50 Dose: 0.25 mcg Carvedilol (Coreg) 3.125 mg PO BID [facility] Last Admin: 03/14/19 07:51 Dose: 3.125 mg Dextrose/Water (Dextrose 50%) 25 gm SLOW IVP PRN PRN PRN Reason: Hypoglycemia Ferrous Sulfate (Feosol) 325 mg PO BID-WM [facility] Last Admin: 03/14/19 07:50 Dose: 325 mg Glucagon (Glucagon) 1 mg IM PRN PRN PRN Reason: Hypoglycemia Heparin Sodium (Porcine) (Heparin) 5,000 units SC TID [facility] Last Admin: 03/14/19 07:51 Dose: 5,000 units Dextrose/Water (D5w) 1,000 mls @ 0 mls/hr IV .Q0M PRN PRN Reason: Hypoglycemia Insulin Human Lispro (Humalog) 0 units SC .MILD SLIDING SCALE PRN PRN Reason: Mild Correctional Scale Levofloxacin (Levaquin) 500 mg PO 0600 [facility] Levothyroxine Sodium (Synthroid) 200 mcg PO DAILY-AC [facility] Last Admin: 03/14/19 07:51 Dose: 200 mcg Ondansetron HCl (Zofran) 4 mg IVP Q4H PRN PRN Reason: Nausea/Vomiting Last Admin: 03/09/19 08:47 Dose: 4 mg Oxybutynin Chloride (Ditropan) 10 mg PO DAILY [facility] Last Admin: 03/14/19 07:51 Dose: 10 mg Pantoprazole Sodium (Protonix) 40 mg PO DAILY [facility] Last Admin: 03/14/19 07:51 Dose: 40 mg Sertraline HCl (Zoloft) 50 mg PO HS [facility] Last Admin: 03/13/19 21:08 Dose: 50 mg Sodium Chloride (Flush - Normal Saline) 10 ml IVF Q12HR [facility] Last Admin: 03/14/19 07:49 Dose: Not Given Sodium Chloride (Flush - Normal Saline) 10 ml IVF PRN PRN PRN Reason: Saline Flush Tramadol HCl (Ultram) 50 mg PO Q4H PRN PRN Reason: Pain Last Admin: 03/14/19 09:47 Dose: 50 mg
[2019-03-14] MEDS: Atorvastatin Calcium 20 MG TAB PO SCH (20:44)
[2019-03-15] MEDS: traMADol HCl 50 MG TAB PO PRN ×2 (00:02→16:42)
[2019-03-15] MEDS: Levothyroxine Sodium 100 MCG TAB PO SCH (06:13)
[2019-03-15 06:46] LABS: #Basophils 0.1 thou/uL (0.0-0.2); #Eosinphils 0.6 thou/uL (0.0-0.7); #Lymphocytes 3.4 thou/uL (1.20-3.40); #Monocytes 0.5 thou/uL (0.11-0.59); #Neutrophils 3.9 thou/uL (1.40-6.50); %Eosinophils 6.8 % (0.0-10.0); %Lymphocytes 40.3 % (21.0-51.0); %Monocytes 5.5 % (0.0-10.0); %Neutrophils 46.3 % (42.0-75.0); Hemoglobin 8.6 g/dL (14.0-18.0); Mean Corpuscular HGB CONC 32.5 g/dL (32.0-36.0); Mean Corpuscular Hemoglobin 30.2 pg (27.0-31.0); Mean Corpuscular Volume 92.9 fL (78.0-98.0); Mean Platelet Volume 7.5 fL (7.4-10.4); Platelet Count 169 thou/uL (130-400); RBC Distribution Width 15.1 % (11.5-14.5); Red Blood Cell (RBC) Count 2.85 mill/uL (4.70-6.10); White Blood Cell (WBC) Count 8.3 thou/uL (4.8-10.8)
[2019-03-15 07:00] LABS: Anion Gap 9 mmol/L (10-20); BUN (Urea Nitrogen) 17 mg/dL (8.4-25.7); Calc. Creatinine Clearance 25 mL/min (70-130); Calcium 8.1 mg/dL (7.8-10.44); Carbon Dioxide 20 mmol/L (23-31); Chloride 110 mmol/L (98-107); Estimated GFR-MDRD 31; Glucose 79 mg/dL (83-110); Potassium 3.7 mmol/L (3.5-5.1); Sodium 135 mmol/L (136-145)
[2019-03-15] MEDS: Ferrous Sulfate 325 MG TAB PO SCH ×2 (07:38→16:43)
[2019-03-15] MEDS: Carvedilol 3.125 MG TAB PO SCH (07:38)
[2019-03-15] MEDS: Oxybutynin 5 MG TAB PO SCH (07:38)
[2019-03-15] MEDS: Calcitriol 0.25 MCG CAP PO SCH (07:38)
[2019-03-15] MEDS: Heparin 5,000 UNITS/ML VIAL SC SCH ×2 (07:39→15:24)
[2019-03-15] MEDS ORDERED: Ondansetron ODT 4 MG TAB SL PRN (11:47)
--- NOTE | 2019-03-15 14:35 | PRG ---
DATE OF SERVICE: 03/15/2019 SUBJECTIVE: Patient was seen and examined at bedside and overnight events noted. Patient denies any shortness of breath or chest pain or palpitation. No history of nausea or vomiting or diarrhea or fever or chills or cramps. OBJECTIVE: GENERAL: This is a well built male, in no acute distress. VITAL SIGNS: Temperature 97.7. Heart rate 70. Respiratory rate 18. Blood pressure 128/76. HEENT: Atraumatic, normocephalic. Oral mucosa is moist NECK: Supple. CARDIOVASCULAR: S1, S2 heard. Rate and rhythm regular. RESPIRATORY: Clear to auscultation. GASTROINTESTINAL: Abdomen is soft. MUSCULOSKELETAL: No tenderness. No edema. DERMATOLOGIC: No skin rash. NEUROLOGIC: Alert and awake and oriented X3. No focal neurologic deficits. Moving all the extremities. PSYCHIATRIC: Mood and affect normal. LABORATORY DATA: Potassium is 3.7, BUN is 17, and creatinine is 2.0. ASSESSMENT AND PLAN: 1. Acute kidney injury on chronic kidney, stage 4. 2. Hypertension. 3. Anemia. 4. Metabolic acidosis. 5. Renal function is better. Job ID: [id number]
[2019-03-15 15:43] VITALS: BP 104/64; TEMP 97.4
--- NOTE | 2019-03-15 19:23 | DIS ---
DATE OF ADMISSION: 03/07/2019 DATE OF DISCHARGE: 03/15/2019 CONDITION: At the time of discharge, stable and improved. DISCHARGE DISPOSITION: Inpatient rehab at [facility]. PRIMARY CARE PHYSICIAN: Dr. Griffin. DISCHARGE DIAGNOSES: 1. Catheter associated urinary tract infection. The patient has a suprapubic catheter in place. 2. Sepsis due to urinary tract infection, improved. 3. Acute on chronic kidney disease. 4. Chronic physical deconditioning, worsened. 5. Chronic anemia likely due to anemia of chronic kidney disease. 6. Diabetes mellitus type 2. 7. Dyslipidemia. 8. History of colon cancer status post colostomy. 9. History of lung cancer. 10. Hypertension. 11. Hypothyroidism. DISCHARGE MEDICATIONS: New medication: Levofloxacin 500 mg p.o. daily for 5 more days and Florastor 250 mg p.o. daily for 10 days. Resume: 1. Calcitriol 0.25 mcg. 2. Atorvastatin 20 mg. 3. Albuterol p.r.n. 4. Tramadol p.r.n. 5. Sertraline 50 mg at bedtime. 6. Ditropan 10 mg daily. 7. Levothyroxine 200 mcg daily. 8. Ferrous sulfate 325 mg daily. 9. Nexium 40 mg daily. 10. Carvedilol 3.125 mg daily. IN-HOUSE CONSULTATION: Nephrology, Dr. Gerber and Dr. Rowley. PROCEDURES DONE IN THE HOSPITAL: None. HISTORY OF PRESENTING ILLNESS: Mr. Tipton is a 78-year-old male with past medical history of suprapubic catheter with frequent urinary tract infection as well as chronic deconditioning, chronic kidney disease, colon cancer status post chemotherapy, radiation and colostomy, who presented from home with complaints of cloudy urine. They follow up as an outpatient with Urology and have home health nurse to do the catheter change at home every month. His catheter was changed three days prior to presentation. They were noticed that his urine was cloudy and the patient was also getting more and more weak and dizzy every time he will get up. Upon presentation to the emergency room, his blood pressure was 100/55 and he was afebrile. His 12-lead EKG showed some sinus tachycardia. He was found to have leukocytosis with over 20,000 white cells out of which 78% were neutrophils. His creatinine was bumped up to 3.90, lactic acid elevated to 2.7. Indeterminate range troponin and positive urinalysis for nitrite and leukocyte esterase. He was admitted with a presumptive diagnosis of sepsis secondary to urinary tract infection and acute renal insufficiency. He was started on empiric IV antibiotics and IV fluids, and Nephrology was consulted. Please see admission history and physical dictated by Dr. Garcia on 03/08/2019. HOSPITAL COURSE: The patient's urine culture grew out E coli and Pseudomonas. They both were sensitive to meropenem. He finished the meropenem for 7 days in the hospital and then he lost IV access. Antibiotic was changed to levofloxacin for which Pseudomonas was sensitive. He has finished 7 days of meropenem for the E coli in the urine. His urinary catheter was irrigated and his urine cleared up. Otherwise, his hospital course was rather unremarkable. His leukocytosis improved from 20,000 to 8000 with 46% neutrophils. He remained afebrile. Nephrology followed the patient along and his creatinine also improved from 3.90 to 2.07, which is at his baseline. The patient was extremely deconditioned requiring OT/PT. He has not really been able to work much around the house, but he is not bed bound. Rehab was consulted and the patient was accepted and will be discharged today. He was examined prior to discharge. PHYSICAL EXAMINATION: VITAL SIGNS: This morning, temperature 97.7, pulse of 70, saturating 97% on room air, blood pressure 128/76. GENERAL: No acute distress. CHEST: Clear to auscultation bilaterally. HEART: Rate and rhythm regular. : Colostomy bag has soft brown stool and suprapubic catheter has clean urine. TIME SPENT: Total time spent in the discharge, 35 minutes. DISCHARGE PLAN: Discharge plan was discussed with the patient and his daughter present at bedside, who verbalized understanding. Job ID: [id number]
== END 2019-03-15 18:02 | DRG 698 ==
LOC: ERS 19:29 → ERHOLD 22:21 → T4-A 03-08 12:59
PROVIDERS: ADMIT Internal Medicine; ATTEND Internal Medicine
DX: T83.518A Infection and inflammatory reaction due to other urinary catheter, initial encounter (principal); A41.51 Sepsis due to Escherichia coli [E. coli]; N18.4 Chronic kidney disease, stage 4 (severe); E87.1 Hypo-osmolality and hyponatremia; N17.9 Acute kidney failure, unspecified; E78.5 Hyperlipidemia, unspecified; E03.9 Hypothyroidism, unspecified; F32.9 Major depressive disorder, single episode, unspecified; I12.9 Hypertensive chronic kidney disease with stage 1 through stage 4 chronic kidney disease, or unspecified chronic kidney disease; E11.22 Type 2 diabetes mellitus with diabetic chronic kidney disease; F41.9 Anxiety disorder, unspecified; R53.81 Other malaise; D63.1 Anemia in chronic kidney disease; Z85.038 Personal history of other malignant neoplasm of large intestine; Z95.1 Presence of aortocoronary bypass graft; Z88.6 Allergy status to analgesic agent; Z79.82 Long term (current) use of aspirin; Z88.5 Allergy status to narcotic agent; Z85.118 Personal history of other malignant neoplasm of bronchus and lung; Y84.6 Urinary catheterization as the cause of abnormal reaction of the patient, or of later complication, without mention of misadventure at the time of the procedure
CPT/HCPCS: 36415; 36416; 51705; 80048; 80053; 80069; 81003; 81015; 82553; 83605; 83735; 84484; 85025; 87040; 87077; 87086; 87186; 90471; 90670; 93005; 96361; 96365; G0009; J0696; J1644; J2185; J2270; J2405; J3490; Q0162; Q5105